=== PATIENT | male | born 1940 | race Caucasian/White ===

== ENCOUNTER 2017-01-16 21:09 | Inpatient (IN) ==
[2017-01-16 22:19] LABS: BASO% 0.1 % (0.0-0.8); EOS# 0.04 X1000 (0.0-0.7); EOS% 0.4 % (0.0-10.0); HEMATOCRIT 43.4 % (42.0-52.0); HEMOGLOBIN 13.8 g/dL (14.0-18.0); IMM GRAN# 0.03 X1000 (0.0-0.04); IMM GRAN% 0.3 % (0.0-0.5); LYMPH# 0.22 X1000 (1.2-3.4); LYMPH% 2.3 % (20.5-51.1); MANUAL DIFF NEEDED? NO; MCH 32.5 PG (27-31); MCHC 31.8 g/dL (33-37); MCV 102.4 FL (81-99); MONO# 0.11 X1000 (0.11-0.59); MONO% 1.2 % (1.7-9.3); MPV 10.6 FL (7.4-10.4); NEUT% 95.7 % (42.2-75.2); PLT 116 X1000 (130-400); RBC 4.24 XMIL (4.7-6.1)
[2017-01-16 22:36] LABS: CALCIUM 9.2 mg/dL (8.8-10.2); POTASSIUM 4.4 mmol/L (3.5-5.1); TOTAL BILIRUBIN 2.5 mg/dL (0.20-1.00); TOTAL PROTEIN 7.3 g/dL (6.3-8.3)
[2017-01-16] MEDS ORDERED: NS 2,000 ML ONE (22:51)
[2017-01-16] MEDS ORDERED: ROCEPHIN 1 GM/NS 1 GM/50 ML IVPB IV ONE (22:56)
[2017-01-16] MEDS ORDERED: VANCOMYCIN 1 GM/NS 1 GM/250 ML IVPB IV ONE (22:56)
[2017-01-16] MEDS ORDERED: NS 1,000 ML IV ONE ×3 (23:05→23:09)
[2017-01-17 00:27] LABS: INR 4.49; PROTIME 51.9 Seconds (9.2-11.7)
[2017-01-17] MEDS ORDERED: LASIX IV ONE ×2 (01:20→18:27)
--- NOTE | 2017-01-17 01:21 | PROVIDER DOCUMENTATION ---
This chart was entered by Ricardo Boothe Scribe, acting as scribe for Jam Doss MD. HPI-General Adult - General Chief Complaint: Weakness Stated Complaint: GENERALIZED PAIN, FEVER Time Seen by Provider: 01/16/17 21:35 Source: patient, family Allergies/Adverse Reactions: Patient Allergies Allergy/AdvReac Type Severity Reaction Status Date / Time No Known Allergies Allergy Verified 01/16/17 22:04 Home Medications: Home Medication List Medication Instructions Recorded Confirmed Last Taken Type Hydrocodone/APAP 7.5 mg/325 mg 1 each PO Q6H PRN PRN #15 tablet 07/18/16 Unknown Rx [[place]-7.5] - History of Present Illness -Gen Adult Nature of Presenting Problems: Pt is a 76 yowm who presents to ER with CC of confusion/chills. Family reports that last night, as pt was going to sleep, he had a sudden onset of chills. Family reports that they wrapped pt in a heated blanket and pt was able to sleep fine. Family states that pt was afebrile all day today, but sxs returned tonight when pt tried to go to sleep. Family also states that pt has been confused/altered all day today. Location of Pain/Injury: reports: none (Family states that pt complained of "pain all over" earlier today, but pt denies pain on exam.) Pain Radiation: reports: no radiation Quality of Pain: reports: none Severity: reports: moderate Onset/Duration: reports: last night Timing: reports: still present Associated Symptoms: reports: fever/chills, shortness of breath, weakness, other (confusion). denies: anxiety, chest pain, diarrhea, dizziness, headaches , heartburn, loss of appetite, muscle aches, sinus congestion/drainage, nausea, syncope, vomiting Similar Symptoms Previously?: No Review of Systems - Adult - REVIEW OF SYSTEMS - ADULT Constitutional: reports: chills, fatique. denies: fever, night sweats, weight gain, weight loss Eyes: reports: no symptoms reported Ears, Nose, Mouth & Throat: reports: no symptoms reported Cardiovascular: denies: chest pain, edema, irregular heart rate, orthopnea, palpitations, poor circulation, syncope Respiratory: reports: shortness of breath. denies: chronic cough, cough, dyspnea on exertion, excessive sputum production, hemoptysis, pleurisy, wheezing Gastrointestinal: reports: no symptoms reported Genitourinary: reports: no symptoms reported Musculoskeletal: reports: no symptoms reported Integumentary: reports: no symptoms reported Neurological: reports: no symptoms reported Psychiatric: reports: other (confused). denies: anxiety, anti-depressant use, alcohol/drug dependence, depression, emotional problems, insomnia, panic attacks , suicidal thoughts Endocrine: reports: no symptoms reported Hematologic/Lymphatic: reports: no symptoms reported Allergic/Immunologic: reports: no symptoms reported All Other Systems: Reviewed and Negative Past History - Adult - PAST MEDICAL HISTORY-ADULT Review of Records: reports: Nursing Assessment Review, Medications Reviewed - IMMUNIZATION STATUS Childhood Immunizations: See Nurse Assessment Flu Vaccine: See Nurse Assessment Physical Exam-General - PHYSICAL EXAM-ADULT Initial Vital Signs Reviewed: Yes - CONSTITUTIONAL General Appearance: appears well, alert, mild distress, lethargic, slow to respond. negative: no apparent distress - EYES Eyes: PERRL/EOMI, scleral icterus. negative: pink conjunctivae - HEAD, EARS, NOSE, MOUTH & THROAT HENMT: normocephalic/atraumatic, moist mucous membranes, normal ENT inspection, TMs normal, pharynx normal. negative: pharyngeal erythema, tonsillar exudate - NECK Neck: non-tender, full range of motion, supple, normal inspection. negative: C- spine tenderness, limited range of motion, lymphadenopathy - RESPIRATORY Respiratory: chest non-tender, lungs clear, no pleuratic chest pain, no respiratory distress, no accessory muscle use, decreased breath sounds (coarse breath sounds). negative: normal breath sounds, respiratory distress, accessory muscle use, wheezing - CARDIOVASCULAR Cardiovascular: normal peripheral pulses, tachycardia, other (HTN (155/118)). negative: regular rate, rhythm, bradycardia - GASTROINTESTINAL (ABDOMEN) Abdominal Exam: normal bowel sounds, non tender, soft, no organomegaly, no pulsatile mass. negative: abdominal bruit, guarding, rebound, tenderness - LYMPHATIC Lymphatic: no adenopathy - MUSCULOSKELETAL Back Exam: normal inspection, no CVA tenderness, no vertebral tenderness. negative: CVA tenderness, vertebral tenderness Extremity: normal range of motion, non-tender, normal gait, normal inspection, no pedal edema, no calf tenderness, normal capillary refill, pelvis stable, swelling. negative: deformity, erythema, inflammation, tenderness - SKIN Integumentary: normal turgor, warm/dry, jaundice (mild to moderately). 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 negative: facial droop, focal weakness, motor weakness, sensory deficit - PSYCHIATRIC Psych/Mental Status: oriented x 3, disheveled, other (confused). negative: normal mood/affect, normal thought content, normal thought process Progress - PLAN OF CARE/RESULTS Progress/Plan/Lab Results: Vital Signs - 8 hr 01/16/17 21:25 Temperature 98.7 F Pulse Rate 105 H Respiratory Rate 24 Blood Pressure 149/87 O2 Sat by Pulse Oximetry 94 L Orders Category Date Time Status EKG [EKG] Stat Ther 01/16/17 21:28 Ordered Result Diagrams: 01/16/17 22:00 01/16/17 22:00 - EKG 1 Time of EKG reading by physician:: 21:27 EKG Read and Signed by:: Jam Doss EKG Interpretation (*Must complete 3 of following elements*): Abnormal Rate: 121 Rhythm: Ventricular-paced rhythm with PAC with aberrant conduction 2 Time of EKG reading by physician:: 00:02 EKG Read and Signed by:: Jam Doss EKG Interpretation (*Must complete 3 of following elements*): Abnormal ( Nonspecific intraventricular block; Possible anterolateral infarct, age undetermined) Rate: 135 Rhythm: Undetermined rhythm - XRAY 1 XRAY: Bilateral XRAY Study: Chest Impression: See EMR Report XRAY Interpretation: No acute findings, no significant changes from 07/18/2016 - Dr. Doss Departure - Departure Date of Disposition Decision: 01/17/17 Time of Disposition Decision: 01:18 DIAGNOSIS: Cholelithiases Disposition: ADMITTED INPATIENT 09 Certified Medical Emergency: Emergent Condition: Stable Referrals and Follow-Ups: Zachary Landis MD [Primary Care Provider] - - Critical Care Note This patient required my direct & personal management of CC.: No Attestation - Physician/ ERIKA Attestation The physician spent face to face time with patient:: Yes Advanced Practice Provider documentation review:: The physician spent face to face time with this patient and agrees with all MLP documentation, treatment, and medical decision making by the MLP. See provider notes for further information. This chart was documented by the indicated scribe, (Ricardo Boothe Scribe) and accurately reflects the services I performed and decisions made by , Jam Doss MD, as attested by the provider's signature.
[2017-01-17 02:31] LABS: DIGOXIN 0.3 ng/mL (0.9-2.0)
[2017-01-17 03:13] LABS: URINE CULTURE NEEDED? NO; URINE MICRO REVIEW NEEDED? NO; URINE SOURCE CATH
[2017-01-17 03:17] LABS: BILIRUBIN URINE NEGATIVE (NEGATIVE); BLOOD URINE NEGATIVE (NEGATIVE); COLOR YELLOW; GLUCOSE URINE NEGATIVE (NEGATIVE); LEUKOCYTES URINE NEGATIVE (NEGATIVE); NITRITE URINE NEGATIVE (NEGATIVE); PH URINE 5.5; PROTEIN URINE 50 mg/dL (NEGATIVE); SP GRAVITY URINE 1.044; TURBIDITY URINE CLEAR (CLEAR); UROBILINOGEN URINE 3 mg/dL (NORMAL)
[2017-01-17 03:18] LABS: UR EPITHELIAL CELLS <10 /HPF (<10); URINE BACTERIA NEGATIVE /HPF; URINE RBC <10 /HPF (<10); URINE WBC <10 /HPF (<10)
[2017-01-17] MEDS ORDERED: ZOFRAN IV PRN (04:09)
[2017-01-17] MEDS ORDERED: MORPHINE IV PRN (04:14)
[2017-01-17] MEDS: PROTONIX IV SCH (04:35)
[2017-01-17] MEDS: ZOSYN 3.375 GM/NS 3.375 GM/50 ML IVPB IV SCH ×4 (04:35→23:13)
[2017-01-17] MEDS: SODIUM CHLORIDE 0.9% INJ SCH (04:35)
--- NOTE | 2017-01-17 06:11 | SEPSIS: TISSUE PERFUSION ASSMT ---
Sepsis: Tissue Perfusion Assmt - Physical Exam Assessment Date: 01/17/17 Time Assessment Initialized: 03:00 Vital Signs: Last Vital Signs Temp 96.3 F L 01/17/17 04:14 Pulse 113 H 01/17/17 04:14 Resp 30 H 01/17/17 04:14 BP 144/94 01/17/17 04:14 Pulse Ox 95 01/17/17 04:14 Height 5 ft 11 in Weight 268 lb Lung Sounds:: diminished Heart Sounds:: Regular Capillary Refill Time: Less Than 2 Seconds Peripheral Pulse Evaluation:: radial (R): 3+, radial (L): 3+, dorsalis-pedis (R) : 2+, dorsalis-pedis (L): 2+ Skin Exam:: pale - Impression Impression:: Tissue Perfusion Adequate - Plan Plan:: See Orders
[2017-01-17 06:14] LABS: HEMOGLOBIN A1C 6.7 % (4.8-6.0)
[2017-01-17 06:14] LABS: BASO% 0.1 % (0.0-0.8); EOS# 0.01 X1000 (0.0-0.7); EOS% 0.1 % (0.0-10.0); HEMATOCRIT 39.2 % (42.0-52.0); HEMOGLOBIN 12.8 g/dL (14.0-18.0); IMM GRAN# 0.08 X1000 (0.0-0.04); IMM GRAN% 0.4 % (0.0-0.5); LYMPH# 0.47 X1000 (1.2-3.4); LYMPH% 2.4 % (20.5-51.1); MANUAL DIFF NEEDED? YES; MCH 33.1 PG (27-31); MCHC 32.7 g/dL (33-37); MCV 101.3 FL (81-99); MONO# 1.43 X1000 (0.11-0.59); MONO% 7.2 % (1.7-9.3); MPV 10.8 FL (7.4-10.4); NEUT% 89.8 % (42.2-75.2); PLT 97 X1000 (130-400); RBC 3.87 XMIL (4.7-6.1)
[2017-01-17] MEDS ORDERED: NS 1,000 ML IV SCH (06:21)
[2017-01-17 06:28] LABS: PROTIME 78.8 Seconds (9.2-11.7)
[2017-01-17 06:31] LABS: INR 6.65
[2017-01-17 06:39] LABS: ALBUMIN 3.5 g/dL (3.5-5.0); CALCIUM 8.7 mg/dL (8.8-10.2); POTASSIUM 3.7 mmol/L (3.5-5.1); TOTAL BILIRUBIN 2.28 mg/dL (0.20-1.00); TOTAL PROTEIN 6.7 g/dL (6.3-8.3)
[2017-01-17] MEDS: SYNTHROID PO SCH (07:01)
[2017-01-17 07:08] LABS: BANDS 16 % (0-1); MONO 14 % (1-9)
[2017-01-17] MEDS: HUMALOG SUBQ SCH ×4 (07:09→20:10)
--- NOTE | 2017-01-17 07:11 | HISTORY AND PHYSICAL ---
DATE AND TIME OF HISTORY AND PHYSICAL: 01/17/2017 at 02:30. CHIEF COMPLAINT: Weakness. HISTORY OF PRESENT ILLNESS: Mr. Powers is a 76-year-old male with a past medical history of extensive heart disease which includes coronary artery disease, status post stent and CABG, congestive heart failure, hypertension, hyperlipidemia, and status post mitral valve replacement as well as diabetes mellitus, hypothyroidism and colorectal cancer. The patient presented to the ER tonight with complaints of fatigue, weakness, chills and shortness of breath that began approximately 2-3 days ago. His family states he has progressively gotten worse. They report that he had confusion and chills all day though did not have a fever. His also states that he has been complaining of an upset stomach and has not been eating much. The patient or his family deny him complaining specifically of any abdominal pain. The patient or his family deny him having any reports of headache, chest pain, vomiting, diarrhea or constipation. His does report that he does have swelling in his legs sometimes and this has been a little worse over the past few days as well. He does have a history of colorectal cancer and has a colostomy. His denies any change in the color or consistency of his stools and did report that along with his shortness of breath he has had a cough that has been productive. Unfortunately, the patient has not recently been at our facility and we do not have any recent medical history for him except for a history and physical in 2004. He did have an ER visit for a fractured left humerus back in July of 2016 and did have some lab work and an EKG done then. Upon initial presentation to the ER he was reported by staff to be slightly confused. His initial fingerstick blood sugar was 63. The patient was given something to eat and the patient's nurse in the ER reported that after receiving something to eat the patient's confusion did improve and after this he was alert and oriented x3. His did report that he has not been eating well though she was still giving him his diabetic medications. The patient generally does not look well. He is ill appearing. He is pale and was diaphoretic upon examination. Patient initial lactate in the ER was 6.2. He was given 2 L normal saline bolus. A CT of the abdomen and pelvis was also performed which showed that the patient had cholelithiasis with nonspecific stranding around the gallbladder. Also, an ultrasound of the right upper quadrant was performed which showed cholelithiasis and gallbladder wall thickening. The patient was given a dose of vancomycin and Rocephin initially in the ER. We have also added on Zosyn. Dr. Stover was consulted and is aware of the patient as well. At this time the patient will be admitted to the ICU for further treatment and evaluation of his cholelithiasis and sepsis. REVIEW OF SYSTEMS: A 12 point review of systems was conducted with the patient and all were negative except for pertinent positives mentioned in above HPI. PAST MEDICAL HISTORY: 1. Congestive heart failure. 2. Coronary artery disease status post CABG and stent placement. 3. Pacemaker/ defibrillator placement. 4. Mitral valve replacement. 5. Hypertension. 6. Hyperlipidemia. 7. Diabetes mellitus type 2. 8. Hypothyroidism. 9. History of colorectal cancer with colostomy placement. PAST SURGICAL HISTORY: 1. CABG. 2. Stent placement. 3. Mitral valve repair. 4. Pacemaker/ defibrillator placement. 5. History of colorectal cancer with a colostomy placement. 6. Right carotid endarterectomy. SOCIAL HISTORY: Patient currently lives at home with his who is present at bedside during examination. The patient does have a previous history of smoking though quit 20 years ago. He occasionally drinks beer socially. FAMILY HISTORY: Positive for hypertension, heart disease and stroke. ALLERGIES: Patient has no known allergies. HOME MEDICATIONS: 1. Potassium chloride 10 mEq p.o. daily. 2. Synthroid 100 mcg p.o. daily. 3. Lasix 80 mg p.o. b.i.d. 4. Sotalol 80 mg p.o. b.i.d. 5. Digoxin 125 mcg p.o. Wednesday and only. 6. Ferrous sulfate 325 mg p.o. daily. 7. Spironolactone 25 mg p.o. daily. 8. Lopressor 25 mg p.o. b.i.d. 9. Glimepiride 2 mg p.o. daily. 10. Coumadin 2.5 mg p.o. at bedtime on Wednesday, and Wednesday. 11. Coumadin 5 mg on Wednesday, Wednesday, Wednesday and Wednesday. 12. Lipitor 40 mg p.o. at bedtime. 13. [place] 7.5 mg p.o. q.6 hours p.r.n. for pain. DIAGNOSTIC DATA/LABORATORY RESULTS: White blood cell count 9.44, hemoglobin 13.8, hematocrit 43.4, platelet count is 116,000. PT 5.19, INR 4.49, PTT 40.1. D-dimer 1.0. Sodium 143, potassium 4.4, chloride 99, bicarb 21, BUN 37, creatinine 1.4 with a GFR of 49, glucose 71, calcium 9.2, total bilirubin is 2.5, AST 269, ALT 190, alkaline phosphatase is 103, CK 139, troponin 0.019. ProBNP 9147. Lipase 65, amylase 97, plasma lactate 6.2 with a repeat post fluid resuscitation of 1.9. Digoxin level was 0.3. Urinalysis was obtained via catheter and was positive for protein and was negative for ketones, blood, nitrites, leukocytes or bacteria. EKG showed a ventricular paced rhythm with premature atrial complexes with aberrant conduction at a rate of 121, QTc was 545. Chest x-ray shows early mild pulmonary edema. There are no other acute findings at this time. We are awaiting official Radiology overread. A CT abdomen and pelvis showed cholelithiasis with nonspecific stranding around the gallbladder. This could be benign related to ascites and liver disease. Further evaluation with ultrasound or HIDA scan was recommended. There was clinical concern for early cholecystitis. There was also heterogeneous nodular liver with small volume ascites, correlate clinically for hepatitis, cirrhosis or hepatic fibrosis, this was per radiology. Ultrasound right upper quadrant showed cholelithiasis and gallbladder wall thickening. Radiologist reported that this can be seen with early acute cholecystitis. Gallbladder wall thickening could also be artifact related to have hepatitis, liver failure or congestive heart failure, this was per radiology. PHYSICAL EXAMINATION: VITAL SIGNS: Temperature 98.1 degrees, heart rate 106, respirations 25, blood pressure 144/94, oxygen saturation is 94% nasal cannula at 3 L. GENERAL: Mr. Powers is a pleasant 76-year-old male who was resting in the ER stretcher. He does appear to be ill in appearance. The patient is slightly pale and diaphoretic. Though he was slightly drowsy during our examination, he was easily arousable with verbal stimulation and was alert and oriented. HEENT: Head is atraumatic, normocephalic. Pupils are equal, round, reactive to light, are 3 mm bilaterally and brisk. Sclerae were white. No lesions noted. Subconjunctivae were pink. Oral mucosa was slightly dry. Oropharynx is clear. NECK: Supple. Trachea midline. Patient does have JVD noted. No carotid bruits noted upon auscultation bilaterally. CARDIOVASCULAR: Patient has normal S1, S2. No murmurs, gallops or rubs appreciated with a tachycardic rate that was irregular. PULMONARY: Patient has symmetrical chest expansion bilaterally. Lung sounds in bilateral full newell were diminished. ABDOMEN: Soft, nontender, nondistended though the patient does have a protuberant abdomen noted. Bowel sounds were present in all 4 quadrants, were normoactive. Patient does have a colostomy noted in the left lower quadrant. GENITOURINARY: Patient does have a Laws catheter in place at this time and does have a light luanne colored urine noted to a Laws drainage bag. EXTREMITIES: No cyanosis or clubbing noted. The patient does have some swelling noted in bilateral lower extremities from approximately mid calf down. This has 1+ pitting edema just around the ankle area. He does have some discoloration noted to bilateral lower extremities consistent with peripheral vascular disease. Pulse, motor and sensory are intact in all extremities. Pedal pulses were slightly difficult to palpate though the posterior tibialis was easily obtainable with venous Doppler. INTEGUMENTARY: Patient's skin is slightly pale, warm, intact, though the patient is slightly diaphoretic. NEUROLOGICAL: Patient is alert and oriented to person, place, and time. Cranial nerves 2-12 appear to be grossly intact. ASSESSMENT AND PLAN: 1. Cholelithiasis. We have consulted Dr. Stover with surgery and are awaiting his evaluation and further recommendations. The patient will remain NPO at this time. The patient is showing signs of sepsis. We have placed him on Zosyn 3.375 g IV q.6 hours. Blood cultures have been obtained. The patient did receive a 2 L normal saline fluid bolus and we will continue to monitor his condition very closely. 2. Sepsis. As previously mentioned, for this we have placed the patient on Zosyn. He has been fluid resuscitated as well. Initial lactate was. 6.2 with a repeat after fluid resuscitation of 1.9. 3. Acute kidney injury. This could be possibly related to sepsis. We will continue to monitor this closely. We will renally dose medications and continue to follow. 4. Congestive heart failure. After the patient's fluid resuscitation bolus in the ER, we did give him 100 mg of Lasix IV. We will give Lasix 40mg IV every 12 hours and continue his metoprolol. Given the patient's extensive cardiac history we have place a cardiology consult as well. 5. Coronary artery disease, status post coronary artery bypass graft and stent placement. 6. History of mitral valve replacement. The patient currently takes Coumadin for his valve replacement. He has a supratherapeutic INR, his INR is elevated at 4.49, we will hold his Coumadin at this time and repeat an INR in the morning and continue to follow. 7. Hypertension. We will continue his antihypertensive medications. 8. Hyperlipidemia. We will continue his Lipitor. 9. Diabetes mellitus type 2. We will hold the patient's glimepiride at this time given his acute kidney injury though we will place him on a low-dose sliding scale lispro insulin if needed though the patient was initially slightly hypoglycemic upon arrival, though the patient had not been eating well and was still taking his diabetic medications. We will do fingerstick blood sugars every 4 hours and will closely monitor. 10. Hypothyroidism. We will continue the patient's Synthroid. We have ordered a TSH level as well. The patient will be placed in the ICU with telemetry. He will have vital signs per ICU protocol. We will continue with neuro checks q.4, place him on aspiration precautions as well and do incentive spirometry q.4 hours while awake. He will be NPO at this time. We will repeat a CBC, CMP, and INR in the morning as well as do a series of troponins given that his troponin was slightly elevated at 0.016. Further orders and recommendations pending hospital course, diagnostic studies and physician evaluation. Dictated by CHIDI Mcfarlane for Fei Mckenna MD Pt has symptoms consistent with cholecystitis and will be seen by Dr. Stover in a.m. Critical care time 35mins. Pressor maybe needed. May need reversal of INR before surgery can be done. cc: Fei Mckenna MD MTDD
[2017-01-17] MEDS: D50W SYRINGE ONE ×2 (07:12→19:45)
[2017-01-17] MEDS ORDERED: ROCEPHIN IV SCH (08:45)
[2017-01-17] MEDS ORDERED: VANCOMYCIN IV PER PHARMACY MISC SCH (08:45)
--- NOTE | 2017-01-17 08:56 | CONSULTATION ---
DATE OF CONSULTATION: 01/17/2017 REASON FOR CONSULTATION: Cholelithiasis. HISTORY OF PRESENT ILLNESS: This is a 76-year-old male who, for the last 2 weeks, has had some vague symptoms of intermittent chills, weakness, malaise, and poor appetite. He denies any abdominal pain, chest pain, shortness of breath, or other systemic complaints. He also, as of last night and this morning in the emergency room, seemed somewhat confused. PAST MEDICAL HISTORY: Coronary artery disease, [place], carotid artery disease, hypothyroidism, rectal cancer, mitral valve regurgitation, hypertension, hyperlipidemia, type 2 diabetes, hypothyroidism, congestive heart failure. PAST SURGICAL HISTORY: Heart catheterization with stent placement, possible CABG, definite mitral valve replacement, pacemaker and defibrillator placement, partial colectomy or APR with colostomy, right carotid endarterectomy. HOME MEDICATIONS: Potassium chloride, Synthroid, Lasix, sotalol, digoxin, ferrous sulfate, spironolactone, Lopressor, glimepiride, Coumadin, Lipitor, [place]. FAMILY HISTORY: Positive for hypertension, heart disease, and stroke. ALLERGIES: No known drug allergies. SOCIAL HISTORY: He denies tobacco, although he did quit smoking 20 years ago. He drinks beer occasionally. 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 He is with children and lives here in [place]. REVIEW OF SYSTEMS: Ten systems reviewed and negative except as noted above. PHYSICAL EXAMINATION: Vital Signs: Temperature 97.7 degrees, pulse 119, respirations 25, O2 saturation 98%. Blood pressure 112/95. General: He is alert. He is oriented x3 but mildly confused, in no acute distress. HEENT: Normocephalic, atraumatic. Extraocular muscles intact. Pupils equal, round, reactive to light. Sclerae with mild icterus. Neck: Supple. No thyromegaly. CV: Regular rate and rhythm. Respiratory: Bilateral equal breath sounds. No work of breathing. GI: Soft, nontender, nondistended. No organomegaly or mass. No hernias. He has a healed midline incision and a left lower quadrant colostomy with green-tinged stool. Extremities: No clubbing, cyanosis, or edema. Skin: Warm and dry. No rash. Musculoskeletal: Moves all extremities equally and well. LABORATORY: White blood cell count 20,000, hemoglobin 12.8, platelet count 97,000. INR 6.6. Sodium 141, potassium 3.7, chloride 103, CO2 26, BUN 36, creatinine 1.5, glucose 56. Total bilirubin 2.3, AST 14, and ALT 254. Lactate 6.2 originally, now 1.9 this morning. Albumin 3.5. Urinalysis is negative for infection. IMAGING: CT scan of the abdomen and pelvis has been reviewed by me. He does have some gallstones and mild inflammatory changes around the gallbladder with a small volume of ascites, a nodular liver. Ultrasound of the abdomen revealed an enlarged liver, cholelithiasis, and wall thickening of the gallbladder up to 7 mm. The common bile duct is normal in size. ASSESSMENT AND PLAN: A 76-year-old male with likely acute cholecystitis. He has some signs of sepsis. Initially, his heart rate was very tachycardic with the confusion and leukocytosis. At this point, we will ask cardiology for assistance in evaluation of his heart function. We will reverse his INR with fresh frozen plasma and likely put him on a heparin drip perioperatively. We are planning laparoscopic cholecystectomy with cholangiogram when his INR is at 1.5 or lower. I have discussed the risks, benefits, and alternatives to surgery with him and his family including bleeding, infection, injury to surrounding organs such as the bile duct or intestines, heart failure, respiratory failure, and other imponderables. They understand and are somewhat agreeable, although we are determining the function of his heart and whether the family will want to move him closer to his heart surgeon at [facility]. cc: Giacomo Stover MD
--- NOTE | 2017-01-17 09:08 | PROGRESS NOTE ---
DATE: 01/17/2017 SUBJECTIVE: He was admitted earlier this morning. This is a 76-year-old with a past medical history of extensive heart disease which includes coronary artery disease status post stent and CABG, congestive heart failure, hypertension, hyperlipidemia, status post mitral valve replacement, as well as diabetes mellitus, hypothyroidism, and colorectal cancer. The patient presented to the emergency room yesterday with complaints of fatigue, weakness, chills, shortness of breath that he had approximately 2-3 days ago. His family states appearance has gotten worse. Report is that he has had confusion and chills all day but did not have fever. His also states that he has been complaining of an upset stomach and is not eating that much. The patient and his family deny any complains specifically of abdominal pain. The patient and his family deny any reports of headache, chest pain, vomiting, diarrhea, or constipation. His does report that he does have swelling in his legs sometimes and this has been a little worse over the past few days. He does have a history of colorectal cancer. He had a colostomy but states no change in color or consistency. Denies any change in color or consistency of his stools. We do not have any recent medical records from this facility. On presentation to the ER, he was found slightly confused. Initial fingerstick of 63. Patient was given something to eat. The patient and nurse reported after receiving something to eat, the patient's confusion improved. He was oriented x3. Patient reported he has been eating well. He was not eating well but she still gave him diabetic medications. Patient generally does not look well, ill-appearing, pale and diaphoretic. Initially, lactate in the ER was 6.2. Was given 2 L normal saline bolus. CT of the abdomen and pelvis also performed showed the patient had cholelithiasis, nonspecific stranding around the gallbladder. An ultrasound of the right upper quadrant was performed which showed cholelithiasis and gallbladder wall thickening. Patient given a dose of vancomycin and Rocephin. Admitted to the unit here in bed 11. He has remained afebrile. PHYSICAL EXAMINATION: Vital Signs: Temperature 97.7 degrees, pulse 114, respirations 33, blood pressure 117/78. HEENT: Pupils are equal and round. Lungs: Lungs are clear in all lung newell anterolateral. Cardiovascular Examination: Regular rhythm and rate without murmur or S3. Abdomen: Soft. Skin: Is warm and dry. Extremities: He has trace pedal edema. LABORATORY DATA: Blood sugars 151 and 131. White count was 20,000, hematocrit 39, platelet count 97,000. Sodium 141, potassium 3.7, chloride 103, bicarb 26, BUN 36, creatinine 1.5, hemoglobin A1c was 6.7. Total bilirubin was 2.28, AST 14, and ALT 254. Troponin was 0.014. ProBNP was 9147. PT was 78 with an INR of 6.65. Urinalysis unremarkable. ASSESSMENT AND PLAN: 1. Cholelithiasis. It looks like possible acute cholecystitis with elevated lactate and evidence of sepsis. He did have low sugar and sensorium has improved. Blood pressure looks good. Dr. Stover is following. We are going to try get his INR down with some fresh frozen plasma, 2. Mitral valve replacement and underlying coronary artery disease. Aware. Need to get his INR down for a cholecystectomy. 3. Sepsis/ blood pressure better. He was given liberal fluids and on broad-spectrum antibiotics. 4. Acute kidney injury. Continue to follow his renal function. Creatinine is 1.5. 5. The plan is to give him 4 units of fresh frozen to see if we can get him ready for surgery. I think I will continue his vancomycin and ceftriaxone. cc: Agustín Capone MD
[2017-01-17] MEDS: BETAPACE PO SCH ×2 (09:09→20:12)
[2017-01-17] MEDS: LOPRESSOR PO SCH ×2 (09:09→20:13)
[2017-01-17] MEDS: ROCEPHIN 1 GM/NS 1 GM/50 ML IVPB IV SCH (09:09)
--- NOTE | 2017-01-17 09:37 | Diag Imaging Result Doc PS360 ---
EXAM: CT ABD/PELVIS W/ IV CONT ONLY INDICATION: jaundice COMPARISON: 02/22/2013 FINDINGS: There is a stable prominent calcified granuloma at the left lung base. There is cardiomegaly. There is no discrete hepatic mass. The liver parenchyma is mildly heterogeneous, which could indicate hepatocellular disease. There is small volume ascites tracking around the liver and layering in the pelvis. There are calcified stones near the neck of the gallbladder. The gallbladder is nondistended. There is fluid and stranding around the gallbladder. This may simply be due to the adjacent ascites or hepatocellular disease. Correlate clinically to exclude cholecystitis. There is stable mild nodularity involving the left adrenal gland most consistent with a small adenoma. The left colostomy is patent. There is a stable small supraumbilical hernia containing a loop of small bowel. There is no evidence of obstruction. There is stable presacral fat stranding that is likely related to prior surgery and/or radiotherapy. No definite local mass recurrence is appreciated. No new lymphadenopathy is appreciated. There is approximately stable aortoiliac atherosclerotic calcification. The remainder of the solid viscera of the abdomen and pelvis and the remainder of the GI tract are essentially unremarkable. There is advanced lumbar spine degenerative arthropathy. IMPRESSION: 1.Small volume ascites. 2.Vaguely heterogeneous liver suggesting possible hepatocellular disease. No discrete hepatic mass is appreciated. 3.Cholelithiasis with fluid and stranding around the gallbladder. Please see the above discussion. 4.Stable presacral fat stranding that is probably postsurgical/post therapeutic. 5.Other incidental/nonacute findings detailed above. Electronically signed by Zachary Blanchard 01/17/2017 9:34 AM
[2017-01-17 09:58] LABS: INR 7.54; PROTIME 92.1 Seconds (9.2-11.7)
[2017-01-17] MEDS ORDERED: VANCOMYCIN 2,500 MG in NS 500 ML IV ONE (10:00)
--- NOTE | 2017-01-17 10:22 | Diag Imaging Result Doc PS360 ---
EXAM: US GB < RUQ (LIMITED) INDICATION: jaundice and abnormal lfts COMPARISON: None. FINDINGS: There are a few shadowing stones in the gallbladder lumen near the neck of the gallbladder. There is gallbladder wall thickening with the wall measuring up to 7 mm. The common bile duct is normal in diameter. Sonographic Ricketts's sign was reported to be negative. The liver is grossly unremarkable by ultrasound. There are no discrete hepatic masses. There is pulsatile portal venous flow. This is nonspecific but is often associated with congestive heart failure. Note that there was cardiomegaly seen on a recent CT. The pancreas is obscured. The mid and distal aorta are largely obscured. The visualized portions of the aorta are grossly unremarkable. The IVC is unremarkable. The right kidney is grossly unremarkable. IMPRESSION: 1.Cholelithiasis with gallbladder wall thickening. As was stated on the recent CT abdomen report, this certainly may be due to known ascites or perhaps hepatocellular disease. However, in the right clinical scenario, cholecystitis cannot be excluded. 2.Pulsatile portal venous flow, probably related to congestive heart failure. Electronically signed by Zachary Blanchard 01/17/2017 10:20 AM
--- NOTE | 2017-01-17 10:51 | Diag Imaging Result Doc PS360 ---
EXAM: CHEST-1 VIEW INDICATION: sepsis TECHNIQUE: One view COMPARISON: 07/18/2016 FINDINGS: Interstitial markings appear mildly thickened similar to the previous study. This is likely a combination of chronic mild fibrotic change and mild interstitial edema. There is suggestion of mild subsegmental atelectasis at the right mid and lower lung zone. At least no large pleural fluid collection is appreciated. There is stable cardiomegaly and CABG changes. There is a stable left-sided pacemaker. IMPRESSION: Cardiomegaly and mild increased interstitial markings that are similar to the previous study. Electronically signed by Zachary Blanchard 01/17/2017 10:48 AM
--- NOTE | 2017-01-17 13:21 | CONSULTATION ---
DATE OF CONSULTATION: 01/17/2017 INDICATION FOR THE CONSULTATION: History of congestive heart failure, mechanical mitral valve replacement, and paroxysmal atrial fibrillation. HISTORY OF PRESENT ILLNESS: Mr. Powers is a 76-year-old white male with a history of coronary bypass, mechanical mitral valve replacement, and atrial fibrillation, normally followed by Dr. Su in [place]. He presented with complaints of apparent chills and some mild nausea. An abdomen and pelvis CT was performed, demonstrating cholelithiasis with fluid and stranding around the gallbladder. In addition, he had an abdominal ultrasound performed demonstrating gallbladder wall thickening. He has not really had any abdominal pain. No vomiting. In addition, there has been no chest pain. He has had no orthopnea. There has been no recent worsening in his shortness of breath. PAST MEDICAL HISTORY: Significant for: 1. Ischemic cardiomyopathy with EF of 25 to 30 by an echo roughly 1 year ago. 2. ICD implantation. 3. History of mechanical mitral valve. 4. Hypertension. 5. Hyperlipidemia. 6. Diabetes. 7. Hypothyroidism. 8. History of colorectal cancer with resection anywhere from 5-7 years ago with subsequent chronic colostomy. 9. History of carotid artery disease with previous carotid endarterectomy. SOCIAL HISTORY: He is . His is present at the bedside. Quit smoking around 20 years ago. Occasional, rare alcohol use. FAMILY HISTORY: Significant for hypertension, heart disease, and stroke. REVIEW OF SYSTEMS: A 10 system review of systems is negative except for those things mentioned in the HPI. PHYSICAL EXAMINATION: Vital signs: He is afebrile. Heart rate of 97, blood pressure 115/71. General: He is in no acute distress. HEENT: Oropharynx is moist. Normal dentition. His eye examination shows pink conjunctivae, white sclerae. Neck: Examination shows no obvious thyromegaly or thyroid tenderness. Cardiovascular: He is in a regular rate and rhythm. He has no obvious murmurs. He has no S3. He has no lower extremity edema. Chest: Exam sounds relatively clear to auscultation bilaterally. He has poor inspiratory effort. Abdomen: Soft. There is no obvious tenderness. No rebound. No guarding. He has good bowel sounds. Skin Exam: Warm and dry throughout. Neurological: Moving all extremities well. Cranial nerves 2 through 12 are intact without any sensation deficits. Psychiatric: Alert, oriented, pleasant. Normal mood and affect. PERTINENT DATA: His white count is 20. His hematocrit is 39. His platelet count is 97,000. He has 16% bands. His INR 7.5. His sodium is 141, potassium 3.7, BUN 36, creatinine is 1.5. His proBNP is 9,147. His lactate yesterday was 6.2. His AST was 410, ALT 254, with a T. bilirubin of 2.28. He has no EKG present right now. ASSESSMENT: Mr. Powers is a 76-year-old male with an ischemic cardiomyopathy, mechanical mitral valve, as well as paroxysmal atrial fibrillation, who presented with what seems like an infectious illness, most likely cholecystitis. PLAN: He is given FFP presently. When his INR drops below 2.5 I would start a heparin infusion and this can be stopped for the operation when needed and hopefully resumed as soon as possible. We will follow his volume status closely. He has a mild elevation in his creatinine with the last 1 being 1.0 in July of 2016. He does not seem to be in acute heart failure presently as he is lying flat in bed and comfortable. cc: Wilton Graff MD
[2017-01-17] MEDS ORDERED: D50W SYRINGE ONE (15:45)
--- NOTE | 2017-01-17 15:47 | Diag Imaging Result Doc PS360 ---
EXAM: CHEST-PORTABLE INDICATION: SOB, Repeat TECHNIQUE: One view COMPARISON: 01/16/2017 FINDINGS: Bilateral infiltrates most compatible with edema are grossly stable. There are no new consolidations. There is stable cardiomegaly. IMPRESSION: Grossly stable chest. Electronically signed by Zachary Blanchard 01/17/2017 3:44 PM
[2017-01-17 15:50] LABS: INR 2.68
[2017-01-17] MEDS ORDERED: VITAMIN K 10 MG in NS 50 ML IV ONE (16:02)
[2017-01-17] MEDS ORDERED: D5 NS 1,000 ML IV SCH ×2 (16:02→18:28)
[2017-01-17 20:01] LABS: INR 2.14; PROTIME 23.6 Seconds (9.2-11.7)
[2017-01-17] MEDS: LASIX IV SCH (20:10)
[2017-01-17] MEDS: LIPITOR PO SCH (20:13)
[2017-01-17] MEDS ORDERED: NS 1,000 ML IV ONE (20:23)
[2017-01-17 20:36] LABS: ALLEN TEST YES; BLOOD TYPE ARTERIAL; DRAW SITE R RADIAL; O2(CT) 17.7 mL/dL (15.0-23.0); PO2(98.6) 374 mmHg (60-100); SAMPLE BLOOD; THB 12.2 g/dL (11.5-17.4); pH(98.6) 7.21 (7.35-7.45)
[2017-01-17 20:37] LABS: MODALITY NRB; PCO2(98.6) 74 mmHg (35-45)
[2017-01-17] MEDS ORDERED: QUELICIN ONE (21:18)
[2017-01-17] MEDS: DIPRIVAN 1% 1,000 MG/100 ML BOTTLE IV SCH ×2 (21:30→23:26)
[2017-01-17] MEDS ORDERED: LEVOPHED 8 MG in D5 1/2 NS 250 ML IV SCH (21:30)
[2017-01-17 21:38] LABS: HEMATOCRIT 38.7 % (42.0-52.0); HEMOGLOBIN 12.5 g/dL (14.0-18.0); MCH 33.4 PG (27-31); MCHC 32.3 g/dL (33-37); MCV 103.5 FL (81-99); MPV 11.5 FL (7.4-10.4); RBC 3.74 XMIL (4.7-6.1)
[2017-01-17 21:51] LABS: CALCIUM 8.9 mg/dL (8.8-10.2); POTASSIUM 4.4 mmol/L (3.5-5.1); TOTAL BILIRUBIN 2.49 mg/dL (0.20-1.00); TOTAL PROTEIN 7.4 g/dL (6.3-8.3)
[2017-01-17] MEDS ORDERED: NS 500 ML ONE (22:20)
--- NOTE | 2017-01-17 22:41 | OPERATIVE NOTE ---
PROCEDURE DATE: 01/17/2017 PREOPERATIVE DIAGNOSIS: 1. Septic shock. 2. Respiratory failure. 3. Acute cholecystitis. POSTOPERATIVE DIAGNOSIS: 1. Septic shock. 2. Respiratory failure. 3. Acute cholecystitis. PROCEDURE: Central venous catheter placement with ultrasound guidance. SURGEON: Giacomo Stover MD. ESTIMATED BLOOD LOSS: Scant. COMPLICATIONS: None apparent. FINDINGS: The right internal jugular vein was found to be patent and compressible and without thrombus. TECHNIQUE: He was placed in Trendelenburg. He was already mechanically ventilated and sedated. His right neck was prepped and draped in usual sterile fashion. The right internal jugular vein was visualized with the ultrasound. It was accessed with a needle and brock back dark nonpulsatile blood. The wire passed easily. The tract was dilated. A triple-lumen central venous catheter was passed over the wire via the Seldinger technique. The catheter was sutured to the skin with silk tape and a sterile dressing was applied. There were no apparent complications. A chest x- ray was ordered. cc: Giacomo Stover MD
[2017-01-17 23:01] LABS: ALLEN TEST YES; BE 0.5 mmoll (-3.0-3.0); BLOOD TYPE ARTERIAL; DRAW SITE R RADIAL; METHB 0.9 % (0.0-1.5); O2(CT) 15.4 mL/dL (15.0-23.0); PO2(98.6) 94 mmHg (60-100); SAMPLE BLOOD; SAO2 98.5 % (95.0-100.0); SRATE 20 BPM; THB 11.4 g/dL (11.5-17.4); TVOL 500 mL; pH(98.6) 7.32 (7.35-7.45)
[2017-01-17 23:03] LABS: MODALITY VENTILATOR
[2017-01-17 23:04] LABS: PCO2(98.6) 53 mmHg (35-45)
--- NOTE | 2017-01-17 23:27 | PROGRESS NOTE ---
DATE: 01/17/2017 The patient has been more confused over the course of the late afternoon and early evening. Also, requiring a greater oxygen delivery to maintain his oxygenation status. Urine output also dropped off this evening to 15 mL over 2 hours. At that time, I ordered a liter bolus of crystalloid. We checked an ABG. He was found to be in respiratory acidosis. We went ahead and electively intubated him and consulted Dr. Diaz. In the meantime, I have placed a central venous line for better IV access and measurement of central venous pressures. His central venous pressure at this time is 21. Chest x-ray shows pulmonary edema. His blood pressure is low. He is on a propofol drip. We have had to restart a Levophed, with improvement in blood pressure, with a systolic of 140s. The liver function tests were checked this evening, and AST and ALT have elevated. His bilirubin remains 2.2. His INR after 6 units of FFP today has come down, but only to 2.1. PHYSICAL EXAMINATION: He is still nontender, nondistended. He is now intubated and sedated, with some crackles in both lungs. ASSESSMENT AND PLAN: A 76-year-old male with septic shock, in the setting of acute cholecystitis, now [id number] congestive heart failure, acute renal failure, shock liver, and respiratory failure. We are going to give him 2 more units of FFP and recheck his INR. If his blood pressure does not worsen, and his INR improves, then I am tentatively planning laparoscopic versus open cholecystectomy and cholangiogram tomorrow. I appreciate Dr. Diaz's assistance. cc: Giacomo Stover MD
[2017-01-17] MEDS: DUONEB (A & A) INH SCH (23:42)
--- NOTE | 2017-01-17 23:52 | CONSULTATION ---
DATE OF CONSULTATION: 01/17/2017 REQUESTING PHYSICIAN: Dr. Stover. REASON FOR CONSULTATION: Respiratory failure. HISTORY OF PRESENT ILLNESS: Mr. Powers is a 76-year-old white male, with prior tobacco history, diabetes mellitus, ischemic cardiomyopathy, diabetes mellitus, who presented to the emergency room. The patient was going to sleep the night before, when he developed sudden chills, but he did go to sleep. The patient had keturah confused all day, on the day of admission by the ER note. The patient was brought to the emergency room, and had a serum lactate of 6. The following morning it had dropped to 1.9. Alkaline phosphatase was elevated at 190. CT scan of the abdomen and pelvis was performed, which revealed cholelithiasis with stranding around the gallbladder. The patient has history of mitral valve, and received blood products today to correct an elevated INR. He became progressively confused and hypoxemic today. Arterial blood gas was performed, which revealed a pH 7.21, pCO2 of 74, and a PO2 of 374. Patient's case was discussed with this practitioner by Dr. Stover, and intubation was recommended. The patient was intubated by the ERR physician. I adjusted the ventilator settings, and his post ventilator arterial blood gas reveals a pH 7.32, pCO2 of 53, and PO2 of 94, on 50% FiO2. A central line was placed by Dr. Stover, and CVP was obtained, which was greater than 20. He has mild hypotension, and his blood pressure has improved with Levophed. PAST MEDICAL HISTORY: 1. Ischemic cardiomyopathy with an ejection fraction of 25%. 2. Status post AICD placement. 3. Status post mitral valve replacement. 4. Diabetes mellitus. 5. Hypothyroidism. 6. Remote history of colon cancer. 7. Status post carotid endarterectomy. SOCIAL HISTORY: Prior tobacco use. Rare alcohol use. FAMILY HISTORY: Positive for heart disease, stroke and hypertension. REVIEW OF SYSTEMS: Limited. PHYSICAL EXAMINATION: General: Reveals an overweight/obese white male on mechanical ventilation. vital signs: Temperature earlier this evening was 95, blood pressure 124/98, heart rate 76, oxygen saturation currently 99%. HEENT: Pupils are equal and reactive. Oropharynx is clear, but evaluation is limited with endotracheal tube in place. Neck: Supple. Chest: Reveals good air entry bilaterally with faint crackles. Cardiac: Distant heart sounds. Normal S1, normal S2. Abdomen: Obese and soft. Extremities: Cool to the touch. LABORATORIES: Endotracheal tube is present in the neck. The endotracheal tube was advanced 3 cm. Central line is in good position. Repeat arterial blood gas, pH 7.38, pCO2 of 53, PO2 of 94. Chemistries: Sodium 143, potassium 4.4, chloride 101, bicarbonate 26, BUN 35, creatinine 1.5, glucose earlier today was 48. Bilirubin is 2.49. AST is elevated at 1,444, ALT is 881. White blood count is 11.52, hemoglobin 12.5, platelet count 78,000. Blood cultures are positive for gram-positive cocci. IMPRESSION: Critically ill male, with multiple medical problems, who has evidence of shock, and acute hypoxemic and hypercapnic respiratory failure. The patient has elevated liver enzymes along with hypothermia. Patient most likely has a combination of septic shock and cardiogenic shock. He has been intubated, and his arterial blood gas has improved. His CVP is elevated, and he will not tolerate additional fluid resuscitation at this juncture. RECOMMENDATIONS: 1. Continue full ventilatory support. 2. Continue antibiotics. 3. Levophed as needed for blood pressure support. 4. Gastric acid suppression. 5. Routine bronchodilators. 6. Surgery when patient has improved. 7. Additional recommendations pending hospital course. cc: Yinka Diaz MD
[2017-01-18] MEDS ORDERED: HEPARIN 25,000 UNITS/D5W 25,000 UNIT/250 ML IV.SOLN IV SCH (00:15)
[2017-01-18] MEDS: D5 NS 1,000 ML IV SCH ×2 (00:26→23:13)
[2017-01-18] MEDS: DIPRIVAN 1% 1,000 MG/100 ML BOTTLE IV SCH ×4 (02:18→21:19)
[2017-01-18 02:53] LABS: INR 1.77; PROTIME 19.3 Seconds (9.2-11.7)
[2017-01-18] MEDS: DUONEB (A & A) INH SCH ×6 (02:56→23:00)
[2017-01-18] MEDS: SODIUM CHLORIDE 0.9% INJ SCH (03:39)
[2017-01-18] MEDS: PROTONIX IV SCH (03:39)
--- NOTE | 2017-01-18 07:11 | EKG Report ---
Test Performed on : 01/17/2017 00:02:47 AM Test Reason : irregular hr Blood Pressure : / mmHG Vent. Rate : 135 BPM Atrial Rate : 038 BPM P-R Int : 000 ms QRS Dur : 148 ms QT Int : 398 ms P-R-T Axes : 044 029 177 degrees QTc Int : 597 ms Undetermined rhythm Nonspecific intraventricular block Possible Anterolateral infarct , age undetermined Abnormal ECG When compared with ECG of 16-JAN-2017 21:27, (Unconfirmed) Current undetermined rhythm precludes rhythm comparison, needs review Unconfirmed Result
--- NOTE | 2017-01-18 07:20 | EKG Report ---
Test Performed on : 01/16/2017 9:27:36 PM Test Reason : temp and O2 sat Low Blood Pressure : / mmHG Vent. Rate : 121 BPM Atrial Rate : 115 BPM P-R Int : 000 ms QRS Dur : 142 ms QT Int : 384 ms P-R-T Axes : 000 262 110 degrees QTc Int : 545 ms Ventricular-paced rhythm with premature atrial complexes. with aberrant conduction. Abnormal ECG When compared with ECG of 18-JUL-2016 20:54, aberrant conduction. is now present Vent. rate has increased BY 28 BPM Unconfirmed Result
--- NOTE | 2017-01-18 07:31 | Diag Imaging Result Doc PS360 ---
CHEST-PORTABLE - 01/17/2017 at 2140 INDICATION: ET tube placement TECHNIQUE: COMPARISON: 01/17/2017 at 1524 FINDINGS: There is an endotracheal tube at the lower cervical airway, at about C6-C7. Stable pacemaker and cardiomegaly. There is decrease in the ill-defined bilateral infiltrates. IMPRESSION: High endotracheal tube position, at C6-C7. Electronically signed by Willi Jackson 01/18/2017 7:29 AM
--- NOTE | 2017-01-18 07:32 | Diag Imaging Result Doc PS360 ---
CHEST-PORTABLE - 01/17/2017 at 2230 INDICATION: central line placement TECHNIQUE: COMPARISON: 2139 FINDINGS: Stable high intubation with the endotracheal tube tip at C6-C7. There is a new internal jugular right central line in good position with the tip at the lower SVC. There is once again worsening in the bilateral hazy infiltrates compatible with pulmonary edema. IMPRESSION: 1. Stable high intubation at C6-C7. 2. Good central line placement. Electronically signed by Willi Jackson 01/18/2017 7:30 AM
[2017-01-18 07:35] LABS: INR 1.8; MAGNESIUM 2.1 mg/dL (1.5-2.7); PROTIME 19.6 Seconds (9.2-11.7)
[2017-01-18 07:36] LABS: AGAP 14; ALBUMIN 3.3 g/dL (3.5-5.0); ALKALINE PHOSPHATASE 70 U/L (32-122); BUN 36 mg/dL (8-22); CALCIUM 8.4 mg/dL (8.8-10.2); CHLORIDE 103 mmol/L (98-107); COSMO 296; FREE T4 1.34 ng/dL (0.93-1.70); GOT 1949 U/L (10-34); GPT 1127 U/L (10-44); POTASSIUM 3.5 mmol/L (3.5-5.1); SODIUM 144 mmol/L (136-145); TCO2 27 mmol/L (25-35); TOTAL BILIRUBIN 2.79 mg/dL (0.20-1.00); TOTAL PROTEIN 6.2 g/dL (6.3-8.3)
--- NOTE | 2017-01-18 08:01 | Diag Imaging Result Doc PS360 ---
EXAM: CHEST-PORTABLE HISTORY: respiratory failure TECHNIQUE: COMPARISON: 01/17/2017 FINDINGS: No change in the right jugular line or left-sided pacemaker. Sternal wires are present. The heart remains enlarged. Mild central vascular prominence. Questionable tiny right effusion. The overall appearance is quite similar to that of the prior exam. IMPRESSION: No interval improvement Electronically signed by Tanner Clayton 01/18/2017 7:58 AM
[2017-01-18 08:06] LABS: ALLEN TEST YES; BE 3.7 mmoll (-3.0-3.0); BLOOD TYPE ARTERIAL; DRAW SITE R RADIAL; O2(CT) 15.2 mL/dL (15.0-23.0); PCO2(98.6) 43 mmHg (35-45); PO2(98.6) 136 mmHg (60-100); SAMPLE BLOOD; SAO2 99.7 % (95.0-100.0); SRATE 20 BPM; TVOL 500 mL; pH(98.6) 7.43 (7.35-7.45)
[2017-01-18 08:09] LABS: HEMATOCRIT 34.4 % (42.0-52.0); HEMOGLOBIN 10.8 g/dL (14.0-18.0); MCH 32.6 PG (27-31); MCHC 31.4 g/dL (33-37); MCV 103.9 FL (81-99); RBC 3.31 XMIL (4.7-6.1)
[2017-01-18] MEDS: SYNTHROID PO SCH (08:20)
[2017-01-18] MEDS: BETAPACE PO SCH ×2 (08:20→21:11)
--- NOTE | 2017-01-18 09:34 | PROGRESS NOTE ---
DATE: 01/18/2017 SUBJECTIVE: Mr. Powers started becoming more short of breath and increased pulmonary edema. He was intubated last night. Put on a low dose of Levophed. He remains afebrile. PHYSICAL EXAMINATION: Vital Signs: Temperature 97.5 degrees, pulse 108, respirations per ventilator, blood pressure 82/58. Is and Os: Urine output is declined. DIAGNOSTIC DATA: White count 8750, hematocrit 34, platelet count 81,000. Chemistries: Creatinine 1.4, sodium 144, potassium 3.5, chloride 103, bicarb 27. His liver functions have gone up. AST 1949, ALT 1127, total bilirubin 2.79. Vitamin B12 was greater than 2000, folate was 12.9. Chest x-ray from this morning, no interval improvement. No change in the right jugular line, left-sided pacemaker, sternal wires are present, remains mild central vascular prominence, questionable right effusion, overall appearance quite similar to that prior. Chest x-ray which was done on 01/17/2017. Previous chest x-ray, this was before intubation at 1500, bilateral infiltrates most compatible with edema, grossly stable. ASSESSMENT AND PLAN: 1. History of congestive heart failure, mitral valve replacement, paroxysmal atrial fibrillation. He appears to have cholecystitis and cholelithiasis. Trying to get his INR down to 1.6-1.5. Will need a cholecystectomy. 2. Pulmonary edema, respiratory failure, CO2 retention, intubated. Doing better. Urine output had declined. Also noted his liver enzymes, transaminases went up. I think that is due to liver congestion and it may complicate us trying to get his INR down. 3. Mitral valve, atrial fibrillation, left ventricular dysfunction. We are going to recheck an echocardiogram to see if we can get him tuned up to have his gallbladder out. He had a CT scan done. CT scan was done on 01/17/2017 of his abdomen, small volume ascites, vaguely heterogeneous liver suggesting possible hepatocellular disease, cholelithiasis with fluid extending around the gallbladder. CURRENT LABORATORY DATA: Sodium 144, potassium 3.5, chloride 103, BUN 36, creatinine 1.4, calcium 8.4. His INR is 1.8. We will give another dose of vitamin K and he is going to get some more fresh frozen. cc: Agustín Capone MD
[2017-01-18] MEDS: ZOSYN 3.375 GM/NS 3.375 GM/50 ML IVPB IV SCH ×4 (09:37→23:14)
[2017-01-18] MEDS: HUMALOG SUBQ SCH ×4 (09:43→21:11)
[2017-01-18 09:45] LABS: MODALITY VENTILATOR
[2017-01-18] MEDS: ROCEPHIN 1 GM/NS 1 GM/50 ML IVPB IV SCH (09:50)
[2017-01-18] MEDS: VANCOMYCIN 2,000 MG in NS 500 ML IV SCH (09:52)
[2017-01-18 09:55] LABS: INR 1.66
[2017-01-18] MEDS ORDERED: VITAMIN K 10 MG in NS 50 ML IV ONE (10:00)
[2017-01-18] MEDS: LASIX IV SCH ×2 (10:49→21:20)
[2017-01-18] MEDS: LANOXIN PO SCH (11:02)
[2017-01-18] MEDS: LOPRESSOR PO SCH ×2 (11:04→21:12)
[2017-01-18] MEDS ORDERED: DIPRIVAN 1% 500 MG/50 ML BOTTLE ONE (13:57)
[2017-01-18] MEDS ORDERED: FENTANYL ONE (13:57)
[2017-01-18] MEDS ORDERED: NS 1,000 ML ONE (14:10)
[2017-01-18 14:23] LABS: MANUAL DIFF NEEDED? NO
--- NOTE | 2017-01-18 14:28 | OPERATIVE NOTE ---
PROCEDURE DATE: 01/18/2017 PREOPERATIVE DIAGNOSES: 1. Acute cholecystitis. 2. Septic shock. 3. Multiorgan failure. 4. Liver failure. POSTOPERATIVE DIAGNOSES: 1. Acute cholecystitis. 2. Septic shock. 3. Multiorgan failure. 4. Liver failure. PROCEDURE: Open cholecystostomy. SURGEON: Giacomo Stover MD ANESTHESIA: General. DRY HEAT ROOM ATTENDANT: Oracio Rosa MD ESTIMATED BLOOD LOSS: 50 mL. COMPLICATIONS: None apparent. SPECIMENS: Bilious fluid for culture. FINDINGS: The gallbladder was inflamed and thickened, however, it did not have a typical acute inflammatory appearance. The omentum was not adherent to it. The bile was thick, but not grossly purulent. TECHNIQUE: He was brought to the operating room and placed supine on the table. General anesthesia was induced. He was prepped and draped in usual sterile fashion. An incision was made in the right upper quadrant with the knife and carried down through the subcutaneous tissues with cautery. The muscles were divided with cautery. The peritoneum was opened sharply and without injury to underlying structures. There was a large amount of ascites, this was suctioned as we worked. The gallbladder was visualized and palpated. It was thickened, but not necessarily acutely inflamed. We put a pursestring suture in the dome of the gallbladder with a 0 chromic and made a hole in the dome of the gallbladder and passed an 18-Romanian Malecot catheter into the gallbladder, this was brought out through a separate stab incision below our previous incision. It was anchored to the skin with 2-0 nylon. We then closed in layers with #1 Vicryl in the peritoneum and posterior fascia, and #1 Maxon on the anterior fascia. The skin was closed with skin clips. Dr. Rosa was present and helpful throughout the case with gaining exposure, suctioning out the bile in the gallbladder, and closing. cc: Giacomo Stover MD
[2017-01-18] MEDS ORDERED: D50W SYRINGE IV ONE (14:32)
[2017-01-18 14:36] LABS: INR 1.42; PROTIME 15.3 Seconds (9.2-11.7)
[2017-01-18 14:51] LABS: BASO% 0.4 % (0.0-0.8); EOS# 0.19 X1000 (0.0-0.7); EOS% 2.7 % (0.0-10.0); HEMATOCRIT 35.1 % (42.0-52.0); HEMOGLOBIN 10.8 g/dL (14.0-18.0); IMM GRAN# 0.03 X1000 (0.0-0.04); IMM GRAN% 0.4 % (0.0-0.5); LYMPH# 0.32 X1000 (1.2-3.4); LYMPH% 4.6 % (20.5-51.1); MCHC 30.8 g/dL (33-37); MCV 103.8 FL (81-99); MONO# 0.67 X1000 (0.11-0.59); MONO% 9.6 % (1.7-9.3); MPV 11.5 FL (7.4-10.4); NEUT% 82.3 % (42.2-75.2); PLT 69 X1000 (130-400); RBC 3.38 XMIL (4.7-6.1)
[2017-01-18 14:56] LABS: ALBUMIN 3.5 g/dL (3.5-5.0); CALCIUM 8.4 mg/dL (8.8-10.2); POTASSIUM 3.2 mmol/L (3.5-5.1); TOTAL BILIRUBIN 2.8 mg/dL (0.20-1.00); TOTAL PROTEIN 6.6 g/dL (6.3-8.3)
[2017-01-18] MEDS ORDERED: HEPARIN IV ONE (15:00)
--- NOTE | 2017-01-18 15:15 | PROGRESS NOTE ---
DATE: 01/18/2017 SUBJECTIVE: Mr. Powers is just back from cholecystostomy. Apparently, there was some thickened bile, but no purulence noted. In the interim from yesterday's visit, he has been intubated and started on low-dose pressors. PHYSICAL EXAMINATION: Vital signs: He is afebrile. His heart rates seem to be in the 90s to low 100s. Blood pressure 108/71. Generally: No acute distress. Cardiovascular: He sounds to be in a regular rate and rhythm. Mildly tachycardic. Somewhat distant heart sounds. Warm and well perfused lower extremities. Chest: Exam sounds clear bilaterally. He has no increased work of breathing. He is currently on the ventilator and sedated and breathing with the vent. Abdomen: Soft, nontender. Bowel sounds present. PERTINENT DATA: White count is 8.7, hematocrit 34.4, platelet count is 81,000. His sodium is 144, potassium 3.5, BUN 36, creatinine is 1.4. AST 1949, ALT is 1127. ASSESSMENT: 1. Sepsis. 2. Congestive heart failure. PLAN: Patient's volume status is difficult to determine. He does seem to be perfusing based on his lower extremities. He seems to be septic and seems to have stable renal function now. We will get Dr. Cummins involved. Echocardiogram looks consistent with his previous studies with his most recent previous study around a year ago. We will consider repetition of the echo in a limited scale with possible Definity contrast to get a better look at the apex. We may need to consider inotropes and we would like to rule out any sort of apical thrombus if possible. cc: Wilton Graff MD
[2017-01-18] MEDS ORDERED: POTASSIUM CHLORIDE 40 MEQ/SWI 40 MEQ/100 ML IVPB IV ONE (15:28)
--- NOTE | 2017-01-18 15:28 | ECHO REPORT ---
ORDER DATE: 01/18/2017 ECHOCARDIOGRAM: MEASUREMENTS: Left ventricular end-diastolic diameter 5.1, end systolic diameter 4.7, septal thickness 1.4, left atrium 5.6, aortic root 3.9 SUMMARY: 1. Technically difficult study due to limited acoustic window quality. 2. Aortic valve is trileaflet and opens normally. Mitral valve has been replaced with what appears to be a mechanical prosthesis. Peak gradient across mitral valve is 8 mmHg. Mitral regurgitation can't be appreciated. Mitral valve prosthesis appears to be functioning adequately. Tricuspid and pulmonic valves are without structural abnormality with moderate tricuspid regurgitation and trace pulmonic insufficiency. The estimated systolic PA pressure by Doppler is 50 mmHg. The aortic root is borderline enlarged. 3. Normal left ventricular chamber size with mild to moderate concentric left hypertrophy is suggested. Estimated left ventricular ejection fraction 25% in a setting of global hypokinesis. There is mild dyskinesis of the inferior base. The apex is not well visualized and on some views there is suggestion of possible apical echodensity that may potentially represent thrombus. Left atrium is moderate to severely enlarged. Right atrium and right ventricle are moderate to severely enlarged. The right ventricle and right atrium are mildly enlarged with mildly reduced right ventricular systolic function. Pacemaker lead is evident in the right ventricle. 4. No pericardial effusion. 5. Inferior vena cava is dilated which is nonspecific finding and patient on ventilator. CONCLUSIONS: 1. Technically difficult study. 2. Mechanical mitral valve prosthesis appears to be functioning adequately. 3. Moderate tricuspid regurgitation with moderate pulmonary hypertension by Doppler. 4. Mild to moderate concentric left hypertrophy with estimated left ventricular ejection fraction 25%. Consider global hypokinesis and mild dyskinesis of the inferior base. The apex not well visualized and cannot exclude apical thrombus. Consider use of echo contrast agent Definity. 5. Moderate to severe left atrial enlargement. 6. Borderline aortic root enlargement. 7. Mild right-sided chamber enlargement with mildly reduced right ventricular systolic function. cc: MD Wilton Elliott MD
[2017-01-18] MEDS: HEPARIN 25,000 UNITS/D5W 25,000 UNIT/250 ML IV.SOLN IV SCH (16:38)
--- NOTE | 2017-01-18 18:29 | CONSULTATION ---
DATE OF CONSULTATION: 01/18/2017 CONCLUSION: The patient is admitted the hospital in a septic condition. It was thought to be due to the gallbladder. His gallbladder was taken out today. Dr. Stover in his operative note said he had acute cholecystitis. A cholecystostomy tube was placed. In addition, the patient has 1 of 2 blood cultures growing a gram-positive coccus. This coccus could well be a strep and given the fact that the patient has a history of mitral valve replacement and therefore the bacteremia could likely indicate that the patient has endocarditis of the mitral valve. RECOMMENDATIONS: I agree with treating the patient with vancomycin and Zosyn. I do not think Rocephin is needed now because the patient is on 2 antibiotics that have very good activity against strep namely vancomycin and Zosyn. DISCUSSION: The patient is unable provide a history. No family member is present. According to the patient's chart he was admitted to the hospital with extreme weakness. He had an altered mental status. His blood glucose was low. CBC showed a white count of 7010, hemoglobin 10.8, and platelet count 69,000. Blood gases showed a pH of 7.43, a PO2 of 136, a pCO2 of 43. Creatinine is 1.3. GFR is 54. Liver function studies are normal except for the AST which was 15.25, the bilirubin was 2.8. Gallbladder aspirate culture is pending at this time. A Gram stain shows no bacteria. A sputum culture is negative thus far. One of 2 blood cultures are growing gram positive coccus. Chest x-ray shows no pneumonia. REVIEW OF SYSTEMS: I was unable to do review of systems. Patient has just returned from surgery where he had a cholecystostomy placed. PAST MEDICAL HISTORY: Positive for congestive heart failure, coronary artery disease, cardiac arrhythmias requiring a pacemaker/defibrillator, mitral valve disease requiring mitral valve replacement, hypertension, hyperlipidemia, diabetes mellitus, hypothyroidism, colorectal cancer. PAST SURGICAL HISTORY: Positive for coronary artery bypass grafting with stent placement for his coronary artery disease, placement of a pacemaker/defibrillator placed because of a presumed cardiac arrhythmia, he has had mitral valve replacement, he has had history of colon cancer for which he underwent resection of the cancer and formation of a colostomy. Patient also has had a carotid endarterectomy. SOCIAL HISTORY: He lives at home with his . The patient has a history of smoking although he quit 20 years ago. He occasionally drinks beer. His chart does not list any drug allergies. FAMILY HISTORY: Positive for hypertension, heart disease and stroke. ALLERGIES: Patient has no known allergies. HOME MEDICATIONS: Include potassium, Synthroid, Lasix, sotalol, digoxin, ferrous sulfate, spironolactone, Lopressor, glimepiride, Coumadin, Lipitor and [place]. PHYSICAL EXAMINATION: Vital Signs: Temperature is 97.4 degrees, pulse 103, respirations 20, blood pressure is 108/71. Generally: This is an ill-appearing elderly male who is in intubated and sedated. Head, eyes ears, nose, and throat: Orotracheal and oral gastric tubes are in place. No drainage noted from the nose or ears. Neck: No meningismus. Thorax: Increased AP diameter of the chest. Cardiovascular: Heart rate was regular and rapid. Abdomen: Slightly distended. It is soft. The patient's dressing is intact. A drain is present into the gallbladder. Neurologic: Patient is obtunded. There is no tremor. He did not respond to verbal stimuli. Thank you for the consult. cc: Sundeep Cummins MD
[2017-01-18] MEDS: LIPITOR PO SCH (21:12)
[2017-01-19] MEDS: HEPARIN 25,000 UNITS/D5W 25,000 UNIT/250 ML IV.SOLN IV SCH ×3 (00:08→16:47)
[2017-01-19] MEDS: DIPRIVAN 1% 1,000 MG/100 ML BOTTLE IV SCH ×3 (02:06→09:32)
[2017-01-19] MEDS: DUONEB (A & A) INH SCH ×6 (03:00→22:56)
[2017-01-19 04:35] LABS: HEMOGLOBIN 10.9 g/dL (14.0-18.0); MCH 32.2 PG (27-31); MCHC 31.1 g/dL (33-37); MCV 103.2 FL (81-99); MPV 11.5 FL (7.4-10.4); RBC 3.39 XMIL (4.7-6.1)
[2017-01-19 04:46] LABS: ALLEN TEST YES; BLOOD TYPE ARTERIAL; DRAW SITE R RADIAL; METHB 1.2 % (0.0-1.5); O2(CT) 17.1 mL/dL (15.0-23.0); PCO2(98.6) 45 mmHg (35-45); PO2(98.6) 105 mmHg (60-100); SAMPLE BLOOD; SAO2 98.9 % (95.0-100.0); SRATE 20 BPM; THB 12.6 g/dL (11.5-17.4); TVOL 500 mL; pH(98.6) 7.42 (7.35-7.45)
[2017-01-19 04:47] LABS: MODALITY VENTILATOR
[2017-01-19 04:53] LABS: ALBUMIN 3.2 g/dL (3.5-5.0); CALCIUM 8.4 mg/dL (8.8-10.2); POTASSIUM 4.2 mmol/L (3.5-5.1); TOTAL BILIRUBIN 3.21 mg/dL (0.20-1.00); TOTAL PROTEIN 6.1 g/dL (6.3-8.3)
[2017-01-19 04:59] LABS: INR 1.45; PROTIME 15.6 Seconds (9.2-11.7)
[2017-01-19] MEDS: PROTONIX IV SCH (05:00)
[2017-01-19] MEDS: ZOSYN 3.375 GM/NS 3.375 GM/50 ML IVPB IV SCH ×2 (05:07→10:19)
[2017-01-19] MEDS: HUMALOG SUBQ SCH ×4 (06:30→21:15)
[2017-01-19] MEDS: SYNTHROID PO SCH (06:31)
--- NOTE | 2017-01-19 07:22 | Diag Imaging Result Doc PS360 ---
EXAM: CHEST-PORTABLE - 01/19/2017 HISTORY: respiratory failure TECHNIQUE: Portable chest 0500 COMPARISON: 01/18/2017 FINDINGS: There is what appears to represent an endotracheal tube tip at about the level of the larynx. Central venous catheter remains in place. There is mild cardiomegaly. There is increased airspace disease of the bilateral bases. There is an apparent small right pleural effusion. There is no pneumothorax seen. IMPRESSION: Possible endotracheal tube tip visible at about the level of the larynx. If there is an endotracheal tube present, but this should be advanced about 9 cm for more optimal positioning. Some increase in basilar airspace disease. Apparent small right pleural effusion. Electronically signed by Andrew Arnold 01/19/2017 7:19 AM
--- NOTE | 2017-01-19 07:25 | Diag Imaging Result Doc PS360 ---
EXAM: CHEST-PORTABLE - 01/19/2017 HISTORY: ET tube placement. TECHNIQUE: Portable chest 0645 COMPARISON: 01/19/2017 at 0500 FINDINGS: The endotracheal tube is been advanced and is now located in satisfactory position about 5 cm above the jodi. There is been interval increase in airspace disease with apparent volume loss on the left, although the apparent volume loss may be exaggerated by patient rotation toward the left. IMPRESSION: Endotracheal tube in satisfactory position about 5 cm above the jodi. Increase in airspace disease with apparent volume loss on the left. Electronically signed by Andrew Arnold 01/19/2017 7:22 AM
[2017-01-19] MEDS: LASIX IV SCH ×2 (08:04→21:35)
[2017-01-19] MEDS: ROCEPHIN 1 GM/NS 1 GM/50 ML IVPB IV SCH (08:04)
[2017-01-19] MEDS: BETAPACE PO SCH ×2 (08:05→21:14)
[2017-01-19] MEDS: LOPRESSOR PO SCH ×2 (08:05→21:16)
[2017-01-19] MEDS ORDERED: HEPARIN 25,000 UNITS/D5W 25,000 UNIT/250 ML IV.SOLN IV SCH (08:15)
--- NOTE | 2017-01-19 09:12 | Diag Imaging Result Doc PS360 ---
EXAM: CHEST-1 VIEW - 01/19/2017 HISTORY: follow up fro 0640 TECHNIQUE: Portable chest 0900 COMPARISON: Earlier exam of same morning at 0645 FINDINGS: The endotracheal tube remains in satisfactory position. There is been apparent decrease in airspace disease with volume loss on the left compared to previous exam, although this may have been exaggerated by rotation the previous exam. There are no other interval changes identified. IMPRESSION: Improved aeration of left lung compared to prior. Electronically signed by Andrew Arnold 01/19/2017 9:09 AM
--- NOTE | 2017-01-19 09:23 | PROGRESS NOTE ---
DATE: 01/19/2017 SUBJECTIVE: The patient had some hypoxia this morning. A chest x-ray revealed that the tip of the ET tube was too high. It was changed out by respiratory therapy. Repeat chest x-ray shows better position of the tube. However, the left lung appears less aerated and he is on a higher oxygen requirement now with 100% FiO2. OBJECTIVE: Vital Signs: Overnight, he was afebrile. Vital signs are stable. He has a pulse of 73, O2 saturation 100%. Blood pressure 116/69. Urine output 585 mL over the last 8 hours. His cholecystostomy tube put out 100 mL. General: He is sedated. Appears comfortable on the ventilator. Respiratory: He does have coarse bilateral breath sounds. CV: He is tachycardic but appears regular. GI: Soft, nondistended. Hypoactive bowel sounds. Skin: Incisional dressing is dry and intact. Laboratory: White blood cell count 8000, hemoglobin 10.9, platelet count 73,000. INR 1.45. BUN 29, creatinine 1.2, potassium 4.2. Total bilirubin 3.2, AST 841, ALT 842. His biliary culture shows no growth and no bacteria on the Gram stain. He does have 1 blood culture showing Streptococcus mitis and Streptococcus oralis. ASSESSMENT/PLAN: A 76-year-old male with multiorgan failure, now status post cholecystostomy tube placement and streptococcal bacteremia versus contaminant. There was some concern for endocarditis. I will discuss with the network architect about this and Dr. Cummins with infectious disease. At this point, I do not think the biliary system is the major pathology. We will recheck a chest x-ray, as I think some positioning accounts for the worsened aeration appearance on the left. Hopefully, we can wean down his FiO2 today. His renal function appears stable. He remains on vancomycin, Zosyn, and Rocephin. cc: Giacomo Stover MD
[2017-01-19] MEDS ORDERED: ROCEPHIN 1 GM/NS 1 GM/50 ML IVPB IV ONE (09:30)
--- NOTE | 2017-01-19 09:53 | PROGRESS NOTE ---
DATE: 01/19/2017 SUBJECTIVE: Mr. Powers's x-ray showed poor variation of the left lung. I think that the endotracheal tube or bronchial tube was adjusted. I do your breath sounds over there on the left now. He remains afebrile. PHYSICAL EXAMINATION: Vital Signs: Temperature 98.1 degrees, pulse 117, respirations 20, blood pressure 109/74. Lungs: Clear, both right and left anterolateral. Cardiovascular Examination: Regular rhythm and rate without murmur or S3. Abdomen: Soft. Skin: Is warm and dry. LAB: White count 8220, hematocrit 35, platelet count 73,000. Sodium 142, potassium 4.2, chloride 103, bicarb 26, BUN 29, creatinine 1.2. Liver functions have come down nicely, 1525 to 841, and 1056 to 842. Chest x-ray done this morning, improved aeration of the lung compared to prior film. The endotracheal tube is in satisfactory position. ASSESSMENT AND PLAN: 1. Questionable cholecystitis, infection, fever. Dr. Stover has put a tube into the gallbladder and is draining. Liver functions seem to be coming down. Patient has 1 of 2 blood cultures growing gram-positive coccus. Coccus could well be a strep. Given the fact that the patient has a history of mitral valve, I do want to look at the valve. He is on vancomycin and Zosyn. Continue those at the present time. 2. Pulmonary edema, respiratory failure. Continue to try and diurese. He is on the ventilator. 3. Sepsis. Still appears that the most likely source is from the gallbladder. 4. Echocardiogram looks consistent with previous studies and his most recent study around a year ago. I think we are considering restudying it. Continue present orders. He is on Zosyn and vancomycin. He is on Betapace 80 mg twice a day. He has a history of atrial fibrillation. Lopressor 25 mg twice a day, Synthroid 100 mcg daily, digoxin 125 mcg, I think he was getting that by mouth. cc: Agustín Capone MD
[2017-01-19] MEDS: VANCOMYCIN 2,000 MG in NS 500 ML IV SCH (10:49)
--- NOTE | 2017-01-19 11:21 | ECHO REPORT ---
ORDER DATE: 01/18/2017 ADDENDUM: SUMMARY: Limited followup echocardiography with intravenous echocontrast agent performed with focus on left ventricle. Echocontrast agent used was intravenous Definity. FINDINGS: Estimated left ejection fraction of approximately 25% in the setting of global hypokinesis. There is also mild dyskinesis of the basal septum and basal inferior wall. There is akinesis of the mid to apical anteroseptal region. There is no evidence of left ventricular thrombus. CONCLUSIONS: Limited followup echocardiography with the use of intravenous echocontrast agent Definity performed demonstrating left ventricular ejection fraction of around 25% with global hypokinesis, mild dyskinesis of basal inferior wall, mild dyskinesis of the basal septum, and akinesis of mid to apical anteroseptal region. There is no evidence of left ventricular thrombus. cc: MD Wilton Elliott MD
[2017-01-19] MEDS ORDERED: DIPRIVAN 1% 1,000 MG/100 ML BOTTLE IV SCH (12:46)
[2017-01-19] MEDS: HALDOL IV PRN ×2 (13:23→21:37)
--- NOTE | 2017-01-19 14:03 | PROGRESS NOTE ---
DATE: 01/19/2017 SUBJECTIVE: Mr. Powers is off of sedation. Still does not follow commands. He is currently on a CPAP trial. He is off pressors. PHYSICAL EXAMINATION: Vital signs: He is afebrile. Heart rate is in the 70s to 110s. His systolic blood pressure is 109/74. General: He is in no acute distress. Cardiovascular: He sounds to be in a regular rate and rhythm. He has no obvious murmurs. He has 1+ lower extremity edema. Chest: Exam is clear bilaterally. He has a very poor inspiratory effort. Mechanical breath sounds are heard throughout. Abdomen: Soft, nontender, nondistended. He has no obvious organomegaly. Skin Exam: Warm and dry throughout. PERTINENT DATA: His echo was reviewed. Demonstrated an EF of around 25%. No evidence of clot, 4 chamber enlargement was noted. Device lead was noted as well. Mechanical mitral valve with no evidence of significant stenosis. White count is 8.2, his hematocrit is 35, platelet count is 73. His INR is 1.4. Sodium is 142, potassium is 4.2, BUN 29, creatinine 1.2. His AST and ALT are 841 and 842 respectively, which is down on both accounts from yesterday. ASSESSMENT: 1. Sepsis. 2. Systolic heart failure. PLAN: Patient had cultures drawn on the which demonstrated strep nidus in 1/2. There certainly could be a consideration for possible endocarditis. He will likely need a transesophageal echo in the future. Currently having [facility] come over and evaluate his defibrillator to determine the arrhythmia he had, which appears to be a wide complex tachycardia that appears fairly regular in nature. Further recommendations to follow. cc: Wilton Graff MD
[2017-01-19 14:37] LABS: ALLEN TEST YES; BE 4.6 mmoll (-3.0-3.0); BLOOD TYPE ARTERIAL; DRAW SITE R RADIAL; O2(CT) 16.1 mL/dL (15.0-23.0); PCO2(98.6) 46 mmHg (35-45); PO2(98.6) 114 mmHg (60-100); SAMPLE BLOOD; SAO2 99.3 % (95.0-100.0); THB 11.7 g/dL (11.5-17.4); pH(98.6) 7.42 (7.35-7.45)
[2017-01-19 14:38] LABS: MODALITY VENTILATOR
--- NOTE | 2017-01-19 19:03 | PROGRESS NOTE ---
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 I talked with Dr. Stover today and he felt that the gallbladder was not the source of the patient's presumed sepsis. RECOMMENDATIONS: I have put the patient on Rocephin 2 g IV every 12 hours. I plan to treat him for a 6 week treatment course. When it is considered safe to do, I would like to have a transesophageal echocardiogram done. Also another referral would be to an oral surgeon when the patient is stable and is out of the hospital to see if he thinks that the patient should have dental work done specifically removing his teeth. Finally I think the patient when he is discharged from the hospital should see a cardiac surgeon and the family would very much like him to see Dr. Yinka Ramsay at [facility] who apparently operated on the patient before. PHYSICAL EXAMINATION: Vital Signs: Temperature is 97.2 degrees, pulse 82, respirations 28, blood pressure 130/88. General: This is an obese, lethargic elderly male who is kind of thrashing around in bed. HEENT: I was unable to get a good look at the patient's oral cavity. He has been extubated today. Chest: The patient has a pacemaker defibrillator in place. Lungs: Clear to auscultation. Cardiovascular: Heart rate is regular. I did not hear a murmur. Abdomen: Soft and nontender. Patient has a colostomy in place. Neurologic: Patient is lethargic but he is thrashing around in bed also. The patient's said that she has sometimes noticed blood in the patient's anal area. We turned the patient on his side and looked and I did not see any bleeding area or tumor in perirectal area which has been sewn shut. LAB AND X-RAY STUDIES: The patient cultures thus far, 1 of 2 blood cultures is growing a strep mitis/strep oralis. The CBC today shows a white count of 8220, hemoglobin 10.9, and platelet count 73,000. The patient's creatinine today is 1.2 with a GFR of 59. The patient's blood gases show a pH of 7.42, a PO2 of 114 and a pCO2 of 46. A chest x-ray today shows there is a decrease in airspace disease with volume loss on the left compared to the previous exam. There is improved aeration of the left lung compared to prior film. ASSESSMENT AND PLAN: My plan is to go ahead and treat with Rocephin for 6 weeks. When the patient is deemed ready for it, I would like to have a transesophageal echocardiogram performed and then as mentioned above, when the patient leaves the hospital I want to refer him to an oral surgeon to see what if anything the surgeon thinks needs to be done to the patient's teeth and finally the patient I think should be seen by his cardiac surgeon namely Dr. Yinka Ramsay at [facility]. COMORBIDITIES: According to the patient's the patient had been having some sort of trouble with his teeth and this could well be where the patient's bacteremia originated from. Another thing to consider is that the patient only has 1 of 2 blood cultures positive for the Streptococcus organism. I think that this 1 blood culture that is positive is a true positive and not a contaminant especially in view of the fact that the patient has a prosthetic mitral valve in place. cc: Sundeep Cummins MD
[2017-01-19] MEDS: LIPITOR PO SCH (21:16)
[2017-01-19] MEDS: ROCEPHIN 2 GM/NS 2 GM/50 ML IVPB IV SCH (21:35)
[2017-01-19] MEDS: MORPHINE IV PRN ×2 (23:49→23:57)
[2017-01-19] MEDS: D5 NS 1,000 ML IV SCH (23:49)
[2017-01-20] MEDS: HEPARIN 25,000 UNITS/D5W 25,000 UNIT/250 ML IV.SOLN IV SCH ×3 (03:35→17:59)
[2017-01-20] MEDS: PROTONIX IV SCH (03:45)
[2017-01-20] MEDS: DUONEB (A & A) INH SCH ×6 (03:58→23:10)
[2017-01-20 04:30] LABS: ALLEN TEST YES; BE 4.4 mmoll (-3.0-3.0); BLOOD TYPE ARTERIAL; DRAW SITE R RADIAL; METHB 1.1 % (0.0-1.5); O2(CT) 16.7 mL/dL (15.0-23.0); PCO2(98.6) 47 mmHg (35-45); PO2(98.6) 155 mmHg (60-100); SAMPLE BLOOD; SAO2 99.8 % (95.0-100.0); pH(98.6) 7.41 (7.35-7.45)
[2017-01-20 04:31] LABS: MODALITY BI PAP
[2017-01-20 06:34] LABS: HEMATOCRIT 37.3 % (42.0-52.0); HEMOGLOBIN 11.3 g/dL (14.0-18.0); INR 1.41; MCH 31.5 PG (27-31); MCHC 30.3 g/dL (33-37); MCV 103.9 FL (81-99); MPV 11.7 FL (7.4-10.4); PROTIME 15.1 Seconds (9.2-11.7); RBC 3.59 XMIL (4.7-6.1)
[2017-01-20 06:48] LABS: ALBUMIN 3.5 g/dL (3.5-5.0); CALCIUM 8.9 mg/dL (8.8-10.2); POTASSIUM 3.9 mmol/L (3.5-5.1); TOTAL BILIRUBIN 2.44 mg/dL (0.20-1.00); TOTAL PROTEIN 6.7 g/dL (6.3-8.3)
--- NOTE | 2017-01-20 07:27 | PROGRESS NOTE ---
DATE: 01/19/2017 SUBJECTIVE: The patient has been extubated. He is somewhat confused and not able to really answer questions well this morning. OBJECTIVE: Vital Signs: Temperature 98 degrees, pulse 104, O2 saturation 98%, respirations 21, blood pressure 189/111. Urine output 1995. Cholecystostomy tube 100 mL. General: He is arousable, somewhat agitated. He does follow a few commands and knows his name but, otherwise, is confused. CV: Tachycardic and regular. Respiratory: Bilateral breath sounds. No work of breathing. No rales appreciated. GI: Soft, nontender, nondistended. Hypoactive bowel sounds. The right upper quadrant incision is intact. There is some minor bloody ooze. LABORATORY: White blood cell count 14,000. Hemoglobin 11.3, platelet count 104,000. INR 1.4. pH 7.4, pCO2 of 47, PaO2 of 155, bicarb 28, base excess 4 on 50% FiO2 and BiPAP. Sodium 148, potassium 3.9, chloride 108, CO2 of 26. BUN 30, creatinine 1.3, glucose 139. Total bilirubin 2.4, AST 353, ALT 654. Microbiology: I reviewed his cultures again. He has one out of two blood cultures positive for Streptococcus oralis. His sputum culture is negative. The drainage from the gallbladder is negative. ASSESSMENT AND PLAN: A 76-year-old male status post cholecystostomy tube for possible acute cholecystitis; however, it seems more likely that he has endocarditis. DAWSON is planned, as well as a thorough oral evaluation by an oral surgeon and future referral to Dr. Grigsby at [facility] for his valve. He is to continue on a heparin drip for now. I will leave the anticoagulation decision to Cardiology as far as converting him to any oral medicines. We can start a clear liquid diet today and see how he tolerates it. His liver function tests are improving. The cholecystostomy tube needs to remain intact for 6 weeks prior to removal. cc: Giacomo Stover MD
[2017-01-20] MEDS: HUMALOG SUBQ SCH ×4 (07:37→21:06)
--- NOTE | 2017-01-20 07:37 | Diag Imaging Result Doc PS360 ---
CHEST-PORTABLE - 01/20/2017 INDICATION: respiratory failure TECHNIQUE: COMPARISON: 01/19/2017 FINDINGS: Endotracheal tube is no longer present. Stable right central line. Stable significant cardiomegaly. Stable pulmonary vascular congestion and mild interstitial pulmonary edema. No large effusions. IMPRESSION: Endotracheal tube removed. Otherwise no change from prior. Electronically signed by Willi Jackson 01/20/2017 7:35 AM
[2017-01-20] MEDS ORDERED: SODIUM CHLORIDE 0.9% INJ PRN (09:01)
[2017-01-20] MEDS ORDERED: APRESOLINE IV PRN (09:03)
--- NOTE | 2017-01-20 09:08 | PROGRESS NOTE ---
DATE: 01/20/2017 SUBJECTIVE: Mr. Powers required restraints. He is awake. He is less confused. He does answer questions. He appears to be breathing much more comfortably. PHYSICAL EXAMINATION: Vital Signs: Temperature 98 degrees, pulse 99, respirations 18, blood pressure 166/108. HEENT: Pupils are equal and round. Lungs: Are clear in all lung newell. Cardiovascular Examination: Regular rhythm and rate without murmur or S3. Abdomen: Soft. Skin: Is warm and dry. Is and Os: Urine output was a little over 3 L. LABORATORY DATA: Blood sugar 195 and 140. ASSESSMENT AND PLAN: 1. A 76-year-old status post cholecystostomy tube for possible acute cholecystitis. It seems more likely that he may have infection from something else. His mitral valve appears to be functioning well. This very well could be an infection from his mouth as well as he has poor dentition. A DAWSON I think is planned at some point and also evaluation by an oral surgeon. At the present time, we will continue his antibiotics. He seems to be improving. He is getting drainage from around the cholecystostomy tube. He is extubated and breathing better. Seems to be diuresing. 2. 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 We will hope to get evaluation of the valve at some point. 3. Renal function seems to be good. Creatinine 1.3. Electrolytes look good. 4. Diabetes mellitus. Blood sugar is doing well. 5. Continue present antibiotics. He is on ceftriaxone 2 g intravenous every 12 hours. Getting Betapace 80 mg by mouth twice a day, Synthroid 100 mcg by mouth daily, Lopressor 25 mg twice a day, Lasix 40 mg intravenous every 12 hours continued, and he is on a heparin drip with his PTT in the 90s. cc: Agustín Capone MD
[2017-01-20] MEDS: BETAPACE PO SCH ×2 (10:20→21:53)
[2017-01-20] MEDS: LASIX IV SCH ×2 (10:20→21:53)
[2017-01-20] MEDS: ROCEPHIN 2 GM/NS 2 GM/50 ML IVPB IV SCH (10:20)
[2017-01-20] MEDS: LOPRESSOR PO SCH ×2 (10:21→21:53)
[2017-01-20] MEDS: MORPHINE IV PRN ×3 (10:30→18:29)
[2017-01-20] MEDS: SODIUM CHLORIDE 0.9% INJ PRN (11:14)
[2017-01-20] MEDS: SYNTHROID IV SCH (11:14)
--- NOTE | 2017-01-20 12:41 | PROGRESS NOTE ---
DATE: 01/20/2017 SUBJECTIVE: Mr. Powers has been extubated in the interim. He seems to be doing quite well. Presently, he is not having any complaints. He is somewhat confused. He is able to answer some questions intermittently. Presently, he has soft restraints on his bilateral upper extremities. PHYSICAL EXAMINATION: Vital Signs: Significant for the patient being afebrile. His heart rates have been in the 70s to the 90s predominantly. His systolic blood pressures appear to be predominantly elevated in the 140s to 170s. His I's and O's for the course of the hospitalization are positive around 5.9 L. General: He is in no acute distress. Cardiovascular: He sounds to be in a regular rate and rhythm and presently, he has no murmurs. He has trace lower extremity edema. Chest: Has some mild coarseness bilaterally. No increased work of breathing. Abdomen: Soft, nontender, nondistended. He has no obvious organomegaly. Skin Exam: Warm and dry throughout. PERTINENT DATA: His white count is 14.2, his hematocrit is 37. His platelet count is 104. Sodium is 148, potassium 3.9, his BUN is 30 with a creatinine 1.3. ASSESSMENT: 1. Systolic heart failure. 2. Mechanical mitral valve. 3. Strep mitis/strep oralis bacteremia. PLAN: Patient will eventually need transesophageal echo to evaluate his mitral valve. I would presently recommend treating him as if this was endocarditis. Presently, he has been having issues with nonsustained VT as demonstrated on his device evaluation. The last episode of this appears to have been 01/19 at 11:37. Presently, we are unable to intervene with amiodarone considering his recent issues with liver dysfunction. The sotalol does not seem to be effective presently in that regards. I would continue on the furosemide at a dose of 40 mg IV q.12. cc: Wilton Graff MD
[2017-01-20] MEDS: HALDOL IV PRN (17:07)
[2017-01-20 17:21] LABS: HEMATOCRIT 37.4 % (42.0-52.0); HEMOGLOBIN 11.3 g/dL (14.0-18.0); MCH 32.1 PG (27-31); MCHC 30.2 g/dL (33-37); MCV 106.3 FL (81-99); MPV 10.8 FL (7.4-10.4); RBC 3.52 XMIL (4.7-6.1)
[2017-01-20] MEDS ORDERED: MERREM 500 MG in NS 50 ML IV SCH (18:15)
[2017-01-20] MEDS ORDERED: VANCOMYCIN IV PER PHARMACY MISC SCH (18:15)
--- NOTE | 2017-01-20 18:37 | PROGRESS NOTE ---
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 Today, the patient has developed a leukocytosis with a white count of 17,890. MEDICATIONS: The patient currently is on Rocephin. PHYSICAL EXAMINATION: Vital Signs: Temperature is 97.5, pulse 102, respirations 24, blood pressure 149/116. General: This patient looks actually better than he had been. He is more awake. He does not thrash around in bed. Lungs: Clear to auscultation. Cardiovascular: Regular heart rate. Abdomen: Soft and nontender. Chest: The patient has a pacemaker and defibrillator in place on the left side. The site is not erythematous or swollen. Abdomen: Soft and nontender. The patient has a functioning colostomy in place. LAB AND X-RAY: Chest x-ray shows pulmonary edema. The patient's CBC shows a white count of 17,890, hemoglobin 11.3, and platelet count 118,000. Blood gases show a pH of 7.41, a pO2 of 155, a pCO2 of 47, creatinine is 1.3. GFR is 54. ALT is 634. ASSESSMENT AND PLAN: As mentioned above, I think the patient has prosthetic valve endocarditis. In addition, he has leukocytosis, the exact etiology of which is uncertain to me. I plan to go ahead and get blood and urine cultures and discontinue Rocephin and start the patient on a combination of vancomycin and meropenem pending culture results. COMORBIDITIES: Include he is elderly. He has congestive heart failure, coronary artery disease, and cardiac arrhythmias and previously has had mitral valve replacement. Patient also is a diabetic. cc: Sundeep Cummins MD
[2017-01-20 18:44] LABS: URINE SOURCE CATH
[2017-01-20 18:49] LABS: BILIRUBIN URINE NEGATIVE (NEGATIVE); BLOOD URINE MODERATE (NEGATIVE); COLOR YELLOW; GLUCOSE URINE 70 mg/dL (NEGATIVE); LEUKOCYTES URINE NEGATIVE (NEGATIVE); NITRITE URINE NEGATIVE (NEGATIVE); PH URINE 5.5; PROTEIN URINE 50 mg/dL (NEGATIVE); SP GRAVITY URINE 1.019; TURBIDITY URINE CLEAR (CLEAR); UROBILINOGEN URINE NORMAL (NORMAL)
[2017-01-20 18:50] LABS: URINE MICRO REVIEW NEEDED? YES
[2017-01-20 18:55] LABS: UR EPITHELIAL CELLS <10 /HPF (<10); URINE BACTERIA NEGATIVE /HPF; URINE RBC TNTC /HPF (<10); URINE WBC <10 /HPF (<10)
[2017-01-20 19:25] LABS: URINE CASTS NONE SEEN
[2017-01-20] MEDS: MERREM 1 GM in NS 50 ML IV SCH (19:57)
[2017-01-20] MEDS: VANCOMYCIN 2,000 MG in NS 500 ML IV SCH (19:59)
[2017-01-20] MEDS: LIPITOR PO SCH (21:53)
[2017-01-21] MEDS: MERREM 1 GM in NS 50 ML IV SCH ×3 (01:25→17:53)
[2017-01-21] MEDS: DUONEB (A & A) INH SCH ×6 (03:04→22:53)
[2017-01-21] MEDS: PROTONIX IV SCH (04:58)
[2017-01-21] MEDS: MORPHINE IV PRN ×2 (04:58→22:35)
[2017-01-21] MEDS: SODIUM CHLORIDE 0.9% INJ SCH (04:58)
[2017-01-21] MEDS: D5 NS 1,000 ML IV SCH (04:59)
[2017-01-21 05:46] LABS: INR 1.75
[2017-01-21 05:54] LABS: HEMATOCRIT 34.7 % (42.0-52.0); HEMOGLOBIN 10.4 g/dL (14.0-18.0); MCH 32.3 PG (27-31); MCV 107.8 FL (81-99); MPV 11.1 FL (7.4-10.4); RBC 3.22 XMIL (4.7-6.1)
[2017-01-21 06:05] LABS: AGAP 7; ALBUMIN 3.4 g/dL (3.5-5.0); ALKALINE PHOSPHATASE 59 U/L (32-122); BUN 30 mg/dL (8-22); CALCIUM 8.8 mg/dL (8.8-10.2); CHLORIDE 110 mmol/L (98-107); COSMO 305; GOT 161 U/L (10-34); GPT 436 U/L (10-44); POTASSIUM 3.9 mmol/L (3.5-5.1); SODIUM 150 mmol/L (136-145); TCO2 33 mmol/L (25-35); TOTAL PROTEIN 6.2 g/dL (6.3-8.3)
[2017-01-21] MEDS: HUMALOG SUBQ SCH ×4 (06:31→20:21)
--- NOTE | 2017-01-21 06:32 | PROGRESS NOTE ---
DATE: 01/21/2017 SUBJECTIVE: The patient remains extubated. He is off pressors. He is somewhat confused but no major issues. He is on a heparin drip and does have some bleeding around his central line and around his right subcostal incision. OBJECTIVE: Vital Signs: Patient is currently afebrile. His vital signs have been stable. I reviewed the ins and outs of his Laws catheter and his cholecystostomy tube. General Examination: Arousable but somewhat confused. Cardiovascular: Regular rate and rhythm. Lungs: Some coarse sounds bilaterally. Abdomen: Protuberant but soft. Dressing in place in the right upper quadrant. There is some mild bleeding noted at the incision. Cholecystostomy tube in place, draining bile. Laboratory: His white blood cell count from this morning is 12 which is down from 17, hematocrit is 34 which is slightly down from 37, his platelet count is 90,000. His INR is 1.75. ASSESSMENT/PLAN: A 76-year-old, male, status post cholecystostomy tube, now with likely possible endocarditis. 1. Cholecystostomy tube. At this time, continue drainage as we are doing. Would like to keep the tube intact for at least 6 weeks. We will monitor his incision for bleeding. 2. Endocarditis. Patient does have a mechanical heart valve. He is on a heparin drip. He has future referrals to [facility] for evaluation. He also has the potential for a transesophageal echocardiogram to be done here soon. I will defer that to cardiology. 3. Multiple medical comorbidities, currently being managed by the hospitalist service. cc: Abram Regalado MD
[2017-01-21] MEDS ORDERED: SYNTHROID IV SCH (07:00)
--- NOTE | 2017-01-21 07:19 | Diag Imaging Result Doc PS360 ---
EXAM: CHEST-PORTABLE INDICATION: respiratory failure TECHNIQUE: One view COMPARISON: 01/20/2017 FINDINGS: Right central line is in stable position. Interstitial edema is unchanged. Increased central vasculature is stable as well. No definite new consolidations are appreciated. There is stable cardiomegaly. IMPRESSION: Essentially stable chest. Electronically signed by Zachary Blanchard 01/21/2017 7:17 AM
[2017-01-21] MEDS: BETAPACE PO SCH ×2 (08:38→20:13)
[2017-01-21] MEDS: SYNTHROID IV SCH (08:38)
[2017-01-21] MEDS: SODIUM CHLORIDE 0.9% INJ PRN (08:38)
[2017-01-21] MEDS: LASIX IV SCH ×2 (08:38→20:12)
[2017-01-21] MEDS: LANOXIN PO SCH (08:38)
[2017-01-21] MEDS: LOPRESSOR PO SCH ×2 (08:39→20:13)
--- NOTE | 2017-01-21 09:29 | PROGRESS NOTE ---
DATE: 01/21/2017 SUBJECTIVE: Mr. Powers is awake. He still has quite a bit of confusion. Still a lot of drainage from his cholecystostomy tube. He is getting down some liquids. We are going to try to advance him to full liquid. Still contemplating when we can try and do an esophageal echo to look at the mitral valve. He has remained afebrile. And his urine output was over 4 L. PHYSICAL EXAMINATION: Vital Signs: Temperature 97.3 degrees, pulse 85, respirations 16, blood pressure 119/76. Lungs: Clear in all lung newell. Cardiovascular: Regular rate without murmur or S3. Abdomen: Soft. Skin: Warm and dry. LABORATORY DATA: Blood sugar 140, 130, 122. White count 12,660, hematocrit 34, platelet count 90,000, sodium 150, potassium 3.9, chloride 110, bicarb 33, BUN 30, creatinine 1.1, blood sugar 118, 124, 122. Liver functions are improving. AST down from 353 to 161, ALT 634 down to 436. ASSESSMENT AND PLAN: 1. Cholecystostomy tube. Continues to drain liberally. Keep the tube intact for at least 6 weeks. 2. Questionable endocarditis. No evidence of this. He does have a mechanical valve and will need esophageal echo at some point. Very likely this infection could have come from his mouth as well. 3. Multiple medical comorbidities. 4. Respiratory failure. He was weaned off the vent. Breathing is doing better. His volume status is improving. 5. 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 Of course, we have not documented that but will treat them as if it is endocarditis. White count was 17,000. Currently on Rocephin. 6. Diabetes mellitus type 2. Continue to follow sugar. 7. Try to get him range of motion with physical therapy. Full liquid diet. He is on vancomycin 2 g IV q.24 hours. He is on meropenem 1 g q.8 hours. Patient on Lasix 40 mg IV q.12 hours still. cc: Agustín Capone MD
[2017-01-21] MEDS: HEPARIN 25,000 UNITS/D5W 25,000 UNIT/250 ML IV.SOLN IV SCH (09:54)
--- NOTE | 2017-01-21 12:21 | Diag Imaging Result Doc PS360 ---
EXAM: US ABDOMEN-COMPLETE INDICATION: GB disease COMPARISON: Gallbladder ultrasound dated 01/17/2017 FINDINGS: This study is very limited due to body habitus and condition of the patient. The gallbladder is not identified. The common bile duct is not identified. The left hepatic lobe is obscured. The visualized portion of the liver is stable as compared to the recent previous study. The pancreas is obscured. The aorta is obscured. Limited views of the IVC are grossly unremarkable. The spleen is obscured. The kidneys are obscured. IMPRESSION: Extremely limited study for the reasons discussed above making it essentially nondiagnostic. The limited images of the liver and IVC are grossly unremarkable. The remaining viscera are obscured. Electronically signed by Zachary Blanchard 01/21/2017 12:18 PM
--- NOTE | 2017-01-21 12:34 | PROGRESS NOTE ---
DATE: 01/21/2017 SUBJECTIVE: Mr. Powers continues to be confused today. He seems to localize to voice as well as physical stimuli but he does not follow consist commands. PHYSICAL EXAMINATION: Vital signs: He is afebrile. Heart rates in the 70s to 80s. His blood pressure is 128/78. General: He is in no acute distress. He is lying in bed. Nasal cannula in place. Cardiovascular: He is in what appears to be a regular rate and rhythm. No obvious murmurs. He has a mechanical S1. No lower extremity edema. Chest: Sounds clear bilaterally. Poor inspiratory effort. Abdomen: Soft, nontender. PERTINENT DATA: White count 12.6, hematocrit 34.7. His platelet count is 90,000. His sodium is 150, potassium 3.9. His BUN is 30, creatinine is 1.1. His albumin is 2.4 which is roughly stable from yesterday. His AST and ALT are down to 161 and 436 respectively. ASSESSMENT: 1. Possible endocarditis. 2. Possible cholecystitis. 3. Mechanical mitral valve as well as chronic systolic heart failure. PLAN: I would continue with current course. The patient continues on antibiotics. He is too high risk for transesophageal echo right now as I believe that would likely cause respiratory compromise resulting in the patient potentially having high chance for being put on the ventilator. He continues on IV Lasix. His I's and O's are markedly positive during this hospitalization at 5.4 L. He seems hemodynamically stable presently. cc: Wilton Graff MD
--- NOTE | 2017-01-21 19:43 | PROGRESS NOTE ---
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 Yesterday he had a marked leukocytosis. MEDICATIONS: The patient was on Rocephin yesterday. I discontinued Rocephin and put the patient on a combination of vancomycin and meropenem. PHYSICAL EXAMINATION: Vital Signs: Temperature is 97.8 degrees, pulse 76, respirations 15, blood pressure 140/78. Generally: This is an ill-appearing obese elderly male. He seems somewhat confused, but he is extubated and is breathing on his own. Cardiovascular: Regular heart rate. Lungs: Bilateral rhonchi. Abdomen: Soft. A colostomy is present and in the right side there is a cholecystoscopy tube in place. LAB AND X-RAY: Chest x-ray shows cardiomegaly and pulmonary venous congestion. Vancomycin level is 18.5 and glucose is 170. ASSESSMENT AND PLAN: 1. I still think the patient has streptococcal prosthetic valve endocarditis. Also he had a leukocytosis. For now I am going to continue with vancomycin and meropenem pending more results. I read Dr. Graff's note about a transesophageal echocardiogram, and hopefully the patient will be well enough that we can proceed with a transesophageal echocardiogram. 2. Comorbidities include he is elderly, he has congestive heart failure, coronary artery disease, cardiac arrhythmias, and mitral valve replacement. The patient also has diabetes. cc: Sundeep Cummins MD [facility]
[2017-01-21] MEDS: LIPITOR PO SCH (20:12)
[2017-01-21] MEDS: VANCOMYCIN 2,000 MG in NS 500 ML IV SCH (20:12)
[2017-01-22] MEDS: MERREM 1 GM in NS 50 ML IV SCH ×3 (01:32→17:49)
[2017-01-22] MEDS: D5 NS 1,000 ML IV SCH ×2 (01:33→05:11)
[2017-01-22] MEDS: HEPARIN 25,000 UNITS/D5W 25,000 UNIT/250 ML IV.SOLN IV SCH ×2 (01:35→15:12)
[2017-01-22] MEDS: DUONEB (A & A) INH SCH ×6 (03:00→22:52)
[2017-01-22] MEDS: PROTONIX IV SCH (05:11)
[2017-01-22] MEDS: SODIUM CHLORIDE 0.9% INJ SCH (05:11)
[2017-01-22 05:51] LABS: HEMATOCRIT 33.6 % (42.0-52.0); MCH 32.2 PG (27-31); MCHC 29.8 g/dL (33-37); MPV 10.8 FL (7.4-10.4); RBC 3.11 XMIL (4.7-6.1)
[2017-01-22] MEDS: SODIUM CHLORIDE 0.9% INJ PRN (06:05)
[2017-01-22] MEDS: SYNTHROID IV SCH (06:05)
[2017-01-22 06:07] LABS: INR 1.81; PROTIME 19.7 Seconds (9.2-11.7)
[2017-01-22 06:13] LABS: AGAP 7; ALBUMIN 3.2 g/dL (3.5-5.0); ALKALINE PHOSPHATASE 62 U/L (32-122); BUN 27 mg/dL (8-22); CALCIUM 8.5 mg/dL (8.8-10.2); CHLORIDE 108 mmol/L (98-107); COSMO 304; GOT 94 U/L (10-34); GPT 317 U/L (10-44); POTASSIUM 3.7 mmol/L (3.5-5.1); SODIUM 149 mmol/L (136-145); TCO2 34 mmol/L (25-35); TOTAL BILIRUBIN 2.76 mg/dL (0.20-1.00); TOTAL PROTEIN 5.9 g/dL (6.3-8.3)
[2017-01-22] MEDS: HUMALOG SUBQ SCH ×4 (06:30→20:26)
--- NOTE | 2017-01-22 06:44 | PROGRESS NOTE ---
DATE: 01/22/2017 SUBJECTIVE: The patient remains extubated. He is off pressors. He is somewhat confused but no major issues. The bleeding around his incision has seemed to stop at this point. OBJECTIVE: Vital Signs: Patient is currently afebrile. His vital signs are stable. We will review the in's and out's of his Laws catheter and his cholecystostomy tube. General: Arousable but confused. Cardiovascular: Regular rate and rhythm. Lungs: Some coarse sounds bilaterally. Abdomen: Protuberant but soft. Dressing in place. No active bleeding. Cholecystostomy tube draining bile. LABORATORY: White blood cell count is 12 which is essentially stable. Hematocrit 33. Platelet count 105,000. Ultrasound from yesterday reviewed. ASSESSMENT/PLAN: A 76-year-old male status post cholecystostomy tube now likely with possible endocarditis. 1. Cholecystostomy tube. At this time, continue to drain the bile. We will keep the cholecystostomy tube in place for 6 weeks. 2. Endocarditis. At this time, patient does have a mechanical heart valve. He is on a heparin drip. They are waiting for him to be more stable for transesophageal echocardiogram. We will continue to follow. 3. Multiple medical comorbidities currently being managed by the hospitalist service. cc: Abram Regalado MD
--- NOTE | 2017-01-22 07:11 | Diag Imaging Result Doc PS360 ---
CHEST-PORTABLE - 01/22/2017 INDICATION: respiratory failure TECHNIQUE: COMPARISON: 01/21/2017 FINDINGS: Stable pacemaker. Stable cardiomegaly and pulmonary vascular congestion. Stable right central line. There is probably trace improvement in right lower lobe atelectasis. No new infiltrates. IMPRESSION: Little change from prior. Electronically signed by Willi Jackson 01/22/2017 7:09 AM
[2017-01-22] MEDS: BETAPACE PO SCH ×2 (09:10→20:25)
[2017-01-22] MEDS: LASIX IV SCH ×2 (09:10→20:25)
[2017-01-22] MEDS: LOPRESSOR PO SCH ×2 (09:10→20:25)
--- NOTE | 2017-01-22 10:01 | PROGRESS NOTE ---
DATE: 01/22/2017 SUBJECTIVE: Mr. Powers is awake, more alert. His voice is feeling stronger. Able to get a little bit of food down by mouth yesterday. OBJECTIVE: Vital Signs: Temperature 97.8, pulse 108, respirations 19, blood pressure 110/63. Eyes: Pupils are equal, round. Lungs: Are clear in all lung newell. Cardiovascular: Regular rhythm and rate without murmur or S3. Abdomen: Soft. Skin: Warm and dry. LABS: Urine output was 2300 mL. Blood sugars running in the 130s. Blood work this morning: White count 12,430, hematocrit 33. Platelet count 105,000. Sodium 149, potassium 3.7, chloride 108, BUN 27, creatinine 0.9. Blood sugars 124, 122, 126, 156. Chest x-ray from this morning, little change from prior. Stable pacemaker. Stable cardiomegaly, pulmonary vascular congestion. Stable right central line. Probably trace improvement in the right lower lobe atelectasis. ASSESSMENT AND PLAN: 1. Cholecystostomy tube. At this time continued to drain bile. Keep the cholecystostomy tube in place for 6 weeks. 2. Questionable endocarditis. Possibility of possible infection from his mouth. At some point went to look at his mechanical valve with a transesophageal echo. At this point, continue antibiotics empirically. 3. Multiple medical comorbidities. In addition, is off the ventilator. Respiratory status is better. He had some pulmonary venous hypertension. 4. He presented with sepsis and that is improved. Blood pressures improved. Nutrition. Encourage p.o. intake and try and increase his activity. Do range of motion with physical therapy. 5. Diabetes mellitus type 2. Continue to follow sugars. Review of orders: I do not see anything else. I do not see anything to change at this point. He is on sotalol 80 mg b.i.d., vancomycin 2 g daily, Protonix 40 mg IV q.24 hours, Lopressor 25 mg a day. Meropenem 1 g q.8 hours. Synthroid 50 mcg a day. Lanoxin 125 mg, I think he gets that Mondays and . He is on heparin drip. He gets hydralazine 10 mg IV q.6 hours p.r.n., Lasix 40 mg IV q.12. cc: Agustín Capone MD
[2017-01-22] MEDS: HALDOL IV PRN (11:39)
[2017-01-22] MEDS: MORPHINE IV PRN ×2 (13:10→20:25)
[2017-01-22] MEDS ORDERED: LASIX IV ONE (14:23)
--- NOTE | 2017-01-22 14:44 | PROGRESS NOTE ---
DATE: 01/22/2017 SUBJECTIVE: Mr. Powers is somewhat confused today. He had to be put back on BiPAP secondary to this confusion level. OBJECTIVE: Vital Signs: He is afebrile. His heart rates were in the low 100s-110s. His blood pressure has been predominantly in the 110s to 140s. His I's and O's over the last couple of days appear to be positive around 500 mL; for the course of the hospitalization they are positive around 6.3 L. General: Generally, no acute distress. Cardiovascular: He sounds to be in a regular rate and rhythm. Presently no murmurs. He has trace to 1+ bilateral lower extremity edema and warm and well perfused lower extremities. Chest: His chest examination has coarse bilateral breath sounds. The patient is not cooperative with the exam. Abdomen: Soft, nontender. PERTINENT DATA: White count 12.4, hematocrit is 33, platelet count is 105. His INR is 1.8. His sodium is 149, potassium 3.7, his BUN is 27, creatinine 0.9. His albumin level is 3.2. ASSESSMENT: Confusion with hypoxia. PLAN: I will give him a dose of IV Lasix today at 80 mg. his chest x-ray does appear to be wet. His fluid balance is significantly positive. We will continue to follow. I believe the family is over stimulating the patient as well. We have discussed about letting the patient sleep if he is asleep. cc: Wilton Graff MD
[2017-01-22] MEDS: LIPITOR PO SCH (20:25)
[2017-01-22] MEDS: VANCOMYCIN 2,000 MG in NS 500 ML IV SCH (21:41)
[2017-01-23] MEDS: DUONEB (A & A) INH SCH ×6 (03:14→23:05)
[2017-01-23] MEDS: MERREM 1 GM in NS 50 ML IV SCH ×3 (03:36→17:17)
[2017-01-23] MEDS: PROTONIX IV SCH (05:54)
[2017-01-23] MEDS: SODIUM CHLORIDE 0.9% INJ SCH (05:54)
--- NOTE | 2017-01-23 06:14 | Diag Imaging Result Doc PS360 ---
EXAM: CHEST-PORTABLE HISTORY: respiratory failure TECHNIQUE: Portable AP COMPARISON: 01/22/2017 FINDINGS: No change in the right jugular line or left-sided pacemaker. Sternal wires are present and the heart is enlarged. Patient is rotated to the right on the current exam. No consolidation. No pleural effusions identified. Minimal increased interstitial markings similar to the prior exam. IMPRESSION: Stable chest. Electronically signed by Tanner Clayton 01/23/2017 6:11 AM
[2017-01-23 06:33] LABS: HEMATOCRIT 31.6 % (42.0-52.0); HEMOGLOBIN 9.2 g/dL (14.0-18.0); MCH 31.5 PG (27-31); MCHC 29.1 g/dL (33-37); MCV 108.2 FL (81-99); MPV 10.8 FL (7.4-10.4); RBC 2.92 XMIL (4.7-6.1)
[2017-01-23] MEDS: SYNTHROID IV SCH (06:35)
[2017-01-23] MEDS: HEPARIN 25,000 UNITS/D5W 25,000 UNIT/250 ML IV.SOLN IV SCH (06:36)
[2017-01-23] MEDS: SODIUM CHLORIDE 0.9% INJ PRN (06:36)
[2017-01-23 06:40] LABS: AGAP 8; ALBUMIN 3.1 g/dL (3.5-5.0); ALKALINE PHOSPHATASE 66 U/L (32-122); BUN 21 mg/dL (8-22); CALCIUM 8.4 mg/dL (8.8-10.2); CHLORIDE 106 mmol/L (98-107); COSMO 304; GOT 59 U/L (10-34); GPT 225 U/L (10-44); POTASSIUM 3.6 mmol/L (3.5-5.1); SODIUM 151 mmol/L (136-145); TCO2 37 mmol/L (25-35); TOTAL BILIRUBIN 3.57 mg/dL (0.20-1.00); TOTAL PROTEIN 5.8 g/dL (6.3-8.3)
[2017-01-23 06:54] LABS: INR 1.67; PROTIME 18.1 Seconds (9.2-11.7)
[2017-01-23] MEDS: HUMALOG SUBQ SCH ×4 (07:25→21:34)
--- NOTE | 2017-01-23 08:12 | PROGRESS NOTE ---
DATE: 01/23/2017 SUBJECTIVE: No major issues. He was transferred from ICU 11 to ICU 8. OBJECTIVE: Vital Signs: Patient is currently afebrile. His vital signs have been stable. General: No acute distress but confused. Cardiovascular: Regular rate and rhythm. Lungs: Would clear with some coarse breath sounds noted bilaterally. Abdomen: Protuberant but soft. Dressing in place. No active bleeding. Cholecystostomy tube draining bile. LABORATORY: White blood cell count is 13 which is slightly up from 12. Hematocrit 31. Remainder of labs reviewed. His sodium is 151. ASSESSMENT/PLAN: 76-year-old male status post cholecystostomy tube with now likely possible endocarditis. 1. Cholecystostomy tube. At this time, continue to drain bowel. Will leave in for 6 weeks. 2. Endocarditis. Will defer to Cardiology. 3. Multiple medical comorbidities. Currently being managed by the hospitalist service. cc: Abram Regalado MD
[2017-01-23] MEDS ORDERED: CORDARONE 150 MG/D5W 150 MG/100 ML IV.SOLN IV ONE (09:27)
[2017-01-23] MEDS: LOPRESSOR PO SCH ×2 (09:41→20:55)
[2017-01-23] MEDS: LASIX IV SCH ×2 (09:41→20:56)
--- NOTE | 2017-01-23 09:45 | PROGRESS NOTE ---
DATE: 01/23/2017 SUBJECTIVE: Mr. Powers is awake. He is eating better and feels a little stronger. OBJECTIVE: Temperature 97.1. He has remained afebrile. Pulse 107, respirations 25, blood pressure 104/76. CVP less than 6 cm. Lungs are clear in all lung newell. Cardiovascular: Regular rhythm and rate without murmurs. Urine output over 4 L, almost 5 L. Blood work today: White count 13,330. Hematocrit 31, platelet count 125,000. Sodium 151, potassium 3.6, chloride 106. Bicarb 37. BUN 21, creatinine 0.8, blood sugar is 190, 178, 125. ProBNP was 4895. Chest x-ray from this morning: No change. Stable chest. Right jugular line. Left-sided pacemaker. Sternal wires are present. Heart is enlarged. ASSESSMENT AND PLAN: 1. Cystostomy tube continued to drain. Leave in for 6 weeks. 2. Potential for endocarditis. We will do an esophageal echo when is able at this point. He needs to be stronger, but continue empiric treatment. I suspect he may have had infection from mouth organisms with his poor dentition. 3. Nutrition. Encouraged p.o. intake. 4. Increase activity. Continue physical therapy. 5. Diabetes mellitus, type 2. Sugars appear well controlled. I reviewed his orders. I do not see any change. He got a dose of Lasix yesterday, 80 mg. On vancomycin 2 g q. 24 hours, Betapace 80 mg p.o. b.i.d., Protonix 40 mg IV q. 24 hours. Morphine 4 mg IV q. 8 hours p.r.n., Lopressor 25 mg b.i.d., meropenem 1 g IV q.8., Synthroid 50 mcg daily. He is on Levophed. Apresoline 10 mg IV q.6 hours. He is getting regular Lasix 40 mg IV q. 12. Digoxin 125 mcg, and I believe he is getting that on Wednesday and . Lipitor 40 mg a day this. cc: Agustín Capone MD
[2017-01-23] MEDS ORDERED: CORDARONE 360 MG/D5W 360 MG/200 ML IV.SOLN IV ONE (10:00)
[2017-01-23] MEDS: BETAPACE PO SCH (10:25)
[2017-01-23 11:13] LABS: AGAP 9; BUN 22 mg/dL (8-22); CALCIUM 8.5 mg/dL (8.8-10.2); CHLORIDE 103 mmol/L (98-107); COSMO 299; MAGNESIUM 1.9 mg/dL (1.5-2.7); POTASSIUM 3.4 mmol/L (3.5-5.1); SODIUM 147 mmol/L (136-145); TCO2 35 mmol/L (25-35)
[2017-01-23] MEDS ORDERED: CORDARONE 540 MG in D5W 289.2 ML IV ONE (16:00)
[2017-01-23] MEDS: HALDOL IV PRN ×2 (17:16→23:29)
--- NOTE | 2017-01-23 18:21 | PROGRESS NOTE ---
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 His condition has improved greatly. He is awake now sitting at side of bed. He eating and talking. He has a leukocytosis. MEDICATIONS: The patient is on a combination now of vancomycin and meropenem. That was started because his white count jumped to high-level but it has been coming down. The patient has been on vancomycin and meropenem now for 3 days. PHYSICAL EXAMINATION: Vital Signs: Temperature is 97.8 degrees, pulse 111, respirations 21, blood pressure 114/96. General: This is a obese elderly male. He is lethargic but is talking and moving his extremities and wanting to sit up and he actually asked to go home. Chest: The patient's pacemaker on the left side is not swollen or tender. Lungs: Clear to auscultation. Cardiovascular: Irregular heart rate. Abdomen: Soft and nontender. The patient's colostomy bag is in place. His cholecystostomy tube also is in place. LAB AND X-RAY: Chest x-ray shows no infiltrates. [place] [address], hemoglobin 9.2, and platelet count 125,000. His bile, urine and blood cultures remain negative. ASSESSMENT AND PLAN: I think the patient has endocarditis as mentioned above. He also has leukocytosis. I would like to continue with his current antibiotics namely vancomycin and meropenem. The patient has been on those 2 antibiotics for 3 days. COMORBIDITIES: Include the following: He is elderly and he has a mechanical valve in place. He has cardiac arrhythmias and he also has diabetes. Also I just learned from the family that the patient's teeth that he has the mandible area all are dental implants. cc: Sundeep Cummins MD
[2017-01-23] MEDS: LIPITOR PO SCH (20:55)
[2017-01-23] MEDS: VANCOMYCIN 2,000 MG in NS 500 ML IV SCH (20:56)
[2017-01-24] MEDS: MERREM 1 GM in NS 50 ML IV SCH ×3 (01:45→17:34)
[2017-01-24] MEDS: HEPARIN 25,000 UNITS/D5W 25,000 UNIT/250 ML IV.SOLN IV SCH ×2 (02:13→11:33)
[2017-01-24] MEDS: DUONEB (A & A) INH SCH ×6 (03:29→23:40)
[2017-01-24 05:56] LABS: INR 1.42; PROTIME 15.3 Seconds (9.2-11.7)
[2017-01-24 05:57] LABS: HEMATOCRIT 25.4 % (42.0-52.0); HEMOGLOBIN 7.4 g/dL (14.0-18.0); MCH 31.4 PG (27-31); MCHC 29.1 g/dL (33-37); MCV 107.6 FL (81-99); MPV 10.7 FL (7.4-10.4); RBC 2.36 XMIL (4.7-6.1)
[2017-01-24 06:35] LABS: AGAP 8; ALBUMIN 3.1 g/dL (3.5-5.0); ALKALINE PHOSPHATASE 66 U/L (32-122); BUN 21 mg/dL (8-22); CALCIUM 8.2 mg/dL (8.8-10.2); CHLORIDE 102 mmol/L (98-107); COSMO 297; GOT 44 U/L (10-34); GPT 164 U/L (10-44); POTASSIUM 3.4 mmol/L (3.5-5.1); SODIUM 147 mmol/L (136-145); TCO2 37 mmol/L (25-35); TOTAL PROTEIN 5.5 g/dL (6.3-8.3)
--- NOTE | 2017-01-24 06:59 | Diag Imaging Result Doc PS360 ---
EXAM: CHEST-PORTABLE HISTORY: respiratory failure TECHNIQUE: Portable AP COMPARISON: 01/15/2017 FINDINGS: The lungs remain well expanded. The heart is enlarged. Sternal wires are present and there is a left-sided pacemaker. No change in the right jugular line. No pneumothorax. No consolidation. IMPRESSION: Stable chest Electronically signed by Tanner Clayton 01/24/2017 6:57 AM
--- NOTE | 2017-01-24 07:25 | PROGRESS NOTE ---
DATE: 01/24/2017 SUBJECTIVE: No major issues. More alert per the nursing staff. OBJECTIVE: Vital Signs: Patient is currently afebrile. His vital signs have been relatively stable. General: No acute distress. More alert. Cardiovascular: Regular rate and rhythm. Lungs: Some coarse sounds noted bilaterally. Abdomen: Protuberant but soft. Dressing in place. No active bleeding. Cholecystostomy tube draining bile. LABORATORY: Reviewed white blood cell count is 9 which is down from 13, hematocrit 25, platelet count 119,000. INR 1.42. Bilirubin 3.50. 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 1. Cholecystostomy tube. At this time, continue to drain bile. Will leave in place for 6 weeks. 2. Endocarditis. At this time will defer to cardiology. 3. Multiple medical comorbidities. Currently being managed by the hospitalist service. cc: Abram Regalado MD
[2017-01-24 07:42] LABS: BASO% 0.7 % (0.0-0.8); EOS# 0.33 X1000 (0.0-0.7); HEMATOCRIT 27.4 % (42.0-52.0); HEMOGLOBIN 8.3 g/dL (14.0-18.0); IMM GRAN# 0.79 X1000 (0.0-0.04); IMM GRAN% 7.2 % (0.0-0.5); LYMPH# 0.73 X1000 (1.2-3.4); LYMPH% 6.7 % (20.5-51.1); MANUAL DIFF NEEDED? YES; MCH 32.5 PG (27-31); MCHC 30.3 g/dL (33-37); MCV 107.5 FL (81-99); MONO# 1.52 X1000 (0.11-0.59); MONO% 13.9 % (1.7-9.3); MPV 10.6 FL (7.4-10.4); NEUT% 68.5 % (42.2-75.2); PLT 134 X1000 (130-400); RBC 2.55 XMIL (4.7-6.1)
[2017-01-24 08:52] LABS: LYMPHS 12 % (21-51); MONO 6 % (1-9)
[2017-01-24] MEDS: HUMALOG SUBQ SCH ×4 (09:59→21:55)
[2017-01-24] MEDS ORDERED: LASIX ONE (10:06)
[2017-01-24] MEDS ORDERED: CORDARONE 150 MG/D5W 150 MG/100 ML IV.SOLN IV ONE (10:09)
[2017-01-24] MEDS: LASIX IV SCH ×3 (10:28→21:44)
[2017-01-24] MEDS: SYNTHROID IV SCH (10:30)
[2017-01-24] MEDS: SODIUM CHLORIDE 0.9% INJ SCH (10:30)
[2017-01-24] MEDS: PROTONIX IV SCH (10:30)
[2017-01-24] MEDS: SODIUM CHLORIDE 0.9% INJ PRN (10:30)
[2017-01-24] MEDS: LOPRESSOR PO SCH ×2 (10:31→21:44)
[2017-01-24] MEDS: CORDARONE 540 MG in D5W 289.2 ML IV SCH (11:26)
--- NOTE | 2017-01-24 11:26 | PROGRESS NOTE ---
DATE: 01/24/2017 SUBJECTIVE: Mr. Powers is awake and alert. He did eat a little more yesterday. Quite a bit of drainage, although it has slowed down a little bit from the right cholecystostomy tube. He was put on some amiodarone yesterday. PHYSICAL EXAMINATION: Vital Signs: Temperature 97.3 degrees, pulse 105, respirations 22, blood pressure 106/73. HEENT: Pupils are equal and round. Lungs: Are clear in all lung newell. Cardiovascular Examination: Regular rhythm and rate without murmur or S3. Abdomen: Soft. Skin: Is warm and dry. Is and Os: Urine output over 3 L. LABORATORY DATA: Blood sugars 146, 289, and 135. Lab work today: White count 10,920, hematocrit is 27, platelet count 134,000. Sodium 147, potassium 3.4, chloride 102, bicarb 37, BUN 21, creatinine 0.8. Blood sugars 249, 202, 130, 135. ASSESSMENT AND PLAN: 1. Patient I suspect has endocarditis and also leukocytosis. Continue current antibiotics, vancomycin and meropenem. The patient has had treatment with these 2 antibiotics for 4 days now. 2. Mechanical valve in place. Would like to explore the valve with esophageal echocardiogram at some point. 3. Cholecystostomy tube in place with good drainage. 4. Nutrition. Has been poor oral as he has been so sick. Try to eat a little better. 5. Diabetes mellitus type 2. Continue patterned sugars and sliding scale. 6. Review of his medications. Continue present course. The family has requested to see if we could get him to [facility]. Actively, see if we can get him transferred there. They would like him to be where his heart surgery is so we will see what we can do. cc: Agustín Capone MD
--- NOTE | 2017-01-24 16:52 | PROGRESS NOTE ---
DATE: 01/24/2017 SUBJECTIVE: Family had requested to see if we could try and get him to [facility]. I called the MS line, I talked to Dr. Iza Martinez in charge of medical ICU. They had no ICU beds and they are on diversion. She suggested I talk to Cardiology. I talked to Dr. Lizzie Whitney and he did not feel they could accept him on the cardiac unit since there are other multiple complications and wanted me to try and talk to ICU again. Dr. Martinez suggested step-down unit, but of course we would have to move patient down to step-down unit here in order for him to be eligible. So they suggested I call back in a couple hours, check back at a later time, that there was no beds available that were willing to accept. cc: Agustín Capone MD
--- NOTE | 2017-01-24 20:00 | DISCHARGE SUMMARY ---
ADMISSION DATE: 01/17/2017 DISCHARGE DATE: 01/24/2017 HISTORY AND HOSPITAL COURSE: This is a 76-year-old with a past medical history of extensive heart disease which includes coronary artery disease, status post stent and CABG, bypass surgery, congestive heart failure, hypertension, hyperlipidemia, status post mitral valve replacement, as well as diabetes mellitus, hypothyroidism, and colorectal cancer. Patient presented to the emergency room on 12/17/2016 complaining of fatigue, weakness, chills, and shortness of breath. It began about 2 or 3 days before he came. His family states that he progressively got worse and he has been complaining of an upset stomach; he has not been eating much. The patient and his family denied any complaints of specific abdominal pain before that. The patient and family denied any reports of headache or chest pain, vomiting, diarrhea, or constipation. did report that he has had some swelling in his legs, sometimes a little worse, and feels as though they have been worse over the last several days. Denies any change in his stool or consistency. He has not recently been at our facility. Do not have any recent medical history on him. On presentation to the emergency room he was little confused. His initial fingerstick blood sugar was 63. Patient was given something to eat. The patient's nurse in the ER reported that after receiving something to eat the patient's confusion did improve and after that he was alert and oriented x3. His did report that he had not been eating well, he was ill-appearing, he was pale and diaphoretic. The patient's initial lactate was 6.2, given [address] of the abdomen and pelvis was also performed and showed patient with cholelithiasis, nonspecific stranding around the gallbladder. Also an ultrasound of the right upper quadrant was performed which showed cholelithiasis and gallbladder thickening. He was given a dose of vancomycin and Rocephin initially. I also added Zosyn and was admitted to our facility in ICU. Dr. Giacomo Stover evaluated. Question of whether if he appeared to have systemic inflammatory response syndrome and sepsis from underlying infection; gallbladder was suspicious. He was really too sick to take for cholecystectomy. Performed a cholecystomy tube which has drained. He developed respiratory failure and was intubated. Echocardiogram with Doppler done 01/18/2017, technically difficult study. Chemical mitral valve prosthesis appears to be functioning adequately. Moderate tricuspid regurgitation with moderate pulmonary hypertension by Doppler. [id number] concentric left ventricular hypertrophy. Left ventricular ejection fraction about 25%. Consider global hypokinesis. Mild dyskinesis in the inferior base. Enterprise was not well visualized. Cannot exclude apical thrombus. He did have left atrial enlargement, moderate to severe. Mild right-sided chamber enlargement. Mildly reduced right ventricular systolic function. His PA pressures by Doppler appeared to be about 50 mm Hg. Able to diurese and extubate him from the ventilator. Dr. Diaz is following for pulmonary. He was able to start eating a little bit. Initiated some physical therapy. Still quite a bit of drainage from the cholecystostomy tube. Family has requested we try and get him to [facility], where his die welder and vascular surgeon are. He does seem to be making some slow improvement, especially with p.o. intake. He still has episodes of significant confusion and delirium. His hemodynamics appear to have improved. Blood pressure today 106/73, pulse 115, respirations 27, O2 saturation was 100%. LABS: From today, creatinine is 0.8, sodium 147, potassium 3.4, chloride 102, bicarb 37, BUN is 21, creatinine 0.8. REVIEW OF HIS ORDERS: Currently he is on amiodarone drip which we had to start yesterday because of ventricular ectopy. He is on Lopressor 25 mg b.i.d., Protonix 40 mg a day, Synthroid 50 mcg IV daily, Lipitor 40 mg at bedtime, Lasix 80 mg IV q.12 at the present time; we just recently increased that. He gets hydralazine 10 mg IV q.6 hours p.r.n. cc: Agustín Capone MD
[2017-01-24] MEDS: VANCOMYCIN 2,000 MG in NS 500 ML IV SCH (20:37)
[2017-01-24] MEDS: LIPITOR PO SCH (21:44)
[2017-01-24] MEDS: HALDOL IV PRN (22:58)
[2017-01-25] MEDS: DUONEB (A & A) INH SCH ×6 (03:32→23:23)
[2017-01-25] MEDS: MERREM 1 GM in NS 50 ML IV SCH ×3 (03:46→17:30)
--- NOTE | 2017-01-25 07:05 | Diag Imaging Result Doc PS360 ---
EXAM: CHEST-PORTABLE HISTORY: respiratory failure TECHNIQUE: Erect AP portable chest dated 01/25/2017 at 0525 COMMENT: There is a right internal jugular central venous catheter with its tip in the right atrium. There is mild cardiomegaly. There is interstitial pulmonary edema. Overall the appearance of the chest has not changed significantly since 01/24/2017. IMPRESSION: Stable chest. Electronically signed by Ruben Mai 01/25/2017 7:03 AM
[2017-01-25 07:18] LABS: INR 1.33; PROTIME 14.2 Seconds (9.2-11.7)
[2017-01-25 07:19] LABS: HEMATOCRIT 26.7 % (42.0-52.0); HEMOGLOBIN 7.9 g/dL (14.0-18.0); MCH 31.6 PG (27-31); MCHC 29.6 g/dL (33-37); MCV 106.8 FL (81-99); MPV 10.8 FL (7.4-10.4); RBC 2.5 XMIL (4.7-6.1)
[2017-01-25] MEDS: CORDARONE 540 MG in D5W 289.2 ML IV SCH (07:25)
[2017-01-25] MEDS: PROTONIX IV SCH (07:32)
[2017-01-25] MEDS: HUMALOG SUBQ SCH ×4 (07:33→20:42)
[2017-01-25] MEDS: SYNTHROID IV SCH (07:33)
[2017-01-25] MEDS: HEPARIN 25,000 UNITS/D5W 25,000 UNIT/250 ML IV.SOLN IV SCH ×2 (07:38→11:55)
[2017-01-25 07:43] LABS: AGAP 8; ALBUMIN 3.1 g/dL (3.5-5.0); ALKALINE PHOSPHATASE 72 U/L (32-122); BUN 20 mg/dL (8-22); CALCIUM 8.5 mg/dL (8.8-10.2); CHLORIDE 99 mmol/L (98-107); COSMO 291; GOT 42 U/L (10-34); GPT 132 U/L (10-44); POTASSIUM 3.3 mmol/L (3.5-5.1); SODIUM 144 mmol/L (136-145); TCO2 37 mmol/L (25-35); TOTAL BILIRUBIN 4.16 mg/dL (0.20-1.00); TOTAL PROTEIN 5.7 g/dL (6.3-8.3)
[2017-01-25] MEDS: LASIX IV SCH ×2 (09:02→21:47)
[2017-01-25] MEDS: LOPRESSOR PO SCH ×3 (09:02→17:29)
--- NOTE | 2017-01-25 09:42 | PROGRESS NOTE ---
DATE: 01/25/2017 SUBJECTIVE: Mr. Powers is breathing comfortably. He was sleeping, easy to arouse. PHYSICAL EXAMINATION: Vital Signs: Temperature 96.3 degrees, pulse 85, respirations 26, blood pressure 121/67. HEENT: Pupils are equal and round. Lungs: Are clear in all lung newell. Cardiovascular Examination: Regular rhythm and rate without murmur or S3. Abdomen: Soft. Skin: Warm and dry. Is and Os: Urine output over 3.5 L. LABORATORY DATA: Blood sugar 135, 235, 144. White count 10,940, hematocrit 26, platelet count 144,000. Sodium 144, potassium 3.3, chloride 99, BUN 20, creatinine 0.9. Liver functions: AST was 42, ALT 132. Chest x-ray, stable chest. ASSESSMENT AND PLAN: 1. Patient is suspected of having endocarditis, possible endocarditis. A transthoracic echocardiogram has not revealed any valvular dysfunction of his mechanical mitral valve. Leukocytosis seems to be improving. Continue vancomycin and meropenem. Suspect the infection came from the mouth. 2. Mechanical valve in place. Appears to be intact. 3. Cholecystostomy tube in place. Good drainage. 4. Nutrition. He has had poor intake so encouraging oral intake which is improved. 5. Diabetes mellitus type 2. Sugar is doing better. 6. Review of his orders. I do not see any change at this point. He is on vancomycin 2 g every 24 hours, Protonix 40 mg a day, Lopressor 25 mg twice a day, meropenem 1 g every 8 hours, Lasix 80 mg intravenous every 12, amiodarone drip, atorvastatin 40 mg at bedtime. cc: Agustín Capone MD
--- NOTE | 2017-01-25 10:54 | PROGRESS NOTE ---
DATE: 01/25/2017 SUBJECTIVE: The patient complains of some generalized pains all over. He is eating a little bit of food at a time. He is trying to work with physical therapy. OBJECTIVE: Vital Signs: Temperature 96.9 degrees, pulse 103-119, blood pressure 113/77, O2 saturation 91-96%. Urine output is 2460 mL yesterday. Cholecystostomy output 100 mL. General: He is arousable, in no acute distress. Follows commands. Oriented to his name. CV: Tachycardic and regular. Respiratory: Bilateral equal breath sounds. No work of breathing. Gastrointestinal: Soft. Few bowel sounds heard. Minimal tenderness. His right upper quadrant incision is intact. There is surrounding bruising, some serosanguineous drainage. There may be a tinge of bile drainage through the incision. The cholecystostomy tube is draining bilious fluid. Laboratory: White blood cell count of 10.9, hemoglobin 7.9, platelet count 144,000. INR 1.3. Sodium 144, potassium 3.3, chloride 99, CO2 37, BUN 20, creatinine 0.9, glucose 132. Total bilirubin 4.2, AST 42, ALT 132, alkaline phosphatase 72. Imaging: A chest x-ray today shows mild cardiomegaly and interstitial pulmonary edema. Overall no significant change since yesterday. 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 He is status post cholecystostomy tube. Dr. Cummins is treating him for the endocarditis. A transfer process has been initiated to [facility], although as I understand it, beds are not available right now. This would be for heart valve evaluation by his surgeon as. Far as the cholecystostomy tube goes, I would leave in place until at least the middle of February. The incision needs to be watched for any infection. The billy should stay in for at least 1 more week. cc: Giacomo Stover MD
--- NOTE | 2017-01-25 14:13 | PROGRESS NOTE ---
DATE: 01/25/2017 SUBJECTIVE: Mr. Powers seems much more alert today. He is able to answer questions, follow commands. He is not in restraints today. PHYSICAL EXAMINATION: Vital signs: He is afebrile. His heart rate seems to be sustaining in the 100s-110s predominantly. Blood pressure 115/74. Generally: He is in no acute distress. Cardiovascular: He is in a tachycardic and what seems to be regular rhythm. His telemetry is unclear. It seems most beats are paced. I cannot tell distinct P-waves. He has no lower extremity edema. Warm and well perfused lower extremities. Chest: Has coarse breath sounds throughout. No increased work of breathing. Abdomen: Soft, nontender, nondistended. No obvious organomegaly. Skin Exam: Warm and dry throughout. PERTINENT DATA: His white count is 10.9, his hematocrit is 26.7, his platelet count is 144,000. Sodium 144, potassium is 3.3, his BUN is 20, creatinine 0.9. His magnesium has not been checked for a few days. ASSESSMENT: 1. Ventricular tachycardia. 2. Congestive heart failure. 3. Possible endocarditis. PLAN: We will proceed with reducing the amiodarone from IV amiodarone to oral b.i.d. I will increase his Toprol to t.i.d. We will discuss with Pulmonary timing of his of potential transesophageal echocardiogram. cc: Wilton Graff MD
[2017-01-25] MEDS: POTASSIUM CHLORIDE 20 MEQ/SWI 20 MEQ/100 ML IVPB IV SCH ×2 (14:15→17:30)
[2017-01-25] MEDS ORDERED: NORCO-7.5 PO PRN (17:09)
--- NOTE | 2017-01-25 20:39 | PROGRESS NOTE ---
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 While he was being treated for it, he developed a leukocytosis and we have had to change his antibiotics for a presumed superinfection although one was never identified. MEDICATIONS: Patient is on vancomycin and meropenem. He has been on these antibiotics for 5 days. PHYSICAL EXAMINATION: Vital Signs: Temperature is 98.9 degrees, pulse 102, respirations 21, blood pressure 99/69. General: This is a somewhat ill-appearing, obese, elderly male. He is in no acute distress. Head, eyes, ears, nose, and throat: He can hear my spoken words and see near objects. His speech is intact. Neck: The patient has a right internal jugular catheter in place there. The site is not erythematous or swollen. Thorax: Patient has an increased AP diameter of the chest. Lungs: Clear to auscultation. Cardiovascular: Heart rate is for the most part regular. There are sporadic PVCs. Abdomen: Soft and nontender. A colostomy is in place as well as a cholecystostomy tube. LAB AND X-RAY: CBC-WBC 10.94, hgb 7.9, platelets 144K. Creatinine-0.9. GFR->60. Vancomycin level-23.5. Chest x-ray shows pulmonary edema. ASSESSMENT AND PLAN: I think the patient has endocarditis with possible superimposed infection. For right now, I am going to continue with his current antibiotics. Dr. Graff is going to check with pulmonary about possibly doing a transesophageal echocardiogram. COMORBIDITIES: The patient has the following comorbidities. He is elderly, he has a mechanical mitral valve in place, he has cardiac arrhythmias, he also is a diabetic. Also , the patient has dental implants so that if there is infection in his mouth it will be very difficult to deal with if the implants are infected. cc: Sundeep Cummins MD MTDD
[2017-01-25] MEDS: LIPITOR PO SCH (20:42)
[2017-01-25] MEDS: CORDARONE PO SCH (20:42)
[2017-01-25] MEDS ORDERED: HALDOL IM PRN (21:28)
[2017-01-25] MEDS ORDERED: HALDOL IM ONE (21:29)
[2017-01-26] MEDS ORDERED: ATIVAN IM ONE (01:15)
[2017-01-26] MEDS ORDERED: BENADRYL IM ONE ×2 (01:15→01:30)
[2017-01-26] MEDS: MERREM 1 GM in NS 50 ML IV SCH ×3 (01:31→18:36)
[2017-01-26] MEDS: DUONEB (A & A) INH SCH ×6 (03:39→23:23)
[2017-01-26] MEDS: SODIUM CHLORIDE 0.9% INJ SCH (04:47)
[2017-01-26] MEDS: PROTONIX IV SCH (04:48)
[2017-01-26] MEDS: SODIUM CHLORIDE 0.9% INJ PRN (06:21)
[2017-01-26] MEDS: SYNTHROID IV SCH (06:21)
[2017-01-26] MEDS: HUMALOG SUBQ SCH ×4 (06:22→20:15)
[2017-01-26] MEDS: HEPARIN 25,000 UNITS/D5W 25,000 UNIT/250 ML IV.SOLN IV SCH (06:29)
[2017-01-26 06:42] LABS: INR 1.32; PROTIME 14.1 Seconds (9.2-11.7)
[2017-01-26 06:44] LABS: HEMATOCRIT 23.5 % (42.0-52.0); HEMOGLOBIN 6.9 g/dL (14.0-18.0); MCH 31.2 PG (27-31); MCHC 29.4 g/dL (33-37); MCV 106.3 FL (81-99); MPV 11.1 FL (7.4-10.4); RBC 2.21 XMIL (4.7-6.1)
--- NOTE | 2017-01-26 07:22 | Diag Imaging Result Doc PS360 ---
EXAM: CHEST-PORTABLE INDICATION: respiratory failure TECHNIQUE: One view COMPARISON: 01/25/2017 FINDINGS: Right central line is in stable position. Interstitial thickening most compatible with edema is unchanged. There are no new consolidations. There is stable cardiomegaly. IMPRESSION: Stable chest. Electronically signed by Zachary Blanchard 01/26/2017 7:20 AM
[2017-01-26 07:55] LABS: AGAP 10; ALBUMIN 2.7 g/dL (3.5-5.0); ALKALINE PHOSPHATASE 70 U/L (32-122); BUN 17 mg/dL (8-22); CHLORIDE 95 mmol/L (98-107); COSMO 279; GOT 44 U/L (10-34); GPT 97 U/L (10-44); POTASSIUM 3.8 mmol/L (3.5-5.1); SODIUM 138 mmol/L (136-145); TCO2 33 mmol/L (25-35); TOTAL BILIRUBIN 3.67 mg/dL (0.20-1.00); TOTAL PROTEIN 5.3 g/dL (6.3-8.3)
[2017-01-26] MEDS: CORDARONE PO SCH ×2 (10:14→20:15)
[2017-01-26] MEDS: LASIX IV SCH ×2 (10:15→22:58)
[2017-01-26] MEDS: LOPRESSOR PO SCH ×3 (10:15→16:44)
--- NOTE | 2017-01-26 12:55 | PROGRESS NOTE ---
DATE: 01/26/2017 SUBJECTIVE: Mr. Powers was sleeping. Was easy to arouse. Appears to be breathing fairly comfortably. He did have more confusion last night. OBJECTIVE: Vital signs: He remains afebrile, temperature 97.6 degrees, pulse 112, respirations 20, blood pressure 99/58. HEENT: Pupils are equal, round. Lungs: Clear in all lung newell. Cardiovascular: Regular rhythm and rate without murmur or S3. Abdomen: Soft. The right cholecystostomy drain is diminished in the drainage. Urine output was over 4.5 L. LAB: Today white count 3,340, hematocrit 23, platelet count 140,000. Chemistry: Sodium 138, potassium 3.8, chloride 95, BUN 17, creatinine 1.0, blood sugar is 223, 133, 150, 184. Chest x- ray from this morning: Stable chest. Right central line stable position. Interstitial thickening most compatible with some edema; it is unchanged. No new consolidations. ASSESSMENT AND PLAN: 1. 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 Also could have just been bacteremia and sepsis from mouth olena. He developed leukocytosis and seemed to have sepsis of super infection. Cultures have not be revealing other than strep organisms. Continue present antibiotics. Seems to be making progress. 2. Ventricular tachycardia. History of mechanical mitral valve and history of systolic congestive heart failure. Appears to be doing better. Improved compensation. Continue present medications. 3. There is question of whether he had cholecystitis. Cholecystostomy tube was placed in the face of profound sickness and appeared to have sepsis going on. Drain is still in place. Drainage has diminished. 4. Diabetes mellitus type 2. Continue to follow sugar. 5. Nutrition. Encourage p.o. intake. 6. General weakness and deconditioning. Continue to encourage physical therapy and work on strengthening exercises. 7. Orders. I do not see any change at this point. 8. He also has a history of hypothyroidism for which he is on Synthroid. We have him on a heparin drip and need to probably start him back on his Coumadin. I am not sure when we will be able to do an esophageal echo. We have done a transthoracic echo. Mitral valve appears to be functioning well. cc: Agustín Capone MD
[2017-01-26] MEDS ORDERED: LASIX IV ONE (17:01)
--- NOTE | 2017-01-26 17:16 | PROGRESS NOTE ---
DATE: 01/26/2017 SUBJECTIVE: Mr. Powers continues to be somewhat confused. He opens his eyes and follows commands but does not participate in the history very much. OBJECTIVE: Vital Signs: Physically he is afebrile. Heart rates in the 100s to 110s. Blood pressure 109/61. Generally: No acute distress. Cardiovascular: He is in an irregularly irregular rhythm. No obvious murmurs. He has no S3. He has no lower extremity edema. Chest exam: Sounds coarse bilateral breath sounds. No increased work of breathing. Abdomen: His abdomen is soft, nontender. Clean and dry surgical wound, some ecchymoses noted surrounding it. S Skin exam: Warm and dry throughout. PERTINENT DATA: White count is 11.3, his hematocrit is 23.5 which has steadily dropped from 33.6 on the 9th. His sodium is 138, potassium is 3.8, his BUN is 17, creatinine is 1, albumin is 2.7. ASSESSMENT: 1. Possible endocarditis. 2. Mechanical mitral valve. 3. Anemia. 4. Congestive heart failure. PLAN: I agree with transfusion today. Tentative plan is for a transesophageal echo in the next 24-48 hours. I will continue on heparin considering the patient's acute blood loss. He has no obvious source for this blood loss at present. He is not febrile. His microbiology data has shown no growth on the 7th after first cultures on the 3rd were positive. cc: Wilton Graff MD
--- NOTE | 2017-01-26 17:29 | PROGRESS NOTE ---
DATE: 01/26/2017 SUBJECTIVE: The patient has had more episodes of agitation overnight, some confusion, wanting to get out of bed and go home. OBJECTIVE: Vital signs: He is afebrile. His vital signs are stable. He does have a heart rate in the low 100s. Urine output approximately 3000 mL yesterday. His cholecystostomy tube had 300 mL. General: He is arousable. He does follow commands. He seems somewhat confused. He is also somewhat somnolent. Respiratory: Bilateral equal breath sounds. No work of breathing. GI: Soft and nondistended. Minimally tender in the right upper quadrant. He does have some edema and bruising around his right upper quadrant incision there is no foul odor, erythema or significant drainage. LABORATORY: White blood cell count 11,000, hemoglobin 6.9, electrolytes reviewed and unremarkable. Liver function tests were stable. ASSESSMENT AND PLAN: A 76-year-old male with a cholecystostomy tube. He is recovering from sepsis and bacteremia possibly due to endocarditis versus bacteremia from an oral infection and cholecystostomy tube was placed for possible cholecystitis. This is stable. I think at this point, continued encouraging of nutrition as well as physical therapy is important. It would be okay to start him back on his Coumadin from my standpoint. Further evaluation of his heart valve would be at the discretion of his bulb inspector. cc: Giacomo Stover MD
[2017-01-26] MEDS: VANCOMYCIN 1.5 GM in NS 250 ML IV SCH (17:42)
--- NOTE | 2017-01-26 18:35 | PROGRESS NOTE ---
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 During his treatment for that he developed leukocytosis and his antibiotics were changed because it was felt that he may be had developed another infection on top of his endocarditis. MEDICATIONS: The patient has been now on vancomycin and meropenem for 5 days. He had been on antibiotics since he came in the hospital on January 17 and now he is on day 5 of the 2 antibiotics we switched all to. But overall the patient has had a total of 9 days of antibiotics which show good activity against the patient's streptococcal blood isolate. PHYSICAL EXAMINATION: Vital Signs: Temperature is 97.6 degrees, pulse 110, respirations 22, blood pressure 109/61. General: This is a slightly lethargic obese elderly male who is in no acute distress. He seems to be in almost like a delirium. He sometimes moves his arms and legs. Sometimes he attempts to talk. He did not answer questions. He did not move his extremities to request. Lungs: Clear to auscultation. Cardiovascular: Heart rate is regular with occasional PVCs. Abdomen: Soft and nontender. The patient has a colostomy in place and a cholecystostomy tube in place as well. LABORATORY AND X-RAY: Chest x-ray shows findings of pulmonary edema. The patient's CBC shows a white count of 11,340, hemoglobin 6.9, and platelet count 140,000. Creatinine is 1. GFR is greater than 60. Vancomycin level is 20.3. ASSESSMENT AND PLAN: 1. I think the patient has endocarditis with superimposed infection. For right now, I am going to continue with the vancomycin and meropenem, but in a few days, I would like to return him to Rocephin which was the drug he was on prior to his white count increasing. Hopefully, this week we will be able to get a transesophageal echocardiogram done. 2. Comorbidities in this patient, his main one is he is elderly. He has a mechanical mitral valve in place. He is a diabetic. He also has a possible dental infections and he does have dental implants present. cc: Sundeep Cummins MD
[2017-01-26] MEDS ORDERED: NS 500 ML ONE (19:41)
[2017-01-26] MEDS: LIPITOR PO SCH (20:15)
[2017-01-26] MEDS: HALDOL IM PRN (22:58)
[2017-01-27] MEDS: MERREM 1 GM in NS 50 ML IV SCH ×3 (01:38→17:54)
[2017-01-27] MEDS: HEPARIN 25,000 UNITS/D5W 25,000 UNIT/250 ML IV.SOLN IV SCH ×2 (01:39→20:54)
[2017-01-27] MEDS: DUONEB (A & A) INH SCH ×7 (03:10→22:43)
[2017-01-27] MEDS: PROTONIX IV SCH (04:42)
[2017-01-27] MEDS: SODIUM CHLORIDE 0.9% INJ SCH (04:43)
[2017-01-27 05:42] LABS: INR 1.37; PROTIME 14.7 Seconds (9.2-11.7)
[2017-01-27 05:44] LABS: HEMATOCRIT 28.7 % (42.0-52.0); MCH 32.1 PG (27-31); MCHC 31.4 g/dL (33-37); MCV 102.5 FL (81-99); MPV 11.1 FL (7.4-10.4); RBC 2.8 XMIL (4.7-6.1)
[2017-01-27] MEDS: SODIUM CHLORIDE 0.9% INJ PRN (06:04)
[2017-01-27] MEDS: HUMALOG SUBQ SCH ×4 (06:04→20:53)
[2017-01-27] MEDS: SYNTHROID IV SCH (06:04)
[2017-01-27 06:05] LABS: AGAP 12; ALKALINE PHOSPHATASE 76 U/L (32-122); BUN 22 mg/dL (8-22); CALCIUM 8.5 mg/dL (8.8-10.2); CHLORIDE 93 mmol/L (98-107); COSMO 282; GOT 42 U/L (10-34); GPT 90 U/L (10-44); POTASSIUM 3.6 mmol/L (3.5-5.1); SODIUM 138 mmol/L (136-145); TCO2 33 mmol/L (25-35); TOTAL BILIRUBIN 6.82 mg/dL (0.20-1.00); TOTAL PROTEIN 5.9 g/dL (6.3-8.3)
--- NOTE | 2017-01-27 07:21 | Diag Imaging Result Doc PS360 ---
EXAM: CHEST-PORTABLE INDICATION: respiratory failure TECHNIQUE: One view COMPARISON: 01/26/2017 FINDINGS: Right central line is in stable position. Prominent interstitial markings are essentially stable. This likely represents edema. There are no new consolidations. Cardiac silhouette is stable. IMPRESSION: Stable chest. Electronically signed by Zachary Blanchard 01/27/2017 7:19 AM
[2017-01-27] MEDS: LOPRESSOR PO SCH ×3 (09:31→17:06)
[2017-01-27] MEDS: CORDARONE PO SCH ×2 (09:31→20:53)
[2017-01-27] MEDS: LASIX IV SCH ×2 (09:32→21:02)
--- NOTE | 2017-01-27 10:23 | PROGRESS NOTE ---
DATE: 01/27/2017 SUBJECTIVE: He is still having a good deal of confusion. He did wake up and had a little confusion at the beginning, but got oriented again that he was in the hospital. He has not been eating a whole lot. He is breathing comfortably. I gave him 2 units of blood yesterday. OBJECTIVE: Vital Signs: He remains afebrile. Temperature 99.1 degrees, pulse 110, respirations 20, blood pressure 147/70. CVP appears about 10 cm water pressure. Lungs: Anterior and lateral are clear. Cardiovascular: Regular rhythm and rate without murmur or S3. Abdomen: Soft. Skin: Warm and dry. DIAGNOSTIC DATA: His labs, white count 18,230, hematocrit 28, platelet count 207,000. Chemistries: Sodium 138, potassium 3.6, chloride 93, BUN 22, creatinine 1.1. Blood sugar 198, 206, 160, 155. AST 42, ALT was 90. Chest x-ray on 01/27/2017, stable chest. Central line in stable position. Prominent interstitial markings are essentially stable. ASSESSMENT AND PLAN: 1. 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 We would like to do esophageal echocardiogram at some point during his treatment. He had leukocytosis. He continue to be on antibiotics. This was changed, antibiotics were changed, and it was felt that he may have developed another infection on top of the endocarditis, so he is on vancomycin and meropenem for 5 days. He had been on antibiotics when he came into the hospital on 01/17/2017. Now he is on day 6 of the 2 antibiotics. 2. Pulmonary edema. He developed respiratory failure. He was weaned off the ventilator. His breathing status is improving. Continue to try and diurese and get some fluid off. 3. Encourage oral intake. 4. General weakness and deconditioning. We continue to try to get him up in a chair to improve his strength. 5. He has a cholecystostomy tube placed for possible cholecystitis. He does seem to have a little subcutaneous hematoma around the incision. 6. Anemia. We gave him 2 units of blood yesterday. He is presently on a heparin drip still. We will continue to watch the incision line. cc: Agustín Capone MD
--- NOTE | 2017-01-27 17:19 | PROGRESS NOTE ---
DATE: 01/27/2017 SUBJECTIVE: The patient was noted to have some bleeding earlier this afternoon from his lateral incision especially after sitting up in a chair and some forceful coughing. Since then he has been lying down with a pressure dressing and the bleeding appears to be controlled. OBJECTIVE: He is afebrile. Heart rate 110, respiratory rate 25-30, blood pressure 111/75, O2 saturation 94%. Urine output 1800 mL yesterday. Cholecystostomy tube 220 mL.General: He is awake and alert and follows commands. Respiratory: Bilateral coarse breath sounds. CV: Tachycardic. Gastrointestinal: Soft, nondistended. There is some induration and bruising along the right lateral portion of the incision. It does not appear to be particularly erythematous. There is no odor or purulence seen. I suspect there is some underlying hematoma and seroma here. LABORATORY: Laboratory values were reviewed. White blood cell count was noted to be 18,000. Hemoglobin and hematocrit are stable at 9 and 29. BUN and creatinine stable at 22 and 1.1. IMAGING: A chest x-ray today shows a stable chest with a pulmonary edema. No new consolidations. ASSESSMENT/PLAN: A 76-year-old male with congestive heart failure, possibly endocarditis and recent cholecystostomy tube. I think his main problems now are fluid overload, congestive heart failure, deconditioning, and confusion. He is being treated for presumptive endocarditis and further confirmation of this with a DAWSON is being pursued. I do not think he has any significant bleeding just some evacuation of seroma and hematoma from the incision at times. We will continue to observe this at this time. cc: Giacomo Stover MD
[2017-01-27] MEDS: VANCOMYCIN 1.5 GM in NS 250 ML IV SCH (17:53)
--- NOTE | 2017-01-27 20:08 | PROGRESS NOTE ---
DATE: 01/27/2017 PRESENT ILLNESS: The patient presumptively has been diagnosed with having streptococcal prosthetic mitral valve endocarditis. He has leukocytosis. MEDICATIONS: The patient overall has been on antibiotics for 10 days. For the last 6 days, he has been on vancomycin and meropenem. PHYSICAL EXAMINATION: Vital Signs: Temperature is 99, pulse 117, respirations 24, blood pressure 111/75. Generally: This is an obese, elderly male. He is in no acute distress. Neurologic: He is awake. He can move his extremities. There is no tremor. Lungs: Clear to auscultation. Cardiovascular: Regular heart rate. Abdomen: Seems somewhat distended it is soft and it is not tender. Neurologic: Patient is awake. He can move his extremities. There is no tremor. LAB AND X-RAY: Chest x-ray shows interstitial edema. The patient's CBC shows a white count of 18,230, hemoglobin is 9, platelet count is 207,000. Creatinine is 1.1. GFR is greater than 60. Bilirubin is up to 6.82. ASSESSMENT AND PLAN: The patient has endocarditis with possible superimposed infection. For right now, I am going to continue with the current antibiotics. COMORBIDITIES: He is elderly. He has a mechanical mitral valve in place. He is also a diabetic and has possible dental infections which could have been the source of his streptococcal bacteremia. cc: Sundeep Cummins MD
[2017-01-27] MEDS: LIPITOR PO SCH (20:53)
[2017-01-27] MEDS: HALDOL IM PRN (21:02)
[2017-01-27] MEDS ORDERED: STERILE WATER INJ. INJ ONE (22:11)
[2017-01-27] MEDS ORDERED: GEODON IM ONE (22:11)
[2017-01-28 01:19] LABS: HEMATOCRIT 26.7 % (42.0-52.0); HEMOGLOBIN 8.3 g/dL (14.0-18.0)
[2017-01-28] MEDS: MERREM 1 GM in NS 50 ML IV SCH ×3 (02:27→17:37)
[2017-01-28] MEDS: DUONEB (A & A) INH SCH ×6 (02:56→23:32)
[2017-01-28] MEDS: SODIUM CHLORIDE 0.9% INJ SCH (04:10)
[2017-01-28] MEDS: PROTONIX IV SCH (04:10)
[2017-01-28 05:49] LABS: HEMATOCRIT 25.8 % (42.0-52.0); HEMOGLOBIN 8.1 g/dL (14.0-18.0); MCH 32.9 PG (27-31); MCHC 31.4 g/dL (33-37); MCV 104.9 FL (81-99); MPV 10.9 FL (7.4-10.4); RBC 2.46 XMIL (4.7-6.1)
[2017-01-28 06:01] LABS: INR 1.31
[2017-01-28] MEDS: HUMALOG SUBQ SCH ×4 (06:25→20:11)
[2017-01-28 06:26] LABS: ALBUMIN 2.9 g/dL (3.5-5.0); CALCIUM 8.4 mg/dL (8.8-10.2); TOTAL BILIRUBIN 5.26 mg/dL (0.20-1.00); TOTAL PROTEIN 5.8 g/dL (6.3-8.3)
[2017-01-28] MEDS ORDERED: HEPARIN 25,000 UNITS/D5W 25,000 UNIT/250 ML IV.SOLN IV SCH ×2 (06:54→19:31)
[2017-01-28] MEDS ORDERED: HEPARIN IV ONE (06:55)
--- NOTE | 2017-01-28 06:57 | EKG Report ---
Test Performed on : 01/28/2017 06:04:55 AM Test Reason : tachycardia Blood Pressure : / mmHG Vent. Rate : 125 BPM Atrial Rate : 067 BPM P-R Int : 000 ms QRS Dur : 144 ms QT Int : 398 ms P-R-T Axes : 000 267 114 degrees QTc Int : 574 ms Ventricular-paced rhythm Biventricular pacemaker detected Abnormal ECG When compared with ECG of 17-JAN-2017 00:02, Previous ECG has undetermined rhythm, needs review Confirmed by Clif MORA, Bill Odonnell ([id number]) on 01/29/2017 9:13:30 AM
[2017-01-28] MEDS: SYNTHROID IV SCH (07:15)
[2017-01-28] MEDS: SODIUM CHLORIDE 0.9% INJ PRN (07:16)
--- NOTE | 2017-01-28 07:42 | Diag Imaging Result Doc PS360 ---
EXAM: CHEST-PORTABLE HISTORY: confirm NG tube placement. TECHNIQUE: Portable abdomen supine at 0030 COMMENT: The tip of the NG tube is not clearly visible. There is some gaseous dilatation of small bowel loops in the midabdomen. IMPRESSION: NG tube not demonstrated. Electronically signed by Ruben Mai 01/28/2017 7:39 AM
--- NOTE | 2017-01-28 07:47 | Diag Imaging Result Doc PS360 ---
EXAM: FLAT/UPRIGHT ABD/1 VIEW CHEST HISTORY: MD ordered TECHNIQUE: AP upright at 0525 COMMENT: There is cardiomegaly and increased pulmonary vascularity. The inspiration is slightly less optimal than on 01/27/2017. Otherwise the appearance of the chest has not changed significantly. IMPRESSION: Cardiomegaly. Possibility of slight pulmonary edema cannot be excluded. This is probably superimposed on pre-existing fibrosis as seen on 07/18/2016. Electronically signed by Ruben Mai 01/28/2017 7:45 AM
--- NOTE | 2017-01-28 08:30 | Diag Imaging Result Doc PS360 ---
EXAM: THORAX W/WO ABD/PEL W/WO - 01/28/2017 HISTORY: aspiration pna, intraabdominal bleeding TECHNIQUE: Without and with intravenous contrast. Dose reduction protocol. COMPARISON: CT abdomen and pelvis of 01/27/2017 FINDINGS: There are small to medium bilateral pleural effusions. There is possibly small amount of loculated pleural fluid at the superior aspect of the major fissures bilaterally, is prominent on the left. There is some compressive atelectasis adjacent to the pleural fluid. There is ill-defined infiltrate in the right lower lobe. There is no other dense consolidation identified. There is no pneumothorax. There is a left lower lung nodule with central calcification, compatible with partially calcified granuloma. There are nonspecific small mediastinal lymph nodes. What appears to represent the gallbladder is contracted and contains multiple small calcified stones. There is been development of a large heterogeneous lesion in the right anterior and anterior lateral abdominal wall. This contains areas of high and low density with some fluid fluid levels. This is suspicious for a large abdominal wall hematoma. This process also involves the underlying abdominal cavity on the right with lobulated hematoma or hematomas. There are some low to intermediate density free fluid in the abdomen and pelvis which may relate to hemoperitoneum. There is no abscess identified. There is no free peritoneal air identified. There is a left lower quadrant colostomy. There is a small midline lower anterior abdominal wall hernia superior medial to the colostomy. This hernia contains a small amount of small bowel, similar to the previous exam. Mild distention of small bowel in midabdomen, although is not clear if this has any relation to the presence of a hernia. There are no acute changes identified in the liver, spleen, adrenal glands, pancreas, or kidneys identified. IMPRESSION: Small to medium bilateral pleural effusions. Ill-defined infiltrate at right lower lobe. Right lower lobe pneumonia cannot be excluded. Large anterior and lateral gallbladder wall hernia on the right. Lobulated hematoma or hematomas an underlying right abdomen. Some free fluid in abdomen and pelvis which may relate to hemoperitoneum. Small midline lower anterior abdominal wall hernia which contains a small amount of small bowel. Mild distention of proximal small bowel which may or may not relate to the hernia. Early small bowel obstruction from a hernia cannot be excluded, however. The operational review sergeant radiologist provided primary results at 2:53 AM on 01/28/2017. Electronically signed by Andrew Arnold 01/28/2017 8:28 AM
[2017-01-28] MEDS: LASIX IV SCH ×2 (10:11→21:18)
[2017-01-28] MEDS: LOPRESSOR PO SCH ×3 (10:31→17:37)
[2017-01-28] MEDS: CORDARONE PO SCH ×2 (10:31→20:11)
--- NOTE | 2017-01-28 12:14 | PROGRESS NOTE ---
DATE: 01/28/2017 SUBJECTIVE: Last night the patient apparently had some nausea and possible vomiting or aspiration. Imaging was obtained, including abdominal and chest x-ray, as well as CT of the abdomen and chest. Results of these images showed a possible early small bowel obstruction due to some mild distention of the proximal small bowel. There is a stable midline lower anterior abdominal wall hernia containing a small amount of small bowel. It is unclear if this hernia is significant for the obstruction. There is a large hematoma in the right abdominal wall with some hemoperitoneum, and there are small to medium bilateral pleural effusions and an ill-defined infiltrate in the right lower lobe and possible right lower lobe pneumonia. The patient also appears to be more confused and agitated this morning. OBJECTIVE: Vital Signs: He is afebrile, pulse is 117-120, respiratory rate 20 to 26, blood pressure 130/74, O2 saturation 95%. General: He is somnolent, but arousable. He does answer some simple questions and is oriented to himself, the city [facility], and his and son. He does follow simple commands. Respiratory: Coarse bilateral breath sounds. CV: Tachycardic and regular. GI: Overall soft and nondistended, but he has some firm, indurated, bruising area indicative of a hematoma in the right upper quadrant below his incision. I do not see any erythema or foul malodorous drainage. LABORATORY: White blood cell count 21,000, hemoglobin 8.3, hematocrit 26.7, INR 1.3, PTT 51.8. BUN 22, creatinine 1.2, potassium 4.0, sodium 138, glucose 159, total bilirubin 5.3, AST 43, ALT 68, alkaline phosphatase 71. IMAGING: As described above in HPI. ASSESSMENT AND PLAN: A 76-year-old male, who has multiple medical problems including congestive heart failure, possible endocarditis of a prosthetic valve, status post cholecystostomy tube for presumed cholecystitis, now possible small-bowel obstruction and aspiration pneumonia. I will evacuate the hematoma at the bedside today for relief of symptoms. His transesophageal echocardiogram is on hold as he has an nasogastric tube, and he would require endotracheal intubation and mechanical ventilation to do the transesophageal echocardiogram at this time. This would be too risky from a cardiovascular and respiratory standpoint as of today. For the small- bowel obstruction, I think conservative management is prudent. We will continue the nasogastric tube and nothing per edmond. He will need parental nutrition for now. We will follow his abdominal exam and x-rays. Hopefully, this will resolve soon. He is a high operative risk. I think a repeat culture data is indicated today given his elevated white blood cell count. We will continue to follow his liver function tests; they have slowly risen the last 2 days. cc: Giacomo Stover MD
--- NOTE | 2017-01-28 12:41 | OPERATIVE NOTE ---
PROCEDURE DATE: 01/28/2017 PREOPERATIVE DIAGNOSIS: Incisional hematoma of the abdominal wall. POSTOPERATIVE DIAGNOSIS: Incisional hematoma of the abdominal wall. PROCEDURE: Evacuation of hematoma. SURGEON: Dr. Giacomo tSover. ESTIMATED BLOOD LOSS: None. COMPLICATIONS: None apparent. FINDINGS: Large hematoma and seroma of the right upper quadrant abdominal wall. No signs of infection are present. TECHNIQUE: The skin was cleaned with Betadine. Sterile towels and drapes were used. Under strict sterile precautions with gloves and gown, the billy were removed on the lateral aspect of the incision. A large amount of serous fluid followed by old hematoma was evacuated. The wound was irrigated with saline until the hematoma was thoroughly evacuated. I do not see any purulence or detect any odor. The wound was then packed with saline moistened Kerlix. I then put a new 3-0 silk suture around his cholecystostomy tube to better secure it. A sterile dressing was applied. There were no apparent complications. cc: Giacomo Stover MD
[2017-01-28] MEDS ORDERED: D10W 1,000 ML IV SCH (16:30)
[2017-01-28] MEDS ORDERED: TPN ELECTROLYTES 20 ML, MAGNESIUM SULFATE 4 MEQ, POTASSIUM CHLORIDE 20 MEQ, M.V.I.-12 1... IV SCH ×7 (17:00)
[2017-01-28] MEDS: VANCOMYCIN 1.5 GM in NS 250 ML IV SCH (17:56)
--- NOTE | 2017-01-28 18:01 | PROGRESS NOTE ---
DATE: 01/28/2017 SUBJECTIVE: Events from overnight were reviewed. The patient's respiratory status appears to have worsened. OBJECTIVE: Vital signs: Temperature 98.5, blood pressure 100/72, heart rate 121, respirations 16, O2 saturation 97% on 50% Ventimask. General: This is a fragile, ill- appearing elderly male, lying in bed in no acute distress. Head: Normocephalic, atraumatic. Heart: S1, S2 normal. Tachycardic. Lungs: Coarse breath sounds with crackles. Abdomen: Distended, hypoactive bowel sounds. Extremities: No clubbing, edema, cyanosis. No calf tenderness. Neurologic: The patient is confused, does move all 4 extremities. LABORATORY DATA: White blood cell count 21, hemoglobin 8.3, hematocrit 26, platelets 251. INR 1.3. Sodium 138, potassium 4, chloride 92, CO2 of 36, BUN 22, creatinine 1.2, glucose 159. Total bilirubin 52, AST 43, ALT 68. ASSESSMENT AND PLAN: 1. Acute hypoxemic respiratory failure. Continue on bronchodilator therapy and IV antibiotics. Pulmonary following. 2. Status post evacuation of abdominal wall hematoma. Management as per the general surgeon. 3. Suspected endocarditis. Management as per Dr. Sundeep Cummins. Continue on IV antibiotics as scheduled. DAWSON to be scheduled by the race starter when the patient is more stable. Suspected secondary to streptococcus. Continue on the current IV antibiotic regimen. 4. Ischemic cardiomyopathy. Aware. 5. Hypothyroidism. Continue IV Synthroid. 6. Mechanical mitral valve. Continue on heparin drip. Cardiology is following. 7. Acute cholecystitis s/p open cholecystostomy. As per the general surgeon. 8. GI prophylaxis. Continue on IV Protonix. cc: Ofelia Dougherty MD [facility]
[2017-01-28 18:11] LABS: CALCIUM 8.5 mg/dL (8.8-10.2); MAGNESIUM 2.4 mg/dL (1.5-2.7); POTASSIUM 4.3 mmol/L (3.5-5.1); PREALBUMIN 6.6 mg/dL (20-40)
--- NOTE | 2017-01-28 18:27 | PROGRESS NOTE ---
DATE: 01/28/2017 PRESENT ILLNESS: Patient presumptively has been diagnosed with streptococcal prosthetic valve endocarditis. He has leukocytosis. He had cholecystitis and a tube has been placed in the gallbladder. Today a hematoma in that area was drained. Today also however he is less responsive, the exact reason is uncertain to me at this time. MEDICATIONS: The patient currently is on a combination of vancomycin and meropenem. Overall, the patient has been on antibiotics for 11 days and for the past 7 days it has been vancomycin and meropenem. PHYSICAL EXAMINATION: Vital Signs: Temperature is 98.5 degrees, pulse 121, respirations 16, blood pressure 100/72. Generally: This is an ill-appearing, elderly male who is in no acute distress. However he is very lethargic. Neck: No meningismus. Lungs: Clear to auscultation. Cardiovascular: Heart rate is regular. Abdomen: Soft and not tender. In the right side the patient has his cholecystostomy tube and there is a dressing over where the hematoma on the abdominal wall was drained/ patient also has a colostomy. LAB AND X-RAY: CT scan of the abdomen and pelvis and chest show the patient has a right lower lobe infiltrate. Bilateral pleural effusions. Some hematomas in the right side of the abdomen and the gallbladder hernia. The repeat blood cultures are sterile. ASSESSMENT AND PLAN: The patient has endocarditis and may have some pneumonia as well. He has an altered mental status. For now, I am going to continue with his meropenem and vancomycin. COMORBIDITIES: Include he is elderly. He has a mechanical mitral valve. He is also a diabetic. He possibly has dental infections and he does have dental implants. cc: Sundeep Cummins MD
--- NOTE | 2017-01-28 18:57 | Diag Imaging Result Doc PS360 ---
EXAM: HEAD W/O CONTRAST - 01/28/2017 HISTORY: altered mental status TECHNIQUE: Dose reduction protocol COMPARISON: 07/18/2016 FINDINGS: There are atrophic changes and mild chronic microvascular ischemic changes similar to the previous exam. There is no indication of recent infarct, although acute infarcts may not be immediately visible. There is no evidence of intracranial hemorrhage, mass effect, or midline shift. There is mild paranasal sinus disease noted. IMPRESSION: No visible acute intracranial abnormality. No hemorrhage or mass effect. Mild paranasal sinus disease noted. Electronically signed by Andrew Arnold 01/28/2017 6:55 PM
[2017-01-28] MEDS ORDERED: HEPARIN IV PRN (19:27)
[2017-01-28] MEDS: LIPITOR PO SCH (20:11)
[2017-01-28] MEDS: NORCO-7.5 PO PRN (23:11)
[2017-01-29] MEDS: MERREM 1 GM in NS 50 ML IV SCH ×3 (01:26→18:07)
[2017-01-29] MEDS: HEPARIN 25,000 UNITS/D5W 25,000 UNIT/250 ML IV.SOLN IV SCH ×2 (03:05→14:45)
[2017-01-29] MEDS: DUONEB (A & A) INH SCH ×6 (03:12→23:12)
[2017-01-29] MEDS: SODIUM CHLORIDE 0.9% INJ SCH (03:48)
[2017-01-29] MEDS: PROTONIX IV SCH (03:48)
[2017-01-29 04:45] LABS: ALLEN TEST YES; BLOOD TYPE ARTERIAL; DRAW SITE R RADIAL; METHB 1.2 % (0.0-1.5); O2(CT) 9.8 mL/dL (15.0-23.0); PO2(98.6) 65 mmHg (60-100); SAMPLE BLOOD; SAO2 96.5 % (95.0-100.0); THB 7.5 g/dL (11.5-17.4); pH(98.6) 7.44 (7.35-7.45)
[2017-01-29 04:46] LABS: MODALITY VENTIMASK; PCO2(98.6) 60 mmHg (35-45)
[2017-01-29 04:58] LABS: INR 1.37; PROTIME 14.7 Seconds (9.2-11.7)
[2017-01-29 05:19] LABS: ALBUMIN 2.4 g/dL (3.5-5.0); CALCIUM 8.2 mg/dL (8.8-10.2); POTASSIUM 4.3 mmol/L (3.5-5.1); TOTAL BILIRUBIN 3.83 mg/dL (0.20-1.00); TOTAL PROTEIN 5.3 g/dL (6.3-8.3)
[2017-01-29 05:53] LABS: HEMATOCRIT 22.6 % (42.0-52.0); HEMOGLOBIN 6.9 g/dL (14.0-18.0); MCH 33.2 PG (27-31); MCHC 30.5 g/dL (33-37); MCV 108.7 FL (81-99); MPV 10.5 FL (7.4-10.4); RBC 2.08 XMIL (4.7-6.1)
[2017-01-29] MEDS: HUMALOG SUBQ SCH ×5 (06:06→21:19)
[2017-01-29] MEDS: SYNTHROID IV SCH (06:06)
[2017-01-29] MEDS: SODIUM CHLORIDE 0.9% INJ PRN (06:07)
--- NOTE | 2017-01-29 07:25 | Diag Imaging Result Doc PS360 ---
EXAM: FLAT/UPRIGHT ABD/1 VIEW CHEST HISTORY: sbo TECHNIQUE: AP portable upright chest at 0515 COMMENT: There is cardiomegaly. The inspiration is suboptimal. Considering differences in inspiration and technique there has been no significant change since 01/28/2017. IMPRESSION: Stable chest Electronically signed by Ruben Mai 01/29/2017 7:23 AM
[2017-01-29] MEDS ORDERED: 1/2 NS 1,000 ML IV SCH (08:16)
[2017-01-29] MEDS: LOPRESSOR PO SCH ×3 (09:34→17:22)
[2017-01-29] MEDS: LASIX IV SCH ×2 (09:34→21:19)
[2017-01-29] MEDS: CORDARONE PO SCH ×2 (09:34→21:18)
--- NOTE | 2017-01-29 10:13 | PROGRESS NOTE ---
DATE: 01/29/2017 SUBJECTIVE: The patient says he feels sore. Last night, a head CT was obtained which is negative to explain any mental status changes. He denies severe abdominal pain, nausea or vomiting. OBJECTIVE: Vital signs: He is afebrile. Pulse in the 112 to 130 range. Blood pressure 103/55. Respiratory rate 20. O2 sat 99%. Urine output 1140. Cholecystostomy output 225. NG tube output 200. General: He is awake, following commands, and oriented x3. CV: Tachycardic. Respiratory: Bilateral breath sounds, no work of breathing. GI: Soft, some mild tympany, nontender, hypoactive bowel sounds. No flatus or stool in the colostomy. The right upper quadrant wound is draining serosanguineous fluid. LABORATORY: White blood cell count 23,000, hemoglobin 6.9, hematocrit 22.6, platelet count 310. PTT is greater than 200. pH 7.4, pCO2 of 60, PaO2 of 65, bicarb 36. BUN 30, creatinine 1.4, total bilirubin 3.8. IMAGING: An abdominal x-ray this morning shows air and stool in the right colon. There are some mildly dilated loops of bowel. I do not see air fluid levels. ASSESSMENT: A 76-year-old male hospitalized with sepsis, Streptococcus oralis bacteremia, possibly prosthetic valve endocarditis, status post cholecystostomy tube for possible cholecystitis, now with acute blood loss anemia, coagulopathy, and ileus versus partial small bowel obstruction. PLAN: 1. I am going to continue following his GI exam for signs of improved function so that we can remove the NG tube and resume a diet. For today, I think some ice chips and gentle bowel stim with mineral oil and milk of magnesia through the NG tube will be the plan. When I see better bowel function, we will advance the diet as tolerated. 2. For wound care, continue changing gauze packing in the open part of the wound in the right upper quadrant once or twice daily with saline-moistened gauze. 3. He needs to continue as much physical therapy as he can tolerate. 4. We need to supplement his nutrition with TPN for now. The maintenance assistant has been consulted. 5. He is getting 2 units of blood per Dr. Dougherty today. 6. Unfortunately, I think his heparin is complicating matters with bleeding and anemia. [facility] will be following the patient over the weekend until I return on Wednesday. cc: Giacomo Stover MD
[2017-01-29] MEDS ORDERED: NS 250 ML ONE (10:53)
[2017-01-29] MEDS: MILK OF MAGNESIA PO SCH ×2 (11:57→21:18)
[2017-01-29] MEDS: MINERAL OIL PO SCH ×2 (11:57→21:18)
[2017-01-29 12:01] LABS: UR CREAT RANDOM 136.8 mg/dL (14-26); UR PROT RANDOM 57.1 mg/dL
--- NOTE | 2017-01-29 14:03 | PROGRESS NOTE ---
DATE: 01/29/2017 SUBJECTIVE: The patient is resting comfortably on a Ventimask. The patient is more awake and alert today. No acute events noted overnight. OBJECTIVE: Vital Signs: Temperature 97.5 degrees, blood pressure 95/69, heart rate 117, respirations 27, O2 saturations 93% on 50% Ventimask. General: This is a morbidly obese male lying in bed in no acute distress. Head: Normocephalic atraumatic. Heart: S1, S2. Normal. Tachycardic. Lungs: Equal entry bilaterally. No crackles, no rales. Abdomen: Positive bowel sounds. Soft. There is a colostomy in place with no stool. Extremities: No edema. No cyanosis. No calf tenderness. Neuro: The patient is alert, oriented x3. LABS: White blood cell count 22, hemoglobin 6.9, hematocrit 22, platelets 312, 000. Sodium 140, potassium 4.3, chloride 96, CO2 37, BUN 30, creatinine 1.4, glucose 235, total bilirubin 3.8, AST 38, ALT 52, alkaline phosphatase 63, albumin 2.4. ASSESSMENT AND PLAN: 1. Acute hypoxemic respiratory failure. Will continue with bronchodilator therapy and antibiotics. Will attempt to wean the patient off of the Ventimask. Pulmonary is following. 2. Status post evacuation of abdominal wall hematoma. Management as per the general surgeon. 3. Anemia of acute blood loss. The patient will be transfused 2 units of packed red blood cells today. 4. Acute kidney injury. The patient's FENA is less than 1. We will avoid nephrotoxic agents and monitor the patient's volume status closely. 5. Suspected endocarditis. Continue on IV antibiotic therapy as directed by Dr. Cummins. DAWSON to be done at the discretion of the spanish teacher once the patient is more stable. 6. Ischemic cardiomyopathy. Aware. 7. Hypothyroidism. Continue on IV Synthroid. 8. Mechanical mitral valve. Patient remains on a heparin drip. Cardiology is following. 9. Morbid obesity. Aware. 10. Severe protein calorie malnutrition. The patient is currently on TPN. 11. Acute cholecystitis s/p open cholecystostomy. As per the general surgeon cc: Ofelia Dougherty MD MTDD
[2017-01-29] MEDS ORDERED: HEPARIN 25,000 UNITS/D5W 25,000 UNIT/250 ML IV.SOLN IV SCH (15:02)
[2017-01-29] MEDS: TPN ELECTROLYTES 20 ML, MAGNESIUM SULFATE 4 MEQ, POTASSIUM CHLORIDE 20 MEQ, M.V.I.-12 1... IV SCH ×7 (17:23)
--- NOTE | 2017-01-29 17:50 | PROGRESS NOTE ---
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 He also has leukocytosis. He has a cholecystostomy tube in place and had hematoma drained from around the tube yesterday. The patient was less responsive yesterday but today he had been he had been more responsive. He just grabbed for his NG tube and pulled it out now. MEDICATIONS: Currently the patient is on vancomycin and meropenem. The patient overall had been on 12 days of antibiotics. For the past 8 days of the 12 it has been vancomycin and meropenem. PHYSICAL EXAMINATION: Vital Signs: Temperature is 97.6 degrees, pulse 108, respirations 29, blood pressure 99/66. General: This is an ill-appearing, elderly male who is lethargic and is in no acute distress. Lungs: Clear to auscultation. Cardiovascular: Regular heart rate. Abdomen: Seems slightly distended. The patient on the right side has a cholecystostomy tube in place and lower in the middle he has a colostomy. LAB AND X-RAY: The patient's blood gases show a pH of 7.44, PO2 of 65, a pCO2 of 60. Creatinine is 1.4. GFR is 49. Chest x-ray shows no changes from previous one. CT scan of the head shows no acute disease. The ALT is 52. [place] [address], hemoglobin 6.9, and platelet count 310,000. ASSESSMENT AND PLAN: The patient has endocarditis and there may be some pneumonia as well. The plan is to continue vancomycin and meropenem. This is day 9 of their treatment. COMORBIDITIES: He is elderly. He has a mechanical mitral valve. He is also a diabetic. He has had dental infections and now has dental implants. cc: Sundeep Cummins MD
[2017-01-29] MEDS: LIPITOR PO SCH (21:19)
[2017-01-30] MEDS: HUMALOG SUBQ SCH ×6 (01:02→20:40)
[2017-01-30] MEDS: MERREM 1 GM in NS 50 ML IV SCH ×3 (02:03→18:01)
[2017-01-30] MEDS: DUONEB (A & A) INH SCH ×6 (03:19→23:27)
[2017-01-30] MEDS: PROTONIX IV SCH (04:54)
[2017-01-30 05:06] LABS: ALLEN TEST YES; BE 16.8 mmoll (-3.0-3.0); BLOOD TYPE ARTERIAL; DRAW SITE R RADIAL; METHB 0.8 % (0.0-1.5); O2(CT) 11.8 mL/dL (15.0-23.0); PO2(98.6) 78 mmHg (60-100); SAMPLE BLOOD; SAO2 98.2 % (95.0-100.0); THB 8.9 g/dL (11.5-17.4)
[2017-01-30 05:07] LABS: MODALITY CANNULA; PCO2(98.6) 71 mmHg (35-45)
[2017-01-30 05:56] LABS: HEMATOCRIT 25.6 % (42.0-52.0); MCH 32.8 PG (27-31); MCHC 31.3 g/dL (33-37); MCV 104.9 FL (81-99); MPV 10.6 FL (7.4-10.4); RBC 2.44 XMIL (4.7-6.1)
[2017-01-30 06:07] LABS: INR 1.21; PROTIME 12.9 Seconds (9.2-11.7)
[2017-01-30 06:12] LABS: ALBUMIN 2.6 g/dL (3.5-5.0); CALCIUM 8.3 mg/dL (8.8-10.2); MAGNESIUM 2.8 mg/dL (1.5-2.7); POTASSIUM 3.8 mmol/L (3.5-5.1); TOTAL BILIRUBIN 4.47 mg/dL (0.20-1.00); TOTAL PROTEIN 5.6 g/dL (6.3-8.3)
[2017-01-30] MEDS: HEPARIN 25,000 UNITS/D5W 25,000 UNIT/250 ML IV.SOLN IV SCH ×2 (06:32→18:01)
[2017-01-30] MEDS: SYNTHROID IV SCH (06:32)
[2017-01-30] MEDS: LOPRESSOR PO SCH ×3 (08:34→16:51)
[2017-01-30] MEDS: CORDARONE PO SCH ×2 (08:34→20:40)
[2017-01-30] MEDS: MINERAL OIL PO SCH ×2 (08:34→20:40)
[2017-01-30] MEDS: MILK OF MAGNESIA PO SCH ×2 (08:34→20:40)
[2017-01-30] MEDS: LASIX IV SCH ×2 (11:07→21:37)
[2017-01-30] MEDS ORDERED: 1/2 NS 1,000 ML IV SCH (11:38)
[2017-01-30] MEDS ORDERED: NS 0 ML ONE (12:09)
[2017-01-30] MEDS: VANCOMYCIN 1.5 GM in NS 250 ML IV SCH (12:14)
--- NOTE | 2017-01-30 13:37 | PROGRESS NOTE ---
DATE: 01/30/2017 SUBJECTIVE: The patient is awake and alert and sitting up in a chair. He states that he would like to try and eat something. No acute events noted overnight. OBJECTIVE: Vital Signs: Temperature 97 degrees, blood pressure 112/56, heart rate 110, respirations 25, O2 saturations 97% on 4 L nasal cannula. General: This is a morbidly obese male sitting in a chair in no acute distress. Head: Normocephalic, atraumatic. Heart: S1, S2. Normal. Tachycardic. Lungs: Equal air entry bilaterally. No crackles. No rales. Abdomen: Obese, soft, nontender, nondistended. Extremities: No edema. No cyanosis. No calf tenderness. Neurologic: The patient is alert and oriented x3. LABS: White blood cell count 22, hemoglobin 8, hematocrit 25, platelets 345, 000. ABG, pH of 7.4, pCO2 71, PO2 78, bicarb 38, sodium 141, potassium 3.8, chloride 95, CO2 38 , BUN 41, creatinine 1.5, glucose 199, AST 43, ALT 43, total bilirubin 4.4. ASSESSMENT AND PLAN: 1. Streptococcal prosthetic valve endocarditis. Continue on the current IV antibiotic regimen as directed by Dr. Cummins. 2. Status post evacuation of an abdominal wall hematoma. Management as per the general surgeon. 3. Anemia of acute blood loss. The patient's hemoglobin and hematocrit is improved after receiving 2 units of packed red blood cells yesterday. Continue to monitor the hemoglobin and hematocrit closely. 4. Acute kidney injury. We will start the patient on gentle IV fluid hydration and monitor the urine output closely. 5. Ischemic cardiomyopathy. Aware. 6. Hypothyroidism. Continue on IV Synthroid. 7. Mechanical mitral valve replacement. Continue with the heparin drip. Cardiology is following. 8. Morbid obesity. Aware. 9. Severe protein calorie malnutrition. The patient is currently NPO. The patient is receiving TPN. 10. Leukocytosis. Unchanged. Continue on the current IV antibiotic therapy. 11. Acute cholecystitis s/p open cholecystostomy. As per the general surgeon. The plan of care was discussed with the patient's daughter and at the bedside this afternoon. cc: Ofelia Dougherty MD MTDD
--- NOTE | 2017-01-30 13:52 | PROGRESS NOTE ---
DATE: 01/30/2017 SUBJECTIVE: The patient continues without chest discomfort or dyspnea. He continues on intravenous heparin protocol. OBJECTIVE: Vital Signs: Blood pressure 112/56, heart rate 110 and regular. There is no significant jugular distention. Auscultation of the chest reveals coarse breath sounds bilaterally. Cardiac exam reveals a regular rate and rhythm with crisp mechanical 1st heart sound. Abdomen is distended. Bowel sounds audible. Extremities are without edema. LABORATORY DATA: Hemoglobin of 8.0 which is stable. IMPRESSION: 1. Possible endocarditis. 2. Status post mitral valve replacement with mechanical prosthesis. 3. Left ventricular systolic dysfunction. 4. Anemia. Hemoglobin stable. 5. Status post cholecystostomy, this admission. 6. Recent sepsis with streptococcus species. 7. Recent cholecystitis. RECOMMENDATIONS: 1. Continue intravenous heparin as tolerated and as clinical situation permits. 2. Continue supportive care and antibiotics to cover the possibility of prosthetic valve endocarditis. cc: Michael Shetty MD
--- NOTE | 2017-01-30 14:16 | Diag Imaging Result Doc PS360 ---
EXAM: FLAT/UPRIGHT ABD/1 VIEW CHEST INDICATION: sbo vs ileus TECHNIQUE: 4 views COMPARISON: 01/29/2017 FINDINGS: Gas-distended loops of bowel are essentially stable. There is no evidence of large volume free abdominal gas. The abdomen is grossly stable, otherwise. Right central line is in stable position. Inspiration is suboptimal. Increased interstitial markings suggesting edema +/- pneumonia is essentially stable given differences in inspiration. No definite new consolidation is appreciated. Cardiac silhouette is stable. IMPRESSION: Essentially stable chest and abdomen. Electronically signed by Zachary Blanchard 01/30/2017 2:13 PM
--- NOTE | 2017-01-30 16:00 | PROGRESS NOTE ---
DATE: 01/30/2017 SUBJECTIVE: Mr. Powers is status post open drainage using a cholecystostomy tube of the gallbladder. His postoperative course has been complicated by bleeding. He has a mechanical heart valve and requires anticoagulation, and he has had bleeding from his wound and intra- abdominally. He now has a postoperative ileus and his abdomen is distended. He has pulled out his NG tube. He is being treated with IV antibiotics for bacteremia possibly related to an infected heart valve. He is being treated with TPN for nutrition because he cannot eat yet. He has an end colostomy which has no output. OBJECTIVE: His heart rate is 124-127, blood pressure 100/79, O2 saturation 96%. He is sitting up in a chair but is confused. He has a Laws catheter tube in place. His cholecystostomy tube appears to be draining. I removed the packing from his wound and venous blood came out. We will repack and dress his wound. We will leave his NG tube out for now. I had a long discussion with his and daughter. They are concerned about his hospital course. I went over his recent CT scan and all his care and discussed that with the family. His white blood cell count remains at 22. Hematocrit at 25%. His BUN and creatinine are 41 and 1.5. Sugars have been 240. Liver function tests: His total bilirubin is elevated to 4.47, his AST and ALT and alkaline phosphatase are within normal limits. His PTT is between 64 and 100. His arterial blood gas was satisfactory. His lactate is 1.5. Base excess is 16.8. An abdominal film was nonspecific. We will continue supportive care. We will hold on NG tube at this time. cc: Edith Sanches MD
[2017-01-30] MEDS: TPN ELECTROLYTES 20 ML, MAGNESIUM SULFATE 4 MEQ, POTASSIUM CHLORIDE 20 MEQ, M.V.I.-12 1... IV SCH ×7 (16:53)
[2017-01-30] MEDS ORDERED: HEPARIN 25,000 UNITS/D5W 25,000 UNIT/250 ML IV.SOLN IV SCH (18:03)
[2017-01-30] MEDS ORDERED: LASIX IV ONE (18:36)
[2017-01-30] MEDS: LIPITOR PO SCH (20:40)
[2017-01-31] MEDS: HUMALOG SUBQ SCH ×6 (01:17→20:19)
[2017-01-31] MEDS: MERREM 1 GM in NS 50 ML IV SCH ×3 (01:19→17:57)
[2017-01-31] MEDS: DUONEB (A & A) INH SCH ×5 (03:26→23:13)
[2017-01-31] MEDS: PROTONIX IV SCH (04:43)
[2017-01-31 04:57] LABS: ALLEN TEST YES; BE 19.1 mmoll (-3.0-3.0); BLOOD TYPE ARTERIAL; DRAW SITE R RADIAL; METHB 0.7 % (0.0-1.5); PO2(98.6) 93 mmHg (60-100); SAMPLE BLOOD; THB 7.3 g/dL (11.5-17.4); pH(98.6) 7.45 (7.35-7.45)
[2017-01-31 04:59] LABS: PCO2(98.6) 65 mmHg (35-45)
[2017-01-31 05:00] LABS: MODALITY BI PAP
[2017-01-31 05:49] LABS: HEMOGLOBIN 6.6 g/dL (14.0-18.0); MCH 32.4 PG (27-31); MCV 107.8 FL (81-99); MPV 10.3 FL (7.4-10.4); RBC 2.04 XMIL (4.7-6.1)
[2017-01-31 05:51] LABS: INR 1.24; PROTIME 13.2 Seconds (9.2-11.7)
[2017-01-31 06:11] LABS: ALBUMIN 2.3 g/dL (3.5-5.0); CALCIUM 7.8 mg/dL (8.8-10.2); MAGNESIUM 3.2 mg/dL (1.5-2.7); TOTAL BILIRUBIN 3.83 mg/dL (0.20-1.00); TOTAL PROTEIN 5.3 g/dL (6.3-8.3)
[2017-01-31] MEDS ORDERED: HEPARIN 25,000 UNITS/D5W 25,000 UNIT/250 ML IV.SOLN IV SCH ×2 (07:15→20:00)
[2017-01-31] MEDS: SYNTHROID IV SCH (07:25)
--- NOTE | 2017-01-31 07:52 | Diag Imaging Result Doc PS360 ---
EXAM: CHEST-PORTABLE INDICATION: respiratory failure TECHNIQUE: One view COMPARISON: 01/30/2017 FINDINGS: Right central line is in stable position. Inspiration remains suboptimal. Increased interstitial markings are unchanged bilaterally. There are no new consolidations. Cardiac silhouette is stable. IMPRESSION: Stable chest. Electronically signed by Zachary Blanchard 01/31/2017 7:49 AM
[2017-01-31] MEDS: LOPRESSOR PO SCH ×3 (08:34→17:57)
[2017-01-31] MEDS: CORDARONE PO SCH ×2 (08:34→20:19)
[2017-01-31] MEDS: MINERAL OIL PO SCH ×2 (08:34→20:23)
[2017-01-31] MEDS: MILK OF MAGNESIA PO SCH ×2 (08:34→20:19)
[2017-01-31] MEDS ORDERED: NS 250 ML ONE ×2 (10:31→20:01)
[2017-01-31] MEDS: LASIX IV SCH ×2 (10:34→21:56)
--- NOTE | 2017-01-31 11:28 | PROGRESS NOTE ---
DATE: 01/31/2017 Mr. Powers is a 76-year-old, overweight, white male who has a mechanical prosthetic valve. He has also undergone open placement of a cholecystostomy tube per Dr. Stover and continues to bleed from his open wound. This wound was open because of a hematoma involving his anterior abdominal wall. He is significantly anticoagulated with a PTT of 90. His abdomen remains distended. He had some hard stool in his ostomy but really no gas. His lateral aspect of his right upper quadrant wound is open with some oozing. His heart rate is 108, blood pressure, room 109/77, O2 saturation 98%. He has a Laws and his urine output has been adequate. He does not have an NG tube in. He has pulled that out. His hematocrit is 22. Plans are for more transfusion. His BUN and creatinine are 49 and 1.5. He is receiving peripheral nutrition and antibiotics. PLAN: Back off on his heparin drip so that we can stop the persistent oozing and need for transfusion. His cholecystostomy tube is to gravity drain. His white blood cell count is 15. I have discussed his care again with his at the bedside today. cc: Edith Sanches MD
--- NOTE | 2017-01-31 11:31 | PROGRESS NOTE ---
DATE: 01/31/2017 SUBJECTIVE: Patient denies shortness of breath or chest discomfort. On supplemental oxygen per nasal cannula. He continued to ooze blood from abdominal drain site. OBJECTIVE: Vital Signs: Include a heart rate of 110-120 beats per minute. Blood pressure stable jugular venous distention is not appreciated. Chest: Clear to auscultation anteriorly. Cardiac Exam: Reveals an irregular tachycardia with crisp mechanical 1st heart sound. Gallop could not be appreciated. Abdomen: Distended. Bowel sounds audible. There is evidence of blood drainage in abdominal dressing. LAB DATA: Includes hemoglobin 6.6 which is decreased from 8.0. Hematocrit 22 which is decreased from 25.6. PTT 98.7. Previous PTT 91.9. Prior to that 86.4. IMPRESSIONS: 1. Possible endocarditis. 2. Status post mitral valve replacement with mechanical prosthesis. 3. Left ventricular systolic dysfunction. 4. Anemia. Patient continues to have decrease hematocrit on intravenous heparin per current protocol. 5. Status post cholecystostomy this admission. 6. Recent sepsis with streptococcus species. 7. Recent cholecystitis. RECOMMENDATIONS: 1. I would revise heparin protocol to less in intensity of anticoagulation in hopes that tendency for bleeding will subside. 2. Continue supportive care and antibiotics to cover the possibility of prosthetic valve endocarditis. cc: Michael Shetty MD
--- NOTE | 2017-01-31 16:25 | PROGRESS NOTE ---
DATE: 01/31/2017 SUBJECTIVE: The patient is currently resting comfortably on nasal cannula. He was on BiPAP last night. The patient continues to have oozing from the abdominal incision. OBJECTIVE: Vital Signs: Temp 98.1 degrees, heart rate 130, respirations 19, blood pressure 92/54, O2 saturation is 98% on 4 L nasal cannula. General: This is a morbidly obese male, lying in bed, in no acute distress. Head: Normocephalic atraumatic. Heart: S1, S2. Normal. Tachycardic. Lungs: Air entry bilaterally. No crackles. No rales. Abdomen: Positive bowel sounds. Distended. The patient does have a drainage tube coming out of the right side of his abdomen with bloody drainage. Extremities: No edema. No cyanosis. No calf tenderness. Neurologic: The patient is awake but with intermittent confusion. LABS: White blood cell count 15, hemoglobin 6.6, hematocrit 22, platelets 315, 000. Sodium 140, potassium 4, chloride 96, CO2 31, BUN 49, creatinine 1.5, glucose 231, phosphorus 2.6, total bilirubin 3.8, AST 39, ALT 34, alkaline phosphatase 56. ASSESSMENT AND PLAN: 1. Streptococcal prosthetic valve endocarditis. Continue on IV antibiotic therapy as directed by Dr. Cummins. 2. Anemia of acute blood loss. Mainly coming from the abdominal wound due to heparin drip. Will transfuse 1 unit of prbcs today. 3. Status post evacuation of an abdominal wall hematoma. Management as per the general surgeon. 4. Acute kidney injury. Stable. Will continue to monitor the patient's urine output closely and avoid nephrotoxic agents. 5. Mechanical mitral valve replacement. Will continue on the heparin drip as directed by the gandy dancer. 6. Hypothyroidism. Continue on IV Synthroid. 7. Ischemic cardiomyopathy. Aware. 8. Morbid obesity. Aware. 9. Severe protein calorie malnutrition. The patient is currently NPO but is receiving TPN. 10. Leukocytosis. Improved. Continue on IV antibiotic therapy. 11. Acute cholecystitis status post open cholecystostomy. Management as per the general surgeon. cc: Ofelia Dougherty MD MTDD
[2017-01-31 17:03] LABS: HEMATOCRIT 22.7 % (42.0-52.0); HEMOGLOBIN 6.9 g/dL (14.0-18.0)
[2017-01-31] MEDS: TPN ELECTROLYTES 20 ML, MAGNESIUM SULFATE 4 MEQ, POTASSIUM CHLORIDE 20 MEQ, M.V.I.-12 1... IV SCH ×7 (17:57)
--- NOTE | 2017-01-31 19:04 | PROGRESS NOTE ---
DATE: 01/31/2017 This is in the evening. We still has some bleeding involving his wound. His last PTT was 80 so we stopped the heparin for 4 hours and will restart it at 9 mL an hour in hopes to get his PTT down lower in the 50-60 range at least to stop this oozing from his wound and his requirement for blood products. He remains hemodynamically stable and awake. His family was not present at the bedside this evening. cc: Edith Sanches MD
[2017-01-31] MEDS: LIPITOR PO SCH (20:20)
[2017-02-01] MEDS: HALDOL IV PRN
[2017-02-01] MEDS: HUMALOG SUBQ SCH ×6 (00:01→20:31)
[2017-02-01] MEDS: VANCOMYCIN 1.5 GM in NS 250 ML IV SCH (00:03)
[2017-02-01] MEDS: MERREM 1 GM in NS 50 ML IV SCH ×3 (01:38→18:04)
[2017-02-01 01:41] LABS: HEMATOCRIT 24.4 % (42.0-52.0); HEMOGLOBIN 7.5 g/dL (14.0-18.0)
[2017-02-01] MEDS: DUONEB (A & A) INH SCH ×2 (03:36→07:52)
[2017-02-01] MEDS: PROTONIX IV SCH (03:40)
[2017-02-01] MEDS: SODIUM CHLORIDE 0.9% INJ SCH (03:40)
[2017-02-01 04:48] LABS: ALLEN TEST YES; BE 16.6 mmoll (-3.0-3.0); BLOOD TYPE ARTERIAL; DRAW SITE R RADIAL; METHB 0.9 % (0.0-1.5); O2(CT) 16.9 mL/dL (15.0-23.0); PO2(98.6) 133 mmHg (60-100); SAMPLE BLOOD; THB 12.5 g/dL (11.5-17.4); pH(98.6) 7.46 (7.35-7.45)
[2017-02-01 04:50] LABS: MODALITY BI PAP; PCO2(98.6) 61 mmHg (35-45)
[2017-02-01 05:12] LABS: HEMATOCRIT 23.2 % (42.0-52.0); HEMOGLOBIN 7.2 g/dL (14.0-18.0); MCH 31.4 PG (27-31); MCV 101.3 FL (81-99); MPV 10.3 FL (7.4-10.4); RBC 2.29 XMIL (4.7-6.1)
[2017-02-01 05:32] LABS: INR 1.19; PROTIME 12.6 Seconds (9.2-11.7)
[2017-02-01 05:48] LABS: ALBUMIN 2.1 g/dL (3.5-5.0); CALCIUM 7.9 mg/dL (8.8-10.2); POTASSIUM 4.2 mmol/L (3.5-5.1); TOTAL BILIRUBIN 4.95 mg/dL (0.20-1.00); TOTAL PROTEIN 5.1 g/dL (6.3-8.3)
[2017-02-01] MEDS: SYNTHROID IV SCH (06:09)
--- NOTE | 2017-02-01 07:16 | Diag Imaging Result Doc PS360 ---
CHEST-PORTABLE - 02/01/2017 INDICATION: respiratory failure TECHNIQUE: COMPARISON: 01/31/2017 FINDINGS: Stable central line. Stable pacemaker and sternotomy changes. Stable significant cardiomegaly and pulmonary vascular congestion. There is slight decrease in the background pulmonary edema throughout the lungs. No new infiltrates. IMPRESSION: Improvement in the hazy bilateral infiltrates compatible with improving pulmonary edema. Electronically signed by Willi Jackson 02/01/2017 7:14 AM
[2017-02-01 07:21] LABS: MAGNESIUM 3.3 mg/dL (1.5-2.7)
[2017-02-01] MEDS: CORDARONE PO SCH ×2 (09:09→20:31)
[2017-02-01] MEDS: LOPRESSOR PO SCH ×3 (09:17→18:02)
[2017-02-01] MEDS: LASIX IV SCH ×2 (10:24→21:05)
[2017-02-01] MEDS: MINERAL OIL PO SCH ×2 (10:24→20:31)
[2017-02-01] MEDS: HEPARIN 25,000 UNITS/D5W 25,000 UNIT/250 ML IV.SOLN IV SCH (10:25)
[2017-02-01] MEDS: NORCO-7.5 PO PRN (10:48)
[2017-02-01] MEDS: XOPENEX NEB INH SCH ×4 (11:59→23:12)
--- NOTE | 2017-02-01 13:19 | PROGRESS NOTE ---
DATE: 02/01/2017 SUBJECTIVE: The patient is not complaining of any new problems. He says that he hurts all over, but it is not too bad. He denies nausea or vomiting. He is hungry, and he has had some more output into his colostomy over the weekend in both gas and stool. He pulled his NG tube out over the weekend as well. He does continue to have bleeding that is saturating his gauze in the right upper quadrant wound. The heparin drip was stopped some over the weekend and then restarted without a bolus at a lower rate to try to stop the bleeding. OBJECTIVE: Vital Signs: Temperature 98.3 degrees, pulse 115, O2 saturation 97%, blood pressure 104/54. Urine output 1350 mL. Cholecystostomy output 270 mL. General: He is arousable. He does follow commands. He is in no acute distress. He is oriented to his name and place. HEENT: Extraocular muscles are intact. Pupils are equal, round, and reactive to light. Cardiovascular: Tachycardic and regular. Respiratory: Bilateral breath sounds. No rales or wheezing. Gastrointestinal: Soft, mildly distended and tympanic. He does have a few more bowel sounds now. He is nontender. The right upper quadrant wound was examined. There is quite a bit of thin bloody fluid, a mixture of ascites or seroma and old venous blood. I evacuated this, examined the wound and could find no active singular point of bleeding. After removing the bloody gauze, it appears to be mostly dry. We then repacked the wound. There is no surrounding erythema or purulence noted. LABORATORY DATA: White blood cell count 14,000, hemoglobin 7.2, hematocrit 23, platelet count 299,000. PTT this morning 33. Sodium 139, potassium 4.2, chloride 96, CO2 of 40, BUN 52, creatinine 1.3, glucose 201, total bilirubin 4.9, AST 50, ALT 30, alkaline phosphatase 51. IMAGING STUDIES: A chest x-ray today shows improvement in hazy bilateral infiltrates compatible with improving pulmonary edema. ASSESSMENT AND PLAN: A 76-year-old male who is status post cholecystostomy tube placement for possible acute cholecystitis. This was in the setting of bacteremia, in fact a streptococcal the bacteremia which was found out later. Currently, he is being treated for possible mitral valve endocarditis. He is being anticoagulated off and on with a heparin drip. This is causing difficulty with bleeding from his abdominal wound. There are no surgical plans for the wound other than local wound care. His bleeding needs to be controlled medically. While I am going to increase the heparin drip just a little today and try to reach a goal of partial thromboplastin time of 50 to 60 for right now until we can get him to clot his wound. We will transfuse blood as needed. Today I am going to start him on a clear liquid diet, as it seems like his ileus is improving. We will advance his diet as tolerated slowly. He should continue total parenteral nutrition for now. I had a long discussion with the family and updated them on all of these fronts and answered their questions. There is some continued concern about the need for a transesophageal echocardiogram to guide the need and duration of his current antibiotics, and ultimately, if there is a problem with the valve, what would the cardiovascular surgery's recommendations be. This perhaps is a reason to seek a transfer for a cardiovascular surgery evaluation. I will defer to the hospitalist and the trencher driver in regards to this. cc: Giacomo Stover MD
--- NOTE | 2017-02-01 14:18 | PROGRESS NOTE ---
DATE: 02/01/2017 SUBJECTIVE: The patient is awake and alert this morning. He did have a bowel movement last night. The patient's abdominal wound has slowed down. OBJECTIVE: Vital Signs: Temperature 98 degrees, blood pressure 104/54, heart rate 113, respirations 14. O2 saturations 96% on 3 L nasal cannula. General: This is a morbidly obese male, lying in bed, in no acute distress. Head: Normocephalic, atraumatic. Heart: S1, S2. Normal. Tachycardic. Lungs: Equal air entry bilaterally. Coarse breath sounds. Abdomen: There is a dressing applied to the right side of the patient's abdomen. Positive bowel sounds. Soft. Extremities: No edema. No cyanosis. No calf tenderness. Neurologic: The patient is awake and alert. He is able to move all 4 extremities. LABS: White blood cell count 14, hemoglobin 7.5, hematocrit 25, platelets 299, 000. ABG pH of 7.46, pCO2 61, pO2 133, bicarb 37. Sodium 139, potassium 4.2, chloride 96, CO2 40, BUN 52, creatinine 1.3. Glucose 201. Calcium 7.9, phosphorus 2.6. Magnesium 3.3. Total bilirubin 4.9. AST 50, ALT 30, alkaline phosphatase 51, albumin 2.1. ASSESSMENT AND PLAN: 1. Streptococcal prostatic mitral valve endocarditis. Continue on the current IV antibiotic regimen. 2. Anemia of acute blood loss. The patient does have oozing from his abdominal wound site, but he does require heparin due to his valve. We will continue to monitor this closely and transfuse p.r.n. 3. Status post evacuation of an abdominal wall hematoma. Management as per the general surgeon. 4. Acute kidney injury. Improved. We will continue to monitor the patient's urine output and volume status closely. We will avoid nephrotoxic agents. 5. Mechanical mitral valve replacement. Continue on a heparin drip. 6. Hypothyroidism. Continue on IV Synthroid. 7. Ischemic cardiomyopathy. Aware. 8. Morbid obesity. Aware. 9. Leukocytosis. Slowly improving. Continue on IV antibiotic therapy. 10. Acute cholecystitis, status post open cholecystostomy tube placement. Management as per the general surgeon. 11. Volume overload. The patient remains on Lasix. 12. Gastrointestinal prophylaxis. Continue on IV Protonix. 13. Protein calorie malnutrition. Continue on TPN. I spoke to the salesperson sheet music Artificial Flowers Supervisor at [facility] this evening and he stated that the patient does not meet ICU criteria at their facility. May need to consider calling [facility] tomorrow to see if they will accept the patient. cc: Ofelia Dougherty MD MTDD
[2017-02-01] MEDS: SODIUM PHOSPHATE IV SCH ×6 (18:36)
[2017-02-01] MEDS: [UNRECOGNIZED DRUG - OTHER] IV SCH ×6 (18:36)
[2017-02-01] MEDS: HUMULIN R IV SCH ×6 (18:36)
[2017-02-01] MEDS: TPN ELECTROLYTES IV SCH ×6 (18:36)
[2017-02-01] MEDS: TPN ELECTROLYTES 20 ML, MAGNESIUM SULFATE 4 MEQ, POTASSIUM CHLORIDE 20 MEQ, M.V.I.-12 1... IV SCH ×7 (18:42)
[2017-02-01] MEDS: LIPOSYN 20% 250 ML IV SCH (20:31)
[2017-02-01] MEDS: LIPITOR PO SCH (20:31)
[2017-02-01 22:55] LABS: HEMATOCRIT 23.3 % (42.0-52.0); HEMOGLOBIN 7.1 g/dL (14.0-18.0)
[2017-02-02] MEDS: HALDOL IV PRN (00:07)
[2017-02-02] MEDS: HUMALOG SUBQ SCH ×6 (00:08→20:05)
[2017-02-02] MEDS: MERREM 1 GM in NS 50 ML IV SCH ×3 (03:08→17:54)
[2017-02-02] MEDS: SODIUM CHLORIDE 0.9% INJ SCH (03:16)
[2017-02-02] MEDS: PROTONIX IV SCH (03:16)
--- NOTE | 2017-02-02 03:41 | PROGRESS NOTE ---
DATE: 02/01/2017 PRESENT ILLNESS: The patient, I believe, has streptococcal prosthetic valve endocarditis. His leukocytosis has improved. He has a cholecystostomy tube in place. I do not think his gallbladder should be causing any leukocytosis. Today, the patient is very responsive. MEDICATIONS: Patient is on a combination of meropenem and vancomycin. The patient has been on antibiotics for a total of 15 days of which 11 of the days had been on vancomycin and meropenem. PHYSICAL EXAMINATION: Vital Signs: Temperature is 96.4 degrees, pulse 115, respirations 14, blood pressure 116/58. General: This is an obese, elderly male who is in no acute distress. Lungs: Clear to auscultation. Cardiovascular: Regular heart rate. Abdomen: Soft and nontender. There is a functioning colostomy in place and a cholecystostomy tube in place. Chest: The patient's pacemaker site is not swollen or tender. LAB AND X-RAY: Chest x-ray shows improvement of pulmonary edema. Blood and urine cultures remain negative. The patient's creatinine is 1.3. GFR is 54. CBC shows a white count of 14,280, hemoglobin 7.5, and a platelet count of 299,000. Blood gases show a pH of 7.46, a PO2 of 133, a pCO2 of 61. Patient's bilirubin is 4.95. ASSESSMENT AND PLAN: I think the patient has endocarditis. It is difficult for me to tell whether he has pneumonia or pulmonary edema, or a combination of both. COMORBIDITIES: He is elderly. He has a mechanical mitral valve. He is a diabetic. He has dental implants which may have been the origin of the patient's streptococcal bacteremia which may have caused the patient's post mitral valve replacement endocarditis. cc: Sundeep Cummins MD
[2017-02-02] MEDS: XOPENEX NEB INH SCH ×6 (03:44→23:10)
[2017-02-02 04:44] LABS: ALLEN TEST YES; BE 20.2 mmoll (-3.0-3.0); BLOOD TYPE ARTERIAL; DRAW SITE R RADIAL; PO2(98.6) 113 mmHg (60-100); SAMPLE BLOOD; THB < 3.0 g/dL (11.5-17.4); pH(98.6) 7.52 (7.35-7.45)
[2017-02-02 04:47] LABS: MODALITY BI PAP; PCO2(98.6) 57 mmHg (35-45)
[2017-02-02 04:50] LABS: HEMATOCRIT 21.2 % (42.0-52.0); HEMOGLOBIN 6.4 g/dL (14.0-18.0); MCH 32.5 PG (27-31); MCHC 30.2 g/dL (33-37); MCV 107.6 FL (81-99); RBC 1.97 XMIL (4.7-6.1)
[2017-02-02 04:54] LABS: INR 1.17; PROTIME 12.4 Seconds (9.2-11.7)
[2017-02-02 05:37] LABS: MAGNESIUM 3.3 mg/dL (1.5-2.7)
[2017-02-02] MEDS: SYNTHROID IV SCH (06:13)
[2017-02-02] MEDS: SODIUM CHLORIDE 0.9% INJ PRN (06:13)
[2017-02-02 07:15] LABS: PREALBUMIN 6.7 mg/dL (20-40)
[2017-02-02] MEDS ORDERED: NS 250 ML ONE ×2 (07:30→13:19)
[2017-02-02 07:39] LABS: ALBUMIN 2.2 g/dL (3.5-5.0); CALCIUM 7.9 mg/dL (8.8-10.2); POTASSIUM 4.4 mmol/L (3.5-5.1); TOTAL BILIRUBIN 3.94 mg/dL (0.20-1.00); TOTAL PROTEIN 5.4 g/dL (6.3-8.3)
[2017-02-02] MEDS: CORDARONE PO SCH ×2 (09:19→20:05)
[2017-02-02] MEDS: MINERAL OIL PO SCH ×2 (09:20→20:10)
[2017-02-02] MEDS: LOPRESSOR PO SCH ×3 (09:20→17:06)
[2017-02-02] MEDS: LASIX IV SCH ×2 (09:55→22:07)
[2017-02-02] MEDS: HEPARIN 25,000 UNITS/D5W 25,000 UNIT/250 ML IV.SOLN IV SCH (10:10)
--- NOTE | 2017-02-02 10:11 | Diag Imaging Result Doc PS360 ---
EXAM: FLAT/UPRIGHT ABD/1 VIEW CHEST INDICATION: abdominal distention TECHNIQUE: 3 views COMPARISON: 01/30/2017 FINDINGS: Nonspecific mild to moderately gas-distended loops of small bowel persist and are very similar to the previous study. There is no evidence of large volume free abdominal gas. Right central line is stable. Increased interstitial markings suggesting edema have worsened slightly during the interval. Cardiac silhouette is prominent but stable. The central vasculature is somewhat prominent suggesting pulmonary venous congestion. IMPRESSION: 1.Approximately stable gas-distended loops of small bowel. 2.Suggestion of modest worsening of pulmonary edema. Electronically signed by Zachary Blanchard 02/02/2017 10:08 AM
[2017-02-02] MEDS: VANCOMYCIN 1.2 GM in NS 250 ML IV SCH (11:07)
[2017-02-02] MEDS ORDERED: LASIX IV ONE (11:45)
[2017-02-02] MEDS: NORCO-7.5 PO PRN (13:58)
--- NOTE | 2017-02-02 16:35 | PROGRESS NOTE ---
DATE: 02/02/2017 SUBJECTIVE: The patient at 1st says he does not feel too bad today but also admits to feeling rough. He denies nausea or vomiting. He says he has been able to drink some clear liquids. He is also apparently being transferred to [facility] for further evaluation and care, specifically more a cardiovascular surgery consultation and opinion on his possible infected prosthetic valve. He has continued to have bloody drainage from his right upper quadrant incision. He is anemic again this morning and receiving blood today. OBJECTIVE: Vital signs: His pulse is 101, blood pressure 98/58, O2 saturation 98%. General: He is alert and oriented x3. No acute distress. CARDIOVASCULAR: Mildly tachycardic and regular. Respiratory: Bilateral breath sounds. No work of breathing. GI: Soft, nontender, nondistended. He has a few bowel sounds. His right upper quadrant dressing has recently been changed and is clean and dry. The cholecystostomy tube is intact with bilious drainage. LABORATORY: Evaluation for today was reviewed. BUN 51, creatinine 1.3. Hemoglobin 6.4, hematocrit 21, platelet count 256,000. IMAGING: An abdominal x-ray today shows some persistent stable gas distended loops of bowel. ASSESSMENT AND PLAN: This is a 76-year-old male with multiple issues, most acutely right now he is being treated for possible infected prosthetic heart valve. He is status post cholecystostomy tube placed urgently for concern of acute cholecystitis and septic shock. He has been restarted on a heparin drip postoperatively and is having trouble with bleeding through his right upper quadrant wound. He does not appear to have surgical bleeding in my estimation. I would recommend continued wound packing and reassessment every day or 2 and careful judicious use of heparin and transfusion of blood products as necessary. We have been unable to obtain a DAWSON for evaluation of the bowel secondary to concerns of his postoperative gastrointestinal ileus which would necessitate endotracheal intubation for the test and we are concerned about prolonged mechanical ventilation respiratory failure. As of this afternoon there are plans in place to transfer to [facility] for further evaluation and care as mentioned above. I would continue to recommend protection of the cholecystostomy tube for a full 6 weeks from the date of surgery. If I can be of any further assistance, please do not hesitate to call my office, [phone]. cc: Giacomo Stover MD
[2017-02-02] MEDS: LIPOSYN 20% 250 ML IV SCH (17:38)
[2017-02-02] MEDS: SODIUM PHOSPHATE IV SCH ×6 (17:39)
[2017-02-02] MEDS: [UNRECOGNIZED DRUG - OTHER] IV SCH ×6 (17:39)
[2017-02-02] MEDS: HUMULIN R IV SCH ×6 (17:39)
[2017-02-02] MEDS: TPN ELECTROLYTES IV SCH ×6 (17:39)
--- NOTE | 2017-02-02 19:14 | PROGRESS NOTE ---
DATE: 02/02/2017 PRESENT ILLNESS: The patient has streptococcal prosthetic mitral valve endocarditis. He also has a leukocytosis which continues to improve. He has a cholecystostomy tube in place. MEDICATIONS: The patient has received a total of 16 days of antibiotics of which 12 of the days have been while the patient is on vancomycin and meropenem. PHYSICAL EXAMINATION: Vital Signs: Temperature is 97.9 degrees, pulse 105, respirations 18, pressure 107/60. Generally: This is an obese, chronically ill-appearing, elderly male. He is lethargic tonight. Lungs: Clear to auscultation. Cardiovascular: Regular heart rate. Abdomen: Soft and not tender. Patient has a colostomy in place as well as a cholecystostomy tube in place. Neurologic: Patient is lethargic tonight. He is not talking and he did not follow request to move his extremities. Musculoskeletal: Chest the patient has a pacemaker present on a it which is not swollen or erythematous. LABORATORY AND X-RAY: CBC shows a white count of 13,420, hemoglobin 6.4 and platelet count 256,000. Arterial blood gases show a pH of 7.52, a PO2 of 113, pCO2 of 57. Creatinine is 1.3. GFR is 54. ASSESSMENT AND PLAN: 1. The patient has endocarditis. Leukocytosis is improving indicating that there may be a an additional infection in this patient such as pneumonia. 2. Comorbidities: He is elderly. He has a mechanical mitral valve. He is diabetic he has dental implants which may be infected and the source of his original streptococcal bacteremia. cc: Sundeep Cummins MD
[2017-02-02] MEDS: LIPITOR PO SCH (20:05)
[2017-02-02 20:18] LABS: BASO% 0.9 % (0.0-0.8); EOS# 0.35 X1000 (0.0-0.7); EOS% 2.2 % (0.0-10.0); HEMATOCRIT 27.8 % (42.0-52.0); HEMOGLOBIN 8.7 g/dL (14.0-18.0); IMM GRAN# 0.82 X1000 (0.0-0.04); IMM GRAN% 5.2 % (0.0-0.5); LYMPH# 0.88 X1000 (1.2-3.4); LYMPH% 5.5 % (20.5-51.1); MANUAL DIFF NEEDED? YES; MCH 31.1 PG (27-31); MCHC 31.3 g/dL (33-37); MCV 99.3 FL (81-99); MONO# 1.81 X1000 (0.11-0.59); MONO% 11.4 % (1.7-9.3); MPV 10.2 FL (7.4-10.4); NEUT% 74.8 % (42.2-75.2); PLT 261 X1000 (130-400)
[2017-02-02 21:11] LABS: BANDS 2 % (0-1); EOS 1 % (1-10); LYMPHS 12 % (21-51); MONO 6 % (1-9)
[2017-02-02 21:12] LABS: POLYCHROM 1+
[2017-02-02 21:13] LABS: HYPOCHROM OCCASIONAL
[2017-02-02 21:14] LABS: LARGE PLATELETS OCCASIONAL
[2017-02-03] MEDS: HUMALOG SUBQ SCH ×5 (00:15→17:17)
[2017-02-03] MEDS: MERREM 1 GM in NS 50 ML IV SCH ×2 (01:19→10:02)
[2017-02-03] MEDS: XOPENEX NEB INH SCH ×4 (03:36→15:57)
[2017-02-03] MEDS: PROTONIX IV SCH (04:03)
[2017-02-03] MEDS: SODIUM CHLORIDE 0.9% INJ SCH (04:03)
[2017-02-03 04:32] LABS: ALLEN TEST YES; BLOOD TYPE ARTERIAL; DRAW SITE R RADIAL; METHB 1.1 % (0.0-1.5); O2(CT) 11.4 mL/dL (15.0-23.0); PO2(98.6) 129 mmHg (60-100); SAMPLE BLOOD; SAO2 99.6 % (95.0-100.0); THB 8.3 g/dL (11.5-17.4); pH(98.6) 7.45 (7.35-7.45)
[2017-02-03 04:45] LABS: MODALITY BI PAP; PCO2(98.6) 62 mmHg (35-45)
[2017-02-03 05:27] LABS: BASO% 0.5 % (0.0-0.8); EOS% 2.4 % (0.0-10.0); HEMOGLOBIN 8.1 g/dL (14.0-18.0); IMM GRAN# 0.74 X1000 (0.0-0.04); IMM GRAN% 5.8 % (0.0-0.5); LYMPH# 0.59 X1000 (1.2-3.4); LYMPH% 4.7 % (20.5-51.1); MANUAL DIFF NEEDED? YES; MCH 30.8 PG (27-31); MCHC 31.2 g/dL (33-37); MCV 98.9 FL (81-99); MONO# 1.56 X1000 (0.11-0.59); MONO% 12.3 % (1.7-9.3); MPV 10.3 FL (7.4-10.4); NEUT% 74.3 % (42.2-75.2); PLT 241 X1000 (130-400); RBC 2.63 XMIL (4.7-6.1)
[2017-02-03 05:39] LABS: INR 1.18; PROTIME 12.5 Seconds (9.2-11.7)
[2017-02-03 05:41] LABS: HEMATOCRIT 26.5 % (42.0-52.0); HEMOGLOBIN 8.4 g/dL (14.0-18.0); MCH 32.4 PG (27-31); MCHC 31.7 g/dL (33-37); MCV 102.3 FL (81-99); MPV 10.4 FL (7.4-10.4); RBC 2.59 XMIL (4.7-6.1)
[2017-02-03 05:54] LABS: AGAP 8; ALBUMIN 2.2 g/dL (3.5-5.0); ALKALINE PHOSPHATASE 56 U/L (32-122); BUN 46 mg/dL (8-22); CALCIUM 7.6 mg/dL (8.8-10.2); CHLORIDE 92 mmol/L (98-107); COSMO 285; GOT 82 U/L (10-34); GPT 36 U/L (10-44); POTASSIUM 4.2 mmol/L (3.5-5.1); SODIUM 135 mmol/L (136-145); TCO2 35 mmol/L (25-35); TOTAL BILIRUBIN 4.36 mg/dL (0.20-1.00); TOTAL PROTEIN 5.4 g/dL (6.3-8.3)
[2017-02-03] MEDS: SODIUM CHLORIDE 0.9% INJ PRN (06:22)
[2017-02-03] MEDS: SYNTHROID IV SCH (06:22)
[2017-02-03 07:05] LABS: BANDS 8 % (0-1); LYMPHS 4 % (21-51); MONO 4 % (1-9)
--- NOTE | 2017-02-03 07:17 | Diag Imaging Result Doc PS360 ---
EXAM: CHEST-PORTABLE INDICATION: respiratory failure TECHNIQUE: One view COMPARISON: 02/02/2017 FINDINGS: Right central line is in stable position. Increased interstitial markings bilaterally persist and however, they may have improved marginally during the interval. There are no new consolidations. Cardiac silhouette is stable. IMPRESSION: Suggestion of slight improvement of increased interstitial markings throughout both lungs. Electronically signed by Zachary Blanchard 02/03/2017 7:14 AM
--- NOTE | 2017-02-03 07:54 | DISCHARGE SUMMARY ---
ADMISSION DATE: 01/17/2017 DISCHARGE DATE: DISCHARGE DIAGNOSES: 1. Acute cholecystitis, status post open cholecystostomy tube placement. 2. Sepsis on admission with a positive blood culture on 01/16/2017 that showed a Streptococcus mitis/Streptococcus oralis. 3. 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 4. Status post evacuation of an abdominal wall hematoma. 5. Acute kidney injury. 6. History of mechanical mitral valve replacement. 7. Hypothyroidism. 8. Ischemic cardiomyopathy. 9. Leukocytosis. 10. Protein calorie malnutrition. 11. Bleeding from his abdominal wound, likely secondary to anticoagulation with heparin drip. HOSPITAL COURSE: This is a 76-year-old, male with an extensive past medical history of heart disease which includes coronary artery disease, status post stent and CABG , congestive heart failure, hypertension, hyperlipidemia, status post mitral valve replacement, as well as diabetes mellitus, hypothyroidism, and colorectal cancer. This patient was admitted on 01/17/2017. His main complaint was fatigue, weakness, chills, and shortness of breath that began probably 2-3 days before admission. As per the family, he was progressively worse. They reported that he also has been confused with chills but they did not mention fever. As per the , he has been complaining of abdominal discomfort and he has not been eating much. The patient or his family denied him having any reports of headache, chest pain, vomiting, diarrhea, or constipation. As per the , he does have swelling of his legs sometimes. This has been a little bit worse over the past few days as well previous to the admission. Like I mentioned before, this patient has a history of colorectal cancer and has a colostomy. Upon initial presentation to the ER, he was reported by staff to be slightly confused. His blood sugar initially was 63 but improved after eating. His reported that he has not been eating well, though she was still giving him his diabetic medication. Upon admission, this patient was pale and diaphoretic. His initial lactate in the ER was 6.2. He was given 2 L of normal saline bolus. A CT scan of the abdomen and pelvis was also performed which showed that the patient had cholelithiasis. Also, an ultrasound of the right upper quadrant was performed which showed cholelithiasis and gallbladder wall thickening. The patient received antibiotics in the ED. Surgery department was consulted and the patient was admitted to the ICU secondary to sepsis and cholelithiasis. His INR at presentation was elevated. Cardiology department evaluated this patient. They reversed his INR with frozen plasma and they put this patient on a heparin drip perioperatively. Once a laparoscopic cholecystectomy that was already planned is about to be done, the heparin drip can be stopped. Also, we made sure that the INR was at least 1.5 or lower. All the risks, benefits, and alternatives to surgery were discussed with the patient and the family. At that time, they understood and they were somewhat agreeable, although we were determining the function of his heart and whether the family wanted to move this patient closer to his heart surgeon at [facility]. On 01/17/2017, this patient was evaluated by pulmonary department. Like I mentioned before, he has evidence of sepsis and in shock. Also, this patient has had acute hypoxemic and hypercapnic respiratory failure. He was intubated. On 01/18/2017, this patient went to the OR and an open cholecystostomy was performed by surgery. The surgeon found that the gallbladder was inflamed and thickened. However, the gallbladder did not have the typical acute inflammatory appearance. The omentum was not adhered to it. The bile was thick but not grossly purulent. This patient was transferred back to the ICU unit for further management. An echocardiogram was performed on 01/18/2017 that showed a technically difficulty study. Mechanical mitral valve prosthesis appears to be functioning. Moderate tricuspid regurgitation with moderate pulmonary hypertension by Doppler, mild to moderate concentric left hypertrophy with estimated left ventricular ejection fraction of 25%, concentric global hypokinesis, and mild dyskinesis of the inferior base. The apex was not well visualized and cannot exclude an apical thrombus. Moderate to severe atrial enlargement, borderline aortic root enlargement, mild right side chamber enlargement with mildly reduced right ventricular systolic function. This patient continues to be septic with multiorgan failure. Cardiology followed this patient and they thought that eventually this patient will need a transesophageal echocardiogram to evaluate the mitral valve but we could not do it so we are treating this patient as if this was endocarditis. We weaned this patient off the ventilator and his breathing was getting better around 01/21/2017. This patient also presented with pulmonary edema. We have been using furosemide for this. Then this patient started having ventricular tachycardia and cardiology department has been following this patient closely. They have been managing this patient with amiodarone and also beta blockers. We have been dealing with pulmonary edema. We have been continuously diuresing this patient. On 01/28/2017, an abdominal wall hematoma was drained by surgery. This patient has been on a heparin drip. It has been difficult to control the abdominal bleeding, he has been getting multiple transfusions. Today, 02/02/2017, we contacted [facility] for possible transfer. The family of this patient has been asking for this I do believe since the first days of admission. This patient has been accepted by Dr Homero Squires and we are going to transfer this patient as soon as we get a bed assigned. PHYSICAL EXAMINATION: Vital Signs: At the moment of my dictation, temperature. 97.5, pulse 93, respiratory rate 22, blood pressure on the monitor 104/53, oxygen saturation 100 % on 3 L of nasal cannula. General: This is an obese, male, lying in bed in no acute distress. HEENT: Head normocephalic. No trauma. PERRLA. Neck: Supple. No JVD. No masses. Central trachea. Lungs: Coarse breath sounds, decreased at the bases with rales. Abdomen: There is a dressing applied to the right side of the patient's abdomen. Positive bowel sounds. Extremities: No edema. No clubbing. No cyanosis. Neurological Examination: The patient is awake and alert. He is able to move all 4 extremities. LABORATORY: WBC 13.4, hemoglobin 6.4, hematocrit 21.2, platelets 256,000. Sodium 136, potassium 4.4, chloride 93, bicarbonate 34, BUN 51, creatinine is 1.3, glucose 197, calcium 7.9, phosphorus 2.6. AST 67, ALT 32, alkaline phosphatase 54, albumin 2.2, prealbumin 6.7. ASSESSMENT AND PLAN: This patient is receiving multiple blood transfusions today, a total of 3 P- RBCs. From his wound, he has been bleeding and surgery department is taking care of this. This patient will be transferred to the [facility] once a bed is available. cc: MD ASUNCION Palencia
[2017-02-03] MEDS: NS NEB INH SCH ×2 (07:59→11:32)
[2017-02-03] MEDS: LASIX IV SCH (09:51)
[2017-02-03] MEDS: LOPRESSOR PO SCH ×3 (09:52→17:29)
[2017-02-03] MEDS: CORDARONE PO SCH (09:52)
[2017-02-03] MEDS: MINERAL OIL PO SCH (10:02)
[2017-02-03] MEDS: HEPARIN 25,000 UNITS/D5W 25,000 UNIT/250 ML IV.SOLN IV SCH (10:05)
[2017-02-03] MEDS: VANCOMYCIN 1.2 GM in NS 250 ML IV SCH (10:15)
[2017-02-03 12:10] LABS: BASO% 0.6 % (0.0-0.8); EOS# 0.29 X1000 (0.0-0.7); EOS% 2.2 % (0.0-10.0); HEMATOCRIT 26.2 % (42.0-52.0); IMM GRAN# 0.63 X1000 (0.0-0.04); IMM GRAN% 4.8 % (0.0-0.5); LYMPH# 0.74 X1000 (1.2-3.4); LYMPH% 5.7 % (20.5-51.1); MANUAL DIFF NEEDED? NO; MCH 30.8 PG (27-31); MCHC 30.5 g/dL (33-37); MCV 100.8 FL (81-99); MONO# 1.35 X1000 (0.11-0.59); MONO% 10.4 % (1.7-9.3); MPV 10.4 FL (7.4-10.4); NEUT% 76.3 % (42.2-75.2); PLT 231 X1000 (130-400)
--- NOTE | 2017-02-03 14:44 | PROGRESS NOTE ---
DATE: 02/03/2017 SUBJECTIVE: Mr. Powers appears to be doing fairly well today. He has no complaints presently. There is some mild confusion but overall he seems to be answering questions and following commands appropriately. PHYSICAL EXAMINATION: He is afebrile. Heart rates in the low 100. Most recent blood pressure is documented at 134/70. His I's and O's continue to be positive. Over the last 24 hours he is positive roughly 2.1 L. General: No acute distress. Cardiovascular: He is in what appears to be regular rate and rhythm. No obvious murmurs. He has a mechanical S1. He has 1+ lower extremity edema. Chest: Coarse upper airways noted bilaterally. Abdomen: Soft. No obvious tenderness to palpation. No organomegaly. PERTINENT DATA: White count is 12.9. His hematocrit is 26.2, platelet count 231,000. He does have a left shift with a bandemia of 8. His sodium is 135, potassium 4.2, BUN is 46, creatinine is 1.1 which is down from 51 and 1.3 yesterday. His T bilirubin is 4.36. ASSESSMENT: 1. Likely endocarditis. 2. Congestive heart failure with some evidence of volume overload. PLAN: We will increase his Lasix. Currently he is getting 80 mg IV b.i.d. I will change that over to q.8. We are currently awaiting bed availability at [facility]. Hopefully we can transition him over to a better oral diet to eventually discontinue the TPN as he is getting quite a lot of fluids with that. Again I will increase the furosemide to 80 mg IV q.8. He does have laboratories ordered for the morning and we will continue to trend his CBCs. cc: Wilton Graff MD
--- NOTE | 2017-02-03 15:30 | PROGRESS NOTE ---
DATE: 02/03/2017 SUBJECTIVE: This patient looks more awake and alert today. He was able to say his name. He recognized his , he was following commands. No respiratory distress. We are still waiting for a bed at [facility] to transfer this patient. OBJECTIVE: Vital Signs: Temperature 97.6 degrees, pulse 108, respiratory rate 14, blood pressure 134/70, O2 saturation 99 on 3 L of nasal cannula. HEENT: Head normocephalic. No trauma. PERRLA. Neck: Supple. No JVD. No masses. Central trachea. Chest: Coarse breath sounds with rales at the bases bilaterally. Abdomen: There is a dressing applied to the right side of the patient's abdomen with some serosanguineous material. Positive bowel sounds. Soft. Extremities: No edema. No clubbing. No cyanosis. Neurological: The patient is awake and alert and he is able to move all 4 extremities. He is answering some of my simple questions and following commands. LABORATORY: WBC 12.9, hemoglobin 8, hematocrit 26.2, platelets 231,000. Sodium 135, potassium 4.2, chloride 92, bicarbonate 35, BUN 46, creatinine 1.1, glucose 158, calcium 7.6, albumin 2.2. ASSESSMENT AND PLAN: 1. 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 Continue with IV antibiotics. Infectious Disease Department is following this patient. 2. Anemia of acute blood loss. This patient was transfused yesterday and this patient does have oozing from his abdomen wound site but he requires heparin due to his valve. We will continue to monitor closely and like I mentioned before, this patient was transfused yesterday. Hemoglobin looks stable today. 3. Status post abdominal wall hematoma evacuation. Continue management as per General surgery. 4. Acute kidney injury. This is getting better. Continue to monitor. 5. Mechanical mitral valve replacement. Continue with heparin drip. 6. Hypothyroidism. Continue with Synthroid. 7. Ischemic cardiomyopathy. Aware. Cardiology is on board. 8. Morbid obesity. Aware. 9. Leukocytosis. This is getting slowly better. Yesterday was 15.9, today is 2.9. 10. Acute cholecystitis, status post open cholecystostomy tube placement. Management as per Surgery Department. 11. Volume overload. This patient remains on furosemide. 12. GI prophylaxis with IV Protonix. 13. Protein calorie malnutrition. Continue with TPN. 14. DVT prophylaxis. This patient is on a heparin drip. This patient looks a little bit more stable compared with yesterday. We are waiting for a bed at [facility] to be able to transfer this patient. CRITICAL CARE TIME: 35 minutes. cc: Nino Hernández MD
[2017-02-03 16:13] VITALS: BP 168/133
--- NOTE | 2017-02-03 17:56 | PROGRESS NOTE ---
DATE: 02/03/2017 SUBJECTIVE: He seems to be feeling somewhat better today. No nausea. He is drinking some liquids. OBJECTIVE: Vital Signs: He is afebrile. Vital signs are stable. General: He is awake and alert. Mildly confused but following commands and not agitated. Respiratory: There are some wheezes bilaterally. CV: Regular. GI: Soft, with some bowel sounds. Nontender. He has air and stool in his colostomy bag. His right upper quadrant incision was evaluated. There is bloody gauze packing, I left this intact for continued pressure dressing. LABORATORY: His hemoglobin and hematocrit is reviewed and appears to be stable over last evening and this morning. His white blood cell count is improving. ASSESSMENT AND PLAN: A 76-year-old male status post cholecystostomy tube for presumed cholecystitis. He also is being treated for strep bacteremia and endocarditis. He has a hematoma of his right anterior abdominal wall that drains intermittently. He is on a heparin drip for his prosthetic heart valve. He is currently being transferred to [facility] for further evaluation, especially with cardiovascular surgery. cc: Giacomo Stover MD
[2017-02-03] MEDS ORDERED: LASIX IV SCH (18:00)
[2017-02-03] MEDS ORDERED: [UNRECOGNIZED DRUG - OTHER] IV SCH ×6 (18:00)
[2017-02-03] MEDS ORDERED: TPN ELECTROLYTES IV SCH ×6 (18:00)
[2017-02-03] MEDS ORDERED: HUMULIN R IV SCH ×6 (18:00)
[2017-02-03] MEDS ORDERED: SODIUM PHOSPHATE IV SCH ×6 (18:00)
[2017-02-03] MEDS: LIPOSYN 20% 250 ML IV SCH (18:08)
== END 2017-02-03 19:29 | disposition short-term general hospital (02) ==
LOC: ED 21:09 → SUATTDRO 01-17 01:27 → ICU 01-17 01:27
PROVIDERS: ATTEND Internal Medicine